=== PATIENT | male | born 1935 | race Caucasian/White ===

== ENCOUNTER 2019-12-06 21:07 | Emergency (ER) | payer OTHER, BC ==
--- OUTSIDE RECORDS SUMMARY | 2019-12-06 21:10 | XMS REPORT | Continuity of Care Document ---
:1935 Author Organization [facility] t Address 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 and and duodenum duodenum Anemia Anemia Disease Active 2017-04 [place] 219 Methodi 00:00: st 00 Coronary Coronary Disease Active 2017-04 [place] on artery artery 2-19 Methodi disease disease 00:00: st involving involving 00 picayune picayune coronary coronary artery artery Essential Essential Disease Active 2017-04 Simone ston hypertensi hypertensi 2-19 Me thodi on on 00:00: st 00 Type 2 Type 2 Disease Active 2017-04 [place] diabetes diabetes 2-19 Method i mellitus mellitus 00:00: st 00 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 [place] hyperchole hyperchole 2-19 Me thodi sterolemia sterolemia 00:00: st 00 Acute Acute Disease Active 2017-04 Overview: [place] blood loss blood loss 2-19 Added Me thodi anemia anemia 00:00: automatic st 00 ally from request for surgery [id number] Carotid Carotid Disease Active [place] stenosis, stenosis, 1-11 Meth maira right right 00:00: st 00 Post-opera Post-opera Disease Active [place] tive pain tive pain 1-11 Meth maira 00:00: st 00 Hyperchole Problem Active 2018-11-28 M emoria sterolemia 00:44:14 l (disorder) Jules combs Hyperchole sterolemia (disorder) Active Problem 11/28/2018 Medical Group Hypertensi Problem Active 2018-11-28 M emoria ve 00:44:14 l disorder, [place] systemic Hypertensi arterial ve (disorder) disorder, systemic arterial (disorder) Active Problem 11/28/2018 Medical Group History of Problem Active 2018-11-28 M emoria adenomatou 00:44:14 l s polyp of History Her page colon of (situation adenomatou ) s polyp of colon (situation ) Active Problem 11/28/2018 Medical Group Allergies, Adverse Reactions, Alerts Allergy Allergy Status Severity Reaction(s) Onset Inactive Treating Comm ents Source Name Type Date Date Clinician No Known No Known Active Memori a Medicati Medicati l on on Saurav Jovel s s Family History Family Member Diagnosis Comments Start Date Stop Date Source Natural father Heart disease [facility] Natural mother Heart disease [facility] Social History Social Habit Start Date Stop Date Quantity Comments Source Sex Assigned At [facility] ethodist Social History 2018-11-10 2018-11-10 [facility] Julieta haywood 18:46:08 18:46:08 Alcohol intake 2018-04-10 2018-04-10 Current drinker [place] [facility] 00:00:00 00:00:00 of alcohol (finding) Tobacco Comment 2017-04-25 2017-04-25 quit in 1981 [facility] 00:00:00 00:00:00 Alcohol Comment 2017-04-25 2017-04-25 once in a while [facility] 00:00:00 00:00:00 - beer Smoking Status Start Date Stop Date Source Former smoker 2018-04-10 00:00:00 2018-04-10 00:00:00 [facility] Medications Ordered Filled Start Stop Current Ordering Indication Dosage Frequency Signature Comments Components Source Medication Medication Date Date Medication? Clinician (SIG) Name Name polyethylen Yes See Helen freitas e glycol 11-10 Instructio l 3350 with 19:01: ns, as Jules combs electrolyte 00 directed, s oral # 4,000 powder for mL, 0 solution Refill(s), Pharmacy: [facility] [place], this is the generic of Golytely being used as a bowel prep, not Miralax simvastatin Yes 40 mg = 1 M emoria 40 mg oral 7-29 tab, PO, l tablet 18:46: Bedtime, # Sima nn 00 90 tab, 1 Refill(s) Acetaminoph Yes 1 tab, PO, Memoria en 325 MG / 7-29 Q6H, 0 l Hydrocodone 18:46: Refill(s) [place] Bitartrate 00 10 MG Oral Tablet [[place] 10/325] finasteride Yes 5 mg = 1 Me moria 5 mg oral 7-29 tab, PO, l tablet 18:46: Daily, # [place] 00 30 tab, 0 Refill(s) Aspirin Yes 0 Memoria 7-29 Refill(s) l 18:46: Saurav 00 terazosin Yes 10 mg = 1 Mem oria 10 mg oral 7-29 cap, PO, l capsule 18:46: Bedtime, 0 Herm jero 00 Refill(s) simvastatin 2017-04 Yes 40mg QD Take 40 mg [place] (ZOCOR) 40 2-21 by mouth Metho di MG tablet 19:28: nightly. st 50 terazosin 2017-04 Yes 10mg QD Take 10 mg [place] (HYTRIN) 5 2-21 by mouth Metho di MG capsule 19:28: nightly. st 50 HYDROcodone 2017-04 Yes 1{tbl} Q6H Take 1 [place] -acetaminop 2-21 tablet by Met matt jenkins (NORCO) 19:28: mouth st 10-325 mg 50 every 6 per tablet (six) hours as needed for moderate pain. latanoprost 2017-04 Yes 1[drp] QD Administer [place] (XALATAN) 2-21 1 drop to Metho di 0.005 % 19:28: both eyes st ophthalmic 50 nightly. solution Vital Signs Vital Name Observation Time Observation Value Comments Source Height 2018-11-10 18:42:00 175.26 cm Monty Mg Weight 2018-11-10 18:42:00 Monty Mg Heart Rate 2018-11-10 18:42:00 Monty Mg BMI Calculated 2018-11-10 18:42:00 Helen Mike Systolic (mm Hg) 2018-11-10 18:42:00 Ryan kayli Saurav Diastolic (mm Hg) 2018-11-10 18:42:00 Mem orial [place] Procedures Procedure Date / Time Performed Performing Clinician Kenneth torres Colonoscopy 2018-11-20 05:00:00 [facility] Cataract surgery [facility] Jules n Heart valvuloplasty [facility] Hiatus hernia repair [facility] He ann Open heart surgery [facility] jero Repair [facility] heart valve [facility] Plan of Care Planned Activity Planned Date Details Comments Source Future Scheduled 2020-01-14 INFLUENZA VACCINE [place] [facility] 00:00:00 [code = INFLUENZA VACCINE] Future Scheduled 2001 65+ PNEUMOCOCCAL [place] [facility] 00:00:00 VACCINE (1 of 2 - PCV13) [code = 65+ PNEUMOCOCCAL VACCINE (1 of 2 - PCV13)] Future Scheduled 1986 SHINGLES VACCINES (#1) [place] [facility] 00:00:00 [code = SHINGLES VACCINES (#1)] Future Scheduled 1946 DIABETIC FOOT EXAM [place] [facility] 00:00:00 [code = DIABETIC FOOT EXAM] Future Scheduled 1946 URINE MICROALBUMIN [place] [facility] Test 00:00:00 [code = URINE MICROALBUMIN] Future Scheduled 1936 DIABETIC RETINAL EYE [place] [facility] Test 00:00:00 EXAM [code = DIABETIC RETINAL EYE EXAM] Encounters Start End Encounter Admission Attending Care Care Encounter Source Date/Time Date/Time Type Type Clinicians Facility Department ID 2018-11-24 2018-11-25 Outpatient [facility] [id number] 15:55:39 23:59:59 00 2018-11-11 2018-11-11 Outpatient [facility] [id number] 10:00:00 23:59:59 2018-11-10 2018-11-10 Outpatient Joseph [facility] [id number] 14:15:00 23:59:59 Aj Mittal 00 Results This patient has no known results.
--- OUTSIDE RECORDS SUMMARY | 2019-12-06 21:10 | XMS REPORT | Clinical Summary ---
:1935 Author Organization [facility] Address [address] [place] [address] Care Team Providers Name Role Phone Roge Hays MD Primary Care Provider Allergies No Known Allergies Medications Medication Sig Dispensed Refills Start Date End Date Status simvastatin (ZOCOR) Take 40 mg by mouth 0 Active 40 MG tablet nightly. terazosin (HYTRIN) 5 Take 10 mg by mouth 0 Active MG capsule nightly. HYDROcodone-acetamino Take 1 tablet by 0 Active phen (NORCO) 10-325 mouth every 6 (six) mg per tablet hours as needed for moderate pain. latanoprost (XALATAN) Administer 1 drop 0 Active 0.005 % ophthalmic to both eyes solution nightly. 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/07/2018 duodenum Anemia 04/02/2018 Coronary artery disease involving [place] coronary elisabet ry 04/02/2018 Essential hypertension 04/02/2018 Type 2 diabetes mellitus 04/02/2018 Pure hypercholesterolemia 04/02/2018 Acute blood loss anemia 04/02/2018 Overview: Added automatically from request for edith romeo [id number] Carotid stenosis, right 04/25/2017 Post-operative pain 04/25/2017 Family History Medical History Relation Name Comments Heart disease Father Heart disease Mother Relation Name Status Comments Father Mother Social History Tobacco Use Types Packs/Day Years Used Date Former Smoker 15 Smokeless Tobacco: Never Used Comments: quit in 1980 Alcohol Use Drinks/Week oz/Week Comments Yes once in a while - beer Sex Assigned at Date Recorded Not on file Job Start Date Occupation Industry Not on file Not on file Not on file Travel History Travel Start Travel End No recent travel history available. Last Filed Vital Signs Not on file Plan of Treatment Health Maintenance Due Date Last Done Comments DIABETIC RETINAL EYE EXAM 1935 DIABETIC FOOT EXAM 1945 URINE MICROALBUMIN 1946 SHINGLES VACCINES (#1) 1986 65+ PNEUMOCOCCAL VACCINE (1 of 2 - PCV13) 2001 INFLUENZA VACCINE 01/14/2020 Implants Implanted Type Area Canvas Cutter Hand Device Shelf Model / Identifier Expiration Serial / Lot Date Device Vasclr Clsr Vasoactive Intstnl Peptd 6fr Angio- Seal - [id number] Cardiovascular N/A: 12/13/2018 [id number] / Implanted: 02/04/2018 at [facility] (Quantity not on file) Implants N/A / [id number] Stent Crtd Xact Slf-Xpndbl Tprd Oleg 6-8x40mm - [id number] Perip eral or N/A: NIEVES 09/12/2020 [id number] / Implanted: 02/04/2018 at [facility] (Quantity not on file) Zach iary Stents N/A VASCULAR / DEVICES [id number] Kit Shunt Crtd Artery Rdopq Line 6in Strl Hume - [id number] Edith gical N/A: COVIDIEN 08/20/2021 [id number] / Implanted: 04/25/2017 at [facility] (Quantity not on file) Imp lants; N/A YIMI / Expanders; HEALTHCARE [id number] Extenders; Surgical Wires Catheter Thrmbtmy Neuron Max 088 Str 6fr 80x4cm - [id number] Edith gical N/A: [employer] [id number] / Implanted: 02/04/2018 at [facility] (Quantity not on file) Implants; N/A / Expanders; Extenders; Surgical Wires Fabric Vasclr Grft Velour 3in 3in 0.8cm 7.6cm Brad Francisco shield - [id number] Vascular Graft N/A: [employer] 04/14/2021 [id number] / Implanted: 04/25/2017 at [facility] (Quantity not on file) N/A RUBEN / [id number] Results Not on fileafter 12/05/2018 Insurance Payer Benefit Plan / Subscriber ID Effective Dates Phone Addre ss Type Group MEDICARE MEDICARE PART A xxxxxxxxxx 2001-Present [place], [place] Medicare AND B BCBS BCBS PAR/TRAD xxxxxxxxxxxx 2013-Present Indemnity PLAN Advance Directives For more information, please contact: [phone] Type Date Recorded Patient Executive Administrator Explanati on Advance Directives, Living 04/02/2018 12:40 PM Will and Medical Power of Packaging Machine Operator Code Status Date Activated Date Inactivated Comments Full Code 04/02/2018 4:13 PM 04/04/2018 11:28 PM Code Status decision reached by: Patient Full Code 04/02/2018 3:58 PM 04/02/2018 4:13 PM Code Status decision reached by: Patient
--- OUTSIDE RECORDS SUMMARY | 2019-12-06 21:10 | XMS REPORT | Continuity of Care Document ---
:1935 Author Organization [facility] Care Team Providers Name Role Phone [facility] Unavailable Un available Problems Problem Status Onset Classification Date Comments Sourc e Date Reported Hypercholesterolemia Active Problem 11/28/2018 MH (disorder) Medical Group Hypertensive disorder, Active Problem 11/28/2018 systemic arterial Me dical (disorder) Group History of adenomatous Active Problem 11/28/2018 polyp of colon Medic al (situation) Group Medications Medication Details Route Status Patient Ordering Order Source Instructions Provider Date polyethylene See Active glycol 3350 with Instruction 019 Med ical electrolytes s, as Group oral powder for directed, # solution 4,000 mL, 0 Refill(s), Pharmacy: [facility] [place], this is the generic of Golytely being used as a bowel prep, not Miralax simvastatin 40 40 mg = 1 Active MH mg oral tablet tab, PO, 019 Medical Bedtime, # Group 90 tab, 1 Refill(s) Acetaminophen 1 tab, PO, Active MH 325 MG / Q6H, 0 019 Medical Hydrocodone Refill(s) Group Bitartrate 10 MG Oral Tablet [[place] 10/325] finasteride 5 mg 5 mg = 1 Active oral tablet tab, PO, 019 Medical Daily, # 30 Group tab, 0 Refill(s) Aspirin 0 Refill(s) Active MH 019 Medical Group terazosin 10 mg 10 mg = 1 Active oral capsule cap, PO, 019 Medical Bedtime, 0 Group Refill(s) Allergies, Adverse Reactions, Alerts Substance Category Reaction Severity Reaction Status Date Comments S ource type Reported No Known Assertion Drug MH Medication allergy Medic al Allergies Group Immunizations No Data Provided for This Section Results No Data Provided for This Section Pathology Reports No Data Provided for This Section Diagnostic Reports No Data Provided for This Section Consultation Notes No Data Provided for This Section Discharge Summaries No Data Provided for This Section History and Physicals No Data Provided for This Section Vital Signs Vital Sign Value Date Comments Source Height 175.26 cm 11/10/2018 Medical Grou p Weight 86.875 11/10/2018 Medical Grou p Heart Rate 80 11/10/2018 Medical Grou p BMI Calculated 28.28 11/10/2018 Medical Gr oup Systolic (mm Hg) 136 11/10/2018 Medical Group Diastolic (mm Hg) 59 11/10/2018 Medical Group Encounters Location Location Encounter Encounter Reason Attending ADM DC Stat us Source Details Type Number For Provider Date Date Visit Outpatient [id number] Aj 11/10 [facility] Saurav MG Outpatient [id number] Aj 11/10 11/11 [facility] Ruiz /2018 Med ical ology Group [place] [facility] [id number] 11/11 Act randall [facility] Jules n , [facility] Outpatient [id number] 11/11 11/12 Internal /2018 Medical Medicine Group [place] [facility] Outside [id number] 11/24 11/26 Gastroenter Medical /2018 Medi sparkle ology Records Group [place] Procedures Procedure Code Date Perfomer Comments Source Colonoscopy [id number] 11/20/2018 Medical Group Cataract surgery [id number] Medic al Group Heart valvuloplasty [id number] Me dical Group [place] hernia [id number] Medical repair Group Open heart surgery [id number] Med ical Group Repair of heart [id number] Medica l valve Group Assessment and Plan No Data Provided for This Section Plan of Care No Data Provided for This Section Social History Social History Date Source Social History TypeResponse 11/10/2018 Medical G roup Alcohol Never Substance Abuse Use: None. Smoking Status Former smoker; Exposure to Tobacco Smoke None; Cigarette Smoking Last 365 Days No; Reg Smoking Cessation Counseling No entered on: 11/10/18 Family History No Data Provided for This Section Advance Directives No Data Provided for This Section Functional Status No Data Provided for This Section
[2019-12-06 22:11] LABS: Absolute Lymphocytes (CBC) 1.2 K/uL (0.7-4.9); Basophils % 0.7 % (0-1.3); Hematocrit 40.1 % (39.6-49.0); Lymphocytes % 26.1 % (15.3-44.8); MPV 8.8 fL (7.6-11.3); RBC Red Blood Cell Count 4.51 M/uL (4.33-5.43)
[2019-12-06 22:24] LABS: BUN Blood Urea Nitrogen 19 mg/dL (7-18); Bicarbonate 29 mmol/L (21-32); Glucose Level 135 mg/dL (74-106); Potassium 4.5 mmol/L (3.5-5.1); Sodium Level 136 mmol/L (136-145); Troponin (Emerg Dept Use Only) < 0.02 ng/mL (0.0-0.045)
--- NOTE | 2019-12-07 00:25 | ER ---
Nurse's Notes [facility] Name: Stephon Baig Age: 84 yrs Sex: Male : 1935 Arrival Date: 12/06/2019 Time: 21:11 Bed 13 Private MD: Diagnosis: Pleurisy;Pneumonia, unspecified organism Presentation: 12/05 21:24 Chief complaint: Patient states: "I think I am having a muscle spasms. I was picking up jd3 a heavy pot on Saturday and might have hurt my left shoulder. since then it hurts to move my left arm and turn my head. it feels like someone is stabbing me in my shoulder.". Coronavirus screen: At this time, the client does not indicate any symptoms associated with coronavirus-19. Ebola Screen: Patient negative for fever greater than or equal to 101.5 degrees Fahrenheit, and additional compatible Ebola Virus Disease symptoms. Initial Sepsis Screen: Does the patient meet any 2 criteria? No. Patient's initial sepsis screen is negative. Does the patient have a suspected source of infection? No. Patient's initial sepsis screen is negative. Risk Assessment: Do you want to hurt yourself or someone else? Patient reports no desire to harm self or others. Onset of symptoms was December 04, 2019. 21:24 Method Of Arrival: Ambulatory jd3 21:24 Acuity: GREGORIO 3 jd3 Historical: - Allergies: 21:34 No Known Allergies; jd3 - Home Meds: 21:34 Simvastatin Oral [Active]; Hytrin Oral [Active]; Aspirin Oral [Active]; jd3 Hydrocodone-Acetaminophen Oral [Active]; - PMHx: 21:34 bypass; heart vavle replacement; Hyperlipidemia; Kidney stones; steel plate to left jd3 arm; prostate problem; High Cholesterol; - PSHx: 21:34 heart valve; left arm; Hernia repair; jd3 - Immunization history:: Adult Immunizations unknown. - Social history:: Smoking status: Patient denies any tobacco usage or history of. - Family history:: not pertinent. - Hospitalizations: : No recent hospitalization is reported. Screenin:30 Abuse screen: Denies threats or abuse. Denies injuries from another. Nutritional rr5 screening: No deficits noted. Tuberculosis screening: No symptoms or risk factors identified. Fall Risk IV access (20 points). Total Cross Fall Scale indicates No Risk (0-24 pts). Assessment: 21:30 General: Appears in no apparent distress. uncomfortable, Behavior is calm, cooperative, rr5 appropriate for age. 21:30 Pain: Complains of pain in left shoulder Pain currently is 8 out of 10 on a pain scale. rr5 Quality of pain is described as aching, Pain began gradually, Is intermittent. Neuro: Level of Consciousness is awake, alert, obeys commands, Oriented to person, place, time, situation. Cardiovascular: Capillary refill < 3 seconds Patient's skin is warm and dry. Respiratory: Airway is patent Respiratory effort is even, unlabored, Respiratory pattern is regular, symmetrical. GI: No signs and/or symptoms were reported involving the gastrointestinal system. : No signs and/or symptoms were reported regarding the genitourinary system. EENT: No signs and/or symptoms were reported regarding the EENT system. Derm: Skin is fragile, is thin, Skin temperature is warm. Musculoskeletal: Reports pain in left shoulder Pain is 8 out of 10 on a pain scale. 22:20 Reassessment: Patient appears in no apparent distress at this time. Patient is alert, rr5 oriented x 3, equal unlabored respirations, skin warm/dry/pink. awaiting for result. 23:10 Reassessment: Patient appears in no apparent distress at this time. Patient is alert, rr5 oriented x 3, equal unlabored respirations, skin warm/dry/pink. awaiting for CT PE angio. 23:40 Reassessment: Patient appears in no apparent distress at this time. Patient is alert, rr5 oriented x 3, equal unlabored respirations, skin warm/dry/pink. back from CT. 12/06 00:40 Reassessment: Patient appears in no apparent distress at this time. Patient is alert, rr5 oriented x 3, equal unlabored respirations, skin warm/dry/pink. discharge instruction given and explained without complaints made. Vital Signs: 12/05 21:29 BP 151 / 60; Pulse 77; Resp 16 S; Temp 98.0(O); Pulse Ox 100% on R/A; Weight 83.01 kg jd3 (R); Height 5 ft. 9 in. (175.26 cm) (R); Pain 8/10; 22:57 BP 146 / 62; Pulse 68; Resp 17; Pulse Ox 99% ; rr5 12/06 00:00 BP 126 / 89; Pulse 79; Resp 15; Pulse Ox 99% ; rr5 00:40 BP 131 / 72; Pulse 60; Resp 16; Pulse Ox 99% on R/A; rr5 12/05 21:29 Body Mass Index 27.02 (83.01 kg, 175.26 cm) jd3 ED Course: 12/05 21:11 Patient arrived in ED. es 21:25 Naveen Nunez MD is Attending Physician. rn 21:25 Stephon Watkins RN is Primary Nurse. rr5 21:29 Triage completed. jd3 21:30 Arm band placed on. jd3 21:30 Patient has correct armband on for positive identification. Bed in low position. Call rr5 light in reach. site monitor on. Pulse ox on. NIBP on. 21:40 EKG done, by ED staff, reviewed by Naveen Nunez MD. rr5 21:59 Inserted saline lock: 20 gauge in right forearm, using aseptic technique. Blood rr5 collected. 23:43 CT Chest For PE Angio In Process Unspecified. EDMS 12/06 00:35 covid. rr5 00:35 No provider procedures requiring assistance completed. IV discontinued, intact, rr5 bleeding controlled, No redness/swelling at site. Pressure dressing applied. Administered Medications: 00:25 Drug: LevaQUIN 500 mg Route: PO; mt2 00:41 Follow up: Response: No adverse reaction rr5 Outcome: 00:25 Discharge ordered by MD. rn 00:41 Discharged to home ambulatory. rr5 00:41 Condition: stable 00:41 Discharge instructions given to patient, Instructed on discharge instructions, follow up and referral plans. medication usage, Demonstrated understanding of instructions, follow-up care, medications, Prescriptions given X 1. 00:41 Patient left the ED. rr5 Addendum: 12/09/2019 14:53 Addendum: COVID-19 Result: Negative result given to RN to notify pt. Unable to leave a a5 voice mail due to the number provided was either not a working number, the voice mail has not been set up, or the voice mailbox is full.. 12/14/2019 16:22 Addendum: COVID-19 Result: Negative result given to RN to notify pt. Notified pt of i w negative COVID 19 swab results. Pt advised that even with a negative test result they should remain in isolation until symptom free for 3 days without medication. Pt also advised to return to the ED for worsening symptoms. Signatures: Dispatcher [employer] Do [place] Irene, RN RN iw Naveen Nunez MD MD rn Calderon, Audri, RN RN aa5 Laurent Julien RN RN jd3 Stephon Watkins RN RN rr5 Fransisca Minaya RN RN mt2
--- NOTE | 2019-12-07 00:25 | EDPHYS ---
Physician Documentation [facility] Name: Stephon Baig Age: 84 yrs Sex: Male : 1935 Arrival Date: 12/06/2019 Time: 21:11 Bed 13 Private MD: ED Physician Naveen Nunez HPI: 12/05 22:13 This 84 yrs old Male presents to ER via Ambulatory with complaints of rn Shoulder Pain/thorax pain. 22:13 The patient or guardian complains of pain. left scapular area. Onset: The rn symptoms/episode began/occurred 2 day(s) ago. Modifying factors: the symptoms are alleviated by nothing. The symptoms are aggravated by deep breath. Severity of symptoms: At their worst the symptoms were moderate, in the emergency department the symptoms are unchanged. The patient has not experienced similar symptoms in the past. Reports left posterior thoracic and left shoulder pain, hurts to take deep breath, no known injury, does remember lifting something heavy the day before this happened, no fever/cough/chest pain/abd pain. Hurts a little when moves left arm. Did fall, but fall happened after pain had already started. . Historical: - Allergies: 21:34 No Known Allergies; jd3 - Home Meds: 21:34 Simvastatin Oral [Active]; Hytrin Oral [Active]; Aspirin Oral [Active]; jd3 Hydrocodone-Acetaminophen Oral [Active]; - PMHx: 21:34 bypass; heart vavle replacement; Hyperlipidemia; Kidney stones; steel plate to left jd3 arm; prostate problem; High Cholesterol; - PSHx: 21:34 heart valve; left arm; Hernia repair; jd3 - Immunization history:: Adult Immunizations unknown. - Social history:: Smoking status: Patient denies any tobacco usage or history of. - Family history:: not pertinent. - Hospitalizations: : No recent hospitalization is reported. ROS: 22:13 Constitutional: Negative for fever, chills, and weight loss, Eyes: Negative for injury, rn pain, redness, and discharge, Neck: Negative for injury, pain, and swelling, Cardiovascular: Negative for palpitations, and edema, Respiratory: Negative for shortness of breath, cough, wheezing, + pleuritic chest pain Abdomen/GI: Negative for abdominal pain, nausea, vomiting, diarrhea, and constipation, Back: Negative for injury and pain, MS/Extremity: Negative for injury and deformity, Skin: Negative for injury, rash, and discoloration, Neuro: Negative for headache, weakness, numbness, tingling, and seizure. Exam: 22:03 ECG was reviewed by the Attending Physician. rn 22:13 Constitutional: This is a well developed, well nourished patient who is awake, alert, rn and in no acute distress. Head/Face: Normocephalic, atraumatic. Neck: Trachea midline, no masses palpated, and no cervical lymphadenopathy. Supple, full range of motion without nuchal rigidity, or vertebral point tenderness. No Meningismus. Chest/axilla: Normal chest wall appearance and motion. Nontender with no deformity. No lesions are appreciated. Cardiovascular: Regular rate and rhythm. No pulse deficits. Respiratory: Speaking full sentences. + splinting with deep breath. No increased work of breathing, no retractions or nasal flaring. Abdomen/GI: soft, non-tender Back: No spinal tenderness. No costovertebral tenderness. Full range of motion. MS/ Extremity: Pulses equal, no cyanosis. Neurovascular intact. Full, normal range of motion. Equal circumference. Neuro: Awake and alert, GCS 15, oriented to person, place, time, and situation. Cranial nerves II-XII grossly intact. Motor strength 5/5 in all extremities. Sensory grossly intact. Cerebellar exam normal. Vital Signs: 21:29 BP 151 / 60; Pulse 77; Resp 16 S; Temp 98.0(O); Pulse Ox 100% on R/A; Weight 83.01 kg jd3 (R); Height 5 ft. 9 in. (175.26 cm) (R); Pain 8/10; 22:57 BP 146 / 62; Pulse 68; Resp 17; Pulse Ox 99% ; rr5 12/06 00:00 BP 126 / 89; Pulse 79; Resp 15; Pulse Ox 99% ; rr5 00:40 BP 131 / 72; Pulse 60; Resp 16; Pulse Ox 99% on R/A; rr5 12/05 21:29 Body Mass Index 27.02 (83.01 kg, 175.26 cm) jd3 MDM: 12/05 21:25 Patient medically screened. rn 12/06 00:21 Differential diagnosis: pleurisy, atelectasis, pneumonia, strain, COVID-19. Data rn reviewed: vital signs, nurses notes, lab test result(s), EKG, radiologic studies, CT scan, and as a result, I will discharge patient. Counseling: I had a detailed discussion with the patient and/or guardian regarding: the historical points, exam findings, and any diagnostic results supporting the discharge/admit diagnosis, lab results, radiology results, the need for outpatient follow up, to return to the emergency department if symptoms worsen or persist or if there are any questions or concerns that arise at home. Special discussion: Based on the patient's history, exam, and Dx evaluation, there is no indication for emergent intervention or inpatient Tx. It is understood by the patient/guardian that if the Sx's persist or worsen they need to return immediately for re-evaluation. I discussed with the patient/guardian in detail that at this point there is no indication for admission to the hospital. It is understood, however, that if the symptoms persist or worsen the patient needs to return immediately for re-evaluation. ED course: CT chest neg for PE. Shows haziness of bilateral lungs, possible early pneumonia, will swab for COVID-19 and dc home with OTC anti-inflammatories and return precautions.. 12/05 21:33 Order name: CBC with Diff; Complete Time: 22:32 rn 12/05 21:33 Order name: Basic Metabolic Panel; Complete Time: 22:32 rn 12/05 21:33 Order name: CT Chest For PE Angio rn 12/05 21:33 Order name: Troponin (emerg Dept Use Only); Complete Time: 22:32 rn 12/06 00:21 Order name: COVID-19 rn 12/05 21:33 Order name: IV Start; Complete Time: 21:59 rn 12/05 21:33 Order name: EKG; Complete Time: 21:34 rn 12/05 21:33 Order name: EKG - Nurse/Tech; Complete Time: 21:59 rn EC/23 22:03 Rate is 74 beats/min. Rhythm is regular. QRS Lagrange is Normal. DE interval is normal. QRS rn interval is normal. QT interval is normal. No Q waves. T waves are Inverted in leads V2, V3, V4. No ST changes noted. Clinical impression: NSR w/ Non-specific ST/T Changes. Interpreted by me. Reviewed by me. Administered Medications: 12/06 00:25 Drug: LevaQUIN 500 mg Route: PO; mt2 00:41 Follow up: Response: No adverse reaction rr5 Disposition: 12/07/19 00:25 Discharged to Home. Impression: Pleurisy, Pneumonia, unspecified organism. - Condition is Stable. - Discharge Instructions: Pleurisy, Community-Acquired Pneumonia, Adult, Wsgj-ig-Prit. - Prescriptions for Levaquin 500 mg Oral Tablet - take 1 tablet by ORAL route once daily for 10 days; 10 tablet. - Medication Reconciliation Form, Thank You Letter, Antibiotic Education, Prescription Opioid Use form. - Follow up: Private Physician; When: As needed; Reason: Recheck today's complaints, Re-evaluation by your physician. - Problem is new. - Symptoms have improved. Signatures: Dispatcher [employer] EDMS Naveen Nunez MD MD rn Davies, Jonathon RN RN jd3 Stephon Watkins RN RN rr5 Fransisca Minaya RN RN mt2 Corrections: (The following items were deleted from the chart) 00:41 00:25 12/07/2019 00:25 Discharged to Home. Impression: Pleurisy; Pneumonia, unspecified rr5 organism. Condition is Stable. Forms are Medication Reconciliation Form, Thank You Letter, Antibiotic Education, Prescription Opioid Use. Follow up: Private Physician; When: As needed; Reason: Recheck today's complaints, Re-evaluation by your physician. Problem is new. Symptoms have improved. rn
[2019-12-07] MEDS ORDERED: levoFLOXacin 500 MG TAB ONE (00:34)
--- NOTE | 2019-12-07 10:24 | RAD REPORT ---
EXAM DESCRIPTION: CT chest angiography with intravenous contrast CLINICAL HISTORY: 84-year-old male with left posterior chest pain with deep breath and left shoulder pain. TECHNIQUE: Following the administration of intravenous contrast, multiple high-resolution axial imag es of the chest were performed followed by sagittal and coronal reconstructed images. Sagittal and co andrews MIP images were reconstructed. The CT study is performed according to ALARA (as low as reasonab ly achievable) or ALARA/IMAGE GENTLY, with automatic adjustment of mA and/or kV according to patient size. Performed on: 12/06/2019 at 11:27 PM COMPARISON: No prior studies were available for comparison. FINDINGS: There is satisfactory visualization and contrast opacification of pulmonary arteries. No definite intra-arterial filling defects are identified to suggest acute or chronic pulmonary embolis m. The thoracic aorta is normal in caliber and contour without evidence of aneurysm or dissection. Th ere are moderate atherosclerotic calcifications along the thoracic aorta. The lungs are well expanded. There is some motion artifact on the images resulting in slight degradat ion of image quality. There is mild hazy opacification of the lungs bilaterally which may be related to breathing motion artifact. Mild edema or inflammatory changes are not entirely excluded. There is minimal fibrosis and/or atelectasis bilaterally. There are no pleural effusions. There is no pneumoth orax. The heart is top normal in size. There is no pericardial effusion. There is no definite reflux of con trast into the hepatic veins to suggest right heart strain.The RV/LV ratio is within normal limits. T here are remote postsurgical changes of the mediastinum. There are mildly prominent mediastinal lymph nodes which are nonspecific. These may be reactive infla mmatory in nature. No acute osseous abnormality is identified. There is degenerative spondylosis along the thoracic spin e. The upper abdominal structures reveal a 1.6 x 1.4 cm low density nodule arising from the apex of the right adrenal gland measuring approximately 7 Hounsfield units most consistent with an adrenal adenom a. No follow-up imaging is necessary. There is increased density in the region of the gallbladder fun dus suspicious for cholelithiasis. There is a small hiatal hernia. IMPRESSION: 1. No CT evidence to suggest acute or chronic pulmonary embolism, aortic aneurysm or aor tic dissection. 2. There is some breathing motion artifact on the images resulting in degradation of image quality. T here is very mild hazy opacification of the lungs which could be related to breathing motion artifact , edema or inflammatory changes. 3. Remote postsurgical changes of the mediastinum. 4. Mildly prominent, nonspecific mediastinal lymph nodes which may be reactive inflammatory in nature . 5. Approximately 1.6 x 1.4 cm right adrenal adenoma. No follow-up imaging is recommended. 6. Findings suspicious for cholelithiasis. 7. Small hiatal hernia. Electronically signed by: Vita Allen DO 12/07/2019 12:03 AM CDT Due to temporary technical issues with the PACS/Fluency reporting system, reports are being signed by the in house radiologist without review as a courtesy to ensure prompt reporting. The interpreting r adiologist is fully responsible for the content of the report.
[2019-12-11 20:43] VITALS: TEMP 98
[2019-12-11 20:45] VITALS: O2SAT 99
[2019-12-11 20:47] VITALS: BP 131/72
== END 2019-12-07 00:41 | disposition home or self-care (01) ==
LOC: ER 21:07
DX: J18.9 Pneumonia, unspecified organism (principal); Z20.828 Contact with and (suspected) exposure to other viral communicable diseases; R09.1 Pleurisy; E78.5 Hyperlipidemia, unspecified; E78.00 Pure hypercholesterolemia, unspecified; Z95.2 Presence of prosthetic heart valve; Z79.82 Long term (current) use of aspirin
CPT/HCPCS: 93005; 85025; 80048; 36415; 84484; 71275; 99285; U0002; Q9967

== ENCOUNTER 2020-01-06 19:23 | Inpatient (IN) | payer OTHER, BC ==
--- OUTSIDE RECORDS SUMMARY | 2020-01-06 19:26 | XMS REPORT | Clinical Summary ---
:1935 Author Organization [facility] Address [address] [place] [address] Care Team Providers Name Role Phone Roge Hays MD Primary Care Provider Allergies No Known Active Allergies Medications Medication Sig Dispensed Refills Start [...] duodenum Anemia 04/02/2018 Coronary artery disease involving [place] coronary elisabet ry 04/02/2018 Essential hypertension 04/02/2018 Type 2 diabetes mellitus 04/02/2018 Pure hypercholesterolemia 04/02/2018 Acute blood loss anemia 04/02/2018 Overview: Added automatically from request for edith romeo [id number] Carotid stenosis, right 04/25/2017 Post-operative pain 04/25/2017 [...] Assigned at Date Recorded Not on file Last Filed Vital Signs Not on file Plan of Treatment Health Maintenance Due Date Last Done Comments DIABETIC RETINAL EYE EXAM 1935 DIABETIC FOOT EXAM 1945 URINE MICROALBUMIN 1946 SHINGLES VACCINES (#1) 1986 65+ PNEUMOCOCCAL VACCINE (1 of 1 - PPSV23) 2001 INFLUENZA VACCINE 12/15/2019 Implants Implanted Type Area Chemical Processing Equipment Repairer Device Shelf Model / Identifier Expiration Serial / Lot Date Device Vasclr Clsr Vasoactive Intstnl Peptd 6fr Angio- Seal - [id number] Cardiovascular N/A: 12/13/2018 [id number] / Implanted: 02/04/2018 at [facility] (Quantity not on file) Implants N/A / [id number] Stent Crtd Xact Slf-Xpndbl Tprd Oleg 6-8x40mm - [id number] Perip eral or N/A: NIEVES 09/12/2020 [id number] / Implanted: 02/04/2018 at [facility] (Quantity not on file) Zach iary Stents N/A VASCULAR / DEVICES [id number] Kit Shunt Crtd Artery Rdopq Line 6in Strl [place] - [id number] Edith gical N/A: COVIDIEN 08/20/2021 [id number] / Implanted: 04/25/2017 at [facility] (Quantity not on file) Imp lants; N/A YIMI / Expanders; HEALTHCARE [id number] Extenders; Surgical Wires Catheter Thrmbtmy Neuron Max 088 Str 6fr 80x4cm - [id number] Edith gical N/A: [employer] [id number] / Implanted: 02/04/2018 at [facility] (Quantity not on file) Implants; N/A / Expanders; Extenders; Surgical Wires Fabric Vasclr Grft Velour 3in 3in 0.8cm 7.6cm Brad Francisco shield - [id number] Vascular Graft N/A: [employer] 04/14/2021 [id number] / Implanted: 04/25/2017 at [facility] (Quantity not on file) N/A RUBEN / [id number] Results Not on fileafter 01/05/2019 Insurance Payer Benefit Plan / Subscriber ID Effective Dates Phone Addre ss Type Group MEDICARE MEDICARE PART A [id number] 2001-Present [place], [place] Medicare AND B BCBS BCBS PAR/TRAD [id number] 2013-Present Indemnity PLAN (Home) [place] [address] Advance Directives For more information, please contact: [phone] Type Date Recorded Patient Supervising Editor News Reel Explanati on Advance Directives, Living 04/02/2018 12:40 PM Will and Medical Power of Director Stars Code Status Date Activated Date Inactivated Comments Full Code 04/02/2018 4:13 PM 04/04/2018 11:28 PM Code Status decision reached by: Patient Full Code 04/02/2018 3:58 PM 04/02/2018 4:13 PM Code Status decision reached by: Patient
--- OUTSIDE RECORDS SUMMARY | 2020-01-06 19:26 | XMS REPORT | Continuity of Care Document ---
:1935 Author Organization [facility] t Address [address] [place] [address] Care Team Providers Name Role Phone Roge [...] duodenum duodenum Anemia Anemia Disease Active 2017-04 [place] 19 Methodi 00:00: st 00 Coronary Coronary Disease Active 2017-04 [place] artery artery 2-19 Methodi disease disease 00:00: st involving involving 00 [place] coronary coronary artery artery Essential Essential Disease Active 2017-04 [place] hypertensi hypertensi 2-19 Me thodi on on 00:00: st 00 Type 2 Type 2 Disease Active 2017-04 [place] diabetes diabetes 2-19 Method i mellitus mellitus 00:00: st 00 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 [place] hyperchole hyperchole 2-19 Me thodi sterolemia sterolemia 00:00: st 00 Acute Acute Disease Active 2017-04 Overview: [place] n blood loss blood loss 2-19 Added Me thodi anemia anemia 00:00: automatic st 00 ally from request for surgery [id number] Carotid Carotid Disease Active [place] stenosis, stenosis, 1-11 Meth maira right right 00:00: st 00 Post-opera Post-opera Disease Active [place] tive pain tive pain 1-11 Meth maira 00:00: st 00 Hyperchole Problem Active 2018-11-28 M emoria sterolemia 00:44:14 l (disorder) Jules n Hyperchole sterolemia (disorder) Active Problem 11/28/2018 Medical Group Hypertensi Problem Active 2018-11-28 M emoria ve 00:44:14 l disorder, [place] systemic Hypertensi arterial ve (disorder) disorder, systemic [...] Stop Date Source Natural father Heart disease [facility] Natural mother Heart disease [facility] Social History Social Habit Start Date Stop Date Quantity Comments Source Sex Assigned At [facility] Social History 2018-11-10 2018-11-10 [facility] 18:[facility]:08 18:46:08 Tobacco use and 2018-04-10 2018-04-10 Never used [facility] ethodist exposure 00:00:00 00:00:00 Alcohol intake 2018-04-10 2018-04-10 Current drinker [place] [facility] 00:00:00 00:00:00 of alcohol (finding) Tobacco Comment 2017-04-25 2017-04-25 quit in 1980 [place] [facility] 00:00:00 00:00:00 Alcohol Comment 2017-04-25 2017-04-25 once in a while [facility] 00:00:00 00:00:00 - beer Smoking Status Start Date Stop Date Source Former smoker 2018-04-10 00:00:00 2018-04-10 00:00:00 [facility] Medications Ordered Filled Start Stop Current Ordering Indication Dosage Frequency Signature Comments Components Source Medication Medication Date Date Medication? Clinician (SIG) Name Name polyethylen Yes See Memori a e glycol 11-10 Instructio l 3350 with 19:01: ns, as Jules n electrolyte 00 directed, s oral # 4,000 powder for mL, 0 solution Refill(s), Pharmacy: [facility] [place], this is the generic of Golytely being [...] ermann Bitartrate 00 10 MG Oral Tablet [[place] 10/325] finasteride Yes 5 mg = 1 Me moria 5 mg oral 7-29 tab, PO, l tablet 18:46: Daily, # Saurav 00 30 tab, 0 Refill(s) Aspirin Yes [...] Comments Source Height 2018-11-10 18:42:00 175.26 cm [facility] Weight 2018-11-10 18:42:00 [facility] [place] Heart Rate 2018-11-10 18:42:00 [facility] [place] BMI Calculated 2018-11-10 18:42:00 Helen link Saurav Systolic (mm Hg) 2018-11-10 18:42:00 Ryan milan Saurav Diastolic (mm Hg) 2018-11-10 18:42:00 [facility] orial [place] Procedures Procedure Date / Time Performed Performing Clinician Sourc e Colonoscopy 2018-11-20 05:00:00 [facility] Cataract surgery [facility] Jules n Heart valvuloplasty [facility] [place] hernia repair [facility] rmann Open heart surgery [facility] jero Repair of heart valve [facility] Plan of Care Planned Activity Planned Date Details Comments Source Future Scheduled 2019-12-15 INFLUENZA VACCINE [place] [facility] Test 00:00:00 [code = INFLUENZA VACCINE] Future Scheduled 2001 65+ PNEUMOCOCCAL [place] [facility] Test 00:00:00 VACCINE (1 of 1 - PPSV23) [code = 65+ PNEUMOCOCCAL VACCINE (1 of 1 - PPSV23)] Future Scheduled 1986 SHINGLES VACCINES (#1) [place] [facility] Test 00:00:00 [code = SHINGLES VACCINES (#1)] Future Scheduled 1946 DIABETIC FOOT EXAM [place] [facility] Test 00:00:00 [code = DIABETIC FOOT EXAM] Future Scheduled 1946 URINE MICROALBUMIN [place] [facility] Test 00:00:00 [code = URINE MICROALBUMIN] Future Scheduled 1935 DIABETIC RETINAL EYE [place] [facility] Test 00:00:00 EXAM [code = DIABETIC RETINAL EYE EXAM] Encounters Start End Encounter Admission Attending Care Care Encounter Source Date/Time Date/Time Type Type Clinicians Facility Department ID 2018-11-24 2018-11-25 Outpatient [facility] [id number] 15:55:39 23:59:59 00 2018-11-11 2018-11-11 Outpatient [facility] [id number] 10:00:00 23:59:59 2018-11-10 2018-11-10 Outpatient Joseph [facility] [id number] 14:15:00 23:59:59 Aj Mittal 00 Results This patient has no known results.
--- OUTSIDE RECORDS SUMMARY | 2020-01-06 19:26 | XMS REPORT | Continuity of Care Document ---
:1935 Author Organization [facility] Care Team Providers Name Role Phone [facility] Unavailable Un available Problems Problem Status Onset [...] # solution 4,000 mL, 0 Refill(s), Pharmacy: [facility] [place], this is the generic of Golytely being used as a bowel prep, not Miralax simvastatin 40 40 mg = 1 Active [facility] mg oral tablet tab, PO, 019 Medical Bedtime, # Group 90 tab, 1 Refill(s) Acetaminophen 1 tab, PO, Active MH 325 MG / Q6H, 0 019 Medical Hydrocodone Refill(s) Group Bitartrate 10 MG Oral Tablet [[place] 10/325] finasteride 5 mg 5 mg = [...] Number For Provider Date Date Visit Outpatient [id number] Aj 11/10 [facility] Saurav MG Outpatient [id number] Aj 11/10 11/11 [facility] /2018 Med ical ology Group [place] Outpatient [id number] 11/11 Act randall [facility] Jules n , [facility] Outpatient [id number] 11/11 11/12 Internal /2018 [facility] [place] [facility] Outside [id number] 11/24 11/26 Gastroenter Medical /2018 Medi sparkle ology Records Group [place] Procedures Procedure Code Date Perfomer Comments Source Colonoscopy [id number] 11/20/2018 Medical Group Cataract surgery [id number] Medic al Group Heart valvuloplasty [id number] Me dical Group [place] hernia [id number] Medical repair Group Open heart surgery [id number] Med ical Group Repair of heart [id number] Medica l valve Group Assessment and Plan [...]
--- NOTE | 2020-01-06 20:30 | RAD REPORT ---
EXAM DESCRIPTION: CT - Stone Protocol - 01/06/2020 8:20 pm CLINICAL HISTORY: Flank pain. Abd pain;Flank pain COMPARISON: Stone Protocol dated 04/29/2019; Chest For Pe Angio dated 12/06/2019 TECHNIQUE: Axial images were obtained without oral or IV contrast. Lack of contrast limits solid org an and vascular assessment. The [id number] spans the entirety of the system partially obscuring uppermost abdomen and lung bases. Coronal reformatted images were obtained and reviewed. All CT scans are performed using dose optimization technique as appropriate and may include automated exposure control or mA/KV adjustment according to patient size. FINDINGS: Mild ground-glass opacities are present in both lower lobes. Small stones are present in t he gallbladder. Small hiatal hernia is noted. Imaged portions of the liver and spleen show no suspicious findings on non-contrast imaging. Small no dules are present in both adrenal glands, likely adenomas. No pathologic lymphadenopathy in the abdom en or pelvis. Tiny punctate calculi are present in both kidneys without hydronephrosis. No bowel obstruction, free air, free fluid or abscess. Normal appendix noted.Sigmoid diverticulosis c shiela is present without diverticulitis. Moderate fecal retention throughout the colon. Mild lumbar degenerative changes. IMPRESSION: Punctate calculi in both kidneys without hydronephrosis evident. Cholelithiasis.
[2020-01-06] MEDS ORDERED: NA CHLORIDE 0.9% 1,000 ML ONE (21:34)
[2020-01-06 21:47] LABS: Absolute Lymphocytes (CBC) 0.5 K/uL (0.7-4.9); Basophils % 0.3 % (0-1.3); Hematocrit 34.2 % (39.6-49.0); Lymphocytes % 5.9 % (15.3-44.8); MPV 8.2 fL (7.6-11.3); RBC Red Blood Cell Count 3.91 M/uL (4.33-5.43)
[2020-01-06] MEDS ORDERED: MORPHINE 4 MG/ML SYR ONE (22:02)
[2020-01-06] MEDS ORDERED: ONDANSETRON 4 MG/2 ML VIAL ONE (22:02)
[2020-01-06] MEDS ORDERED: CEFTRIAXONE/SWI 1gm 1 GM/10 ML SYR ONE (22:19)
[2020-01-06 22:26] LABS: ALT/SGPT 11 U/L (12-78); AST/SGOT 25 U/L (15-37); Albumin 2.8 g/dL (3.4-5.0); Alkaline Phosphatase 65 U/L (45-117); BUN Blood Urea Nitrogen 22 mg/dL (7-18); Bicarbonate 21 mmol/L (21-32); Bilirubin Direct 0.3 mg/dL (0-0.2); Bilirubin Total 0.7 mg/dL (0.2-1.0); Glucose Level 140 mg/dL (74-106); Lipase 42 U/L (73-393); NT PRO-BNP 1628 pg/mL (<450); Potassium 4.6 mmol/L (3.5-5.1); Protein, Total 7.8 g/dL (6.4-8.2); Sodium Level 132 mmol/L (136-145)
[2020-01-06 22:27] LABS: Troponin (Emerg Dept Use Only) 2.94 ng/mL (0.0-0.045)
[2020-01-06 22:31] LABS: Urine Bacteria <20 /HPF (NONE SEEN); Urine Culture Reflex Order NOT NEEDED; Urine RBC <5 /HPF (NONE SEEN)
[2020-01-06 22:32] LABS: Urine Blood NEGATIVE (NEG); Urine Glucose TRACE (NEG); Urine Protein 2+ (NEG)
--- NOTE | 2020-01-07 00:08 | ER ---
Nurse's Notes [facility] Name: Stephon Baig Age: 84 yrs Sex: Male : 1935 Arrival Date: 01/06/2020 Time: 19:25 Bed 4 Private MD: Diagnosis: Non-ST elevation (NSTEMI) myocardial infarction;Unspecified combined systolic (congestive) and diastolic (congestive) heart failure;Urinary tract infection, site not specified;Low back pain;Type 2 diabetes mellitus;Essential (primary) hypertension Presentation: 01/05 19:36 Chief complaint: Patient states: nausea started yesterday, started new meds yesterday dm5 for UTI but not given antibiotics at that time. Pt states that there is pain under ribs, and in back, pain rated at 8/10 at this time. Pt has history of kidneys stones, pt also reports abdominal pain, denies vomiting. Coronavirus screen: Client denies travel out of the [place] in the last 14 days. chills, muscle pain, nausea, Client presents with at least one sign or symptom that may indicate coronavirus-19. Ebola Screen: Patient negative for fever greater than or equal to 101.5 degrees Fahrenheit, and additional compatible Ebola Virus Disease symptoms Patient denies exposure to infectious person. Patient denies travel to an Ebola-affected area in the 21 days before illness onset. No symptoms or risks identified at this time. Initial Sepsis Screen: Does the patient meet any 2 criteria? No. Patient's initial sepsis screen is negative. Does the patient have a suspected source of infection? No. Patient's initial sepsis screen is negative. Risk Assessment: Do you want to hurt yourself or someone else? Patient reports no desire to harm self or others. Onset of symptoms was January 04, 2020. 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 - Family history:: not pertinent. - Social history:: Smoking status: unknown. Screenin/23 23:46 Abuse screen: Denies threats or abuse. Denies injuries from another. Nutritional mg2 screening: No deficits noted. Tuberculosis screening: No symptoms or risk factors identified. Fall Risk IV access (20 points). Assessment: 21:00 General: Appears in no apparent distress. comfortable, Behavior is calm, cooperative. mg2 Pain: Complains of pain in right low back and right mid back. Neuro: Level of Consciousness is awake, alert, obeys commands, Oriented to person, place, time, situation. Cardiovascular: Capillary refill < 3 seconds Patient's skin is warm and dry. Respiratory: Airway is patent Respiratory effort is even, unlabored, Respiratory pattern is regular, symmetrical. GI: No signs and/or symptoms were reported involving the gastrointestinal system. : Urine is see urine dip. EENT: No signs and/or symptoms were reported regarding the EENT system. Derm: Skin is intact, is healthy with good turgor, Skin is pink, warm \T\ dry. normal. Musculoskeletal: Circulation, motion, and sensation intact. Capillary refill < 3 seconds. 23:47 Reassessment: patient in CT. mg2 01/06 00:55 Reassessment: Patient appears in no apparent distress at this time. Patient and/or mg2 family updated on plan of care and expected duration. Pain level reassessed. Patient is alert, oriented x 3, equal unlabored respirations, skin warm/dry/pink. seen by hospitalist advised for admission. 01:36 Reassessment: Patient appears in no apparent distress at this time. Patient and/or mg2 family updated on plan of care and expected duration. Pain level reassessed. Patient is alert, oriented x 3, equal unlabored respirations, skin warm/dry/pink. Vital Signs: 01/05 19:36 BP 137 / 91; Pulse 87; Resp 18; Temp 98.3; Pulse Ox 95% on R/A; Weight 73.94 kg; Height mg2 5 ft. 9 in. (175.26 cm); Pain 8/10; 01/06 00:10 Pulse 96; Resp 18; Pulse Ox 95% on R/A; mg2 00:54 BP 141 / 57; Pulse 95; Resp 18; Pulse Ox 97% on R/A; mg2 01:35 BP 141 / 38; Pulse 89; Resp 18; Pulse Ox 95% on R/A; mg2 03:00 BP 113 / 43; Pulse 75; Resp 18; Pulse Ox 95% on R/A; mg2 04:08 BP 124 / 36; Pulse 78; Resp 18; Pulse Ox 96% on R/A; mg2 01/05 19:36 Body Mass Index 24.07 (73.94 kg, 175.26 cm) mg2 ED Course: 01/05 19:25 Patient arrived in ED. bp1 19:41 Triage completed. dm5 19:42 Arm band placed on Patient placed in waiting room. dm5 20:21 CT Stone Protocol In Process Unspecified. EDMS 20:59 Edgardo Leo, ROMINA is Primary Nurse. mg2 21:13 Paulie Dunlap MD is Attending Physician. tonia 21:30 Inserted saline lock: 20 gauge in right forearm, using aseptic technique. Blood mg2 collected. 21:45 XRAY Chest (1 view) In Process Unspecified. EDMS 21:56 US Abdomen Limited In Process Unspecified. EDMS 23:24 Inserted saline lock: 20 gauge in right forearm, using aseptic technique. jb4 23:46 Patient has correct armband on for positive identification. laboratory monitor on. Pulse mg2 ox on. NIBP on. 23:46 No provider procedures requiring assistance completed. mg2 23:57 CT Aorta for Dissection In Process Unspecified. EDMS 01/06 00:05 Walter Brooks MD is Hospitalizing Provider. tonia 00:11 covid swab sent to lab. Patient admitted, IV remains in place. mg2 07:10 Report given to Christiano RN. mg2 Administered Medications: 01/05 21:41 Drug: NS 0.9% 1000 ml Route: IV; Rate: 1 bolus; Site: right forearm; mg2 01/06 01:33 Follow up: Response: No adverse reaction; IV Status: Completed infusion; IV Intake: mg2 1000ml 01/05 21:56 Drug: morphine 2 mg Route: IVP; Site: right forearm; mg2 21:56 Drug: Zofran (Ondansetron) 4 mg Route: IVP; Site: right forearm; mg2 01/06 01:32 Follow up: Response: No adverse reaction mg2 01/05 22:13 Drug: morphine 2 mg Route: IVP; Site: right forearm; mg2 01/06 01:33 Follow up: Response: No adverse reaction mg2 01/05 22:13 Drug: Rocephin 1 grams Route: IV; Rate: per protocol; Site: right forearm; mg2 01/06 01:32 Follow up: IV Status: Completed infusion mg2 00:35 Drug: Aspirin 162 mg Route: PO; mg2 01:32 Follow up: Response: No adverse reaction mg2 00:35 Drug: Lopressor 25 mg Route: PO; mg2 01:32 Follow up: Response: No adverse reaction mg2 00:38 Drug: Heparin (VA-Bolus No thrombolytic) - HEParin 60 units/kg {Co-Signature: [email or web address] mg2 (Memo Tate RN).} {Note: 4400 units.} Route: IVP; Site: right forearm; 01:32 Follow up: Response: No adverse reaction mg2 00:40 Drug: Heparin (VA Drip) 12 units/kg/hr - (HEParin 62968 units, D5W 500 ml) mg2 {Co-Signature: matthew (Memo Tate RN).} Route: IV; Rate: calculated rate; Site: right forearm; 04:09 Follow up: Response: No adverse reaction; IV Status: Infusion continued upon admission mg2 06:05 Follow up: Rate change 19.8 ml/hr mg2 06:03 Drug: HEParin 3000 units {Co-Signature: matthew (Memo Tate RN).} Route: IV; Rate: bolus; mg2 Site: right forearm; Intake: 01:33 IV: 1000ml; Total: 1000ml. mg2 Outcome: 00:07 Decision to Hospitalize by Provider. tonia 01:20 Admitted to ER Hold. Please see [facility] for further documentation. mg2 01:20 Condition: stable 12:12 Patient left the ED. tw2 Signatures: Dispatcher [employer] EDMS Lizzette Dee RN RN dmPaulie Zhu MD MD cha Wise, Tara RN RN tw2 Memo Tate, RN RN jb4 Edgardo Leo RN RN mg2 Kristy Moon RN jb4 Corrections: (The following items were deleted from the chart) 01/05 23:47 21:00 Inserted saline lock: 20 gauge in right forearm, using aseptic technique. Blood mg2 collected. mg2 01/06 00:51 01/05 19:36 BP 137 / 91; Pulse 87bpm; Resp 18bpm; Pulse Ox 95% RA; Temp 98.3F; 83.46 mg2 kg; Height 5 ft. 9 in.; BMI: 27.1; Pain 8/10; dm5
--- NOTE | 2020-01-07 00:08 | EDPHYS ---
Physician Documentation [facility] Name: Stephon Baig Age: 84 yrs Sex: Male : 1935 Arrival Date: 01/06/2020 Time: 19:25 Bed 4 Private MD: ED Physician Paulie Dunlap HPI: 01/05 21:26 This 84 yrs old Male presents to ER via Wheelchair with complaints of Back tonia Pain, Shaky. 21:26 The patient presents with pain that is acute, with no known mechanism of injury. The tonia symptoms are located in the right mid back and right low back. Onset: The symptoms/episode began/occurred 2 day(s) ago. The pain does not radiate. Associated signs and symptoms: The patient has no apparent associated signs or symptoms. The problem was sustained from unknown cause. Modifying factors: The patient symptoms are alleviated by nothing, the patient symptoms are aggravated by nothing. Severity of symptoms: At their worst the symptoms were moderate, in the emergency department the symptoms are unchanged. The patient has not experienced similar symptoms in the past. 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 - Family history:: not pertinent. - Social history:: Smoking status: unknown. ROS: 01/05 21:26 Constitutional: Negative for fever, chills, and weight loss, Eyes: Negative for injury, tonia pain, redness, and discharge, ENT: Negative for injury, pain, and discharge, Neck: Negative for injury, pain, and swelling, Cardiovascular: Negative for chest pain, palpitations, and edema, Respiratory: Negative for shortness of breath, cough, wheezing, and pleuritic chest pain, Abdomen/GI: Negative for abdominal pain, nausea, vomiting, diarrhea, and constipation, : Negative for injury, bleeding, discharge, and swelling, MS/Extremity: Negative for injury and deformity, Skin: Negative for injury, rash, and discoloration, Neuro: Negative for headache, weakness, numbness, tingling, and seizure, Psych: Negative for depression, anxiety, suicide ideation, homicidal ideation, and hallucinations, Allergy/Immunology: Negative for hives, rash, and allergies, Endocrine: Negative for neck swelling, polydipsia, polyuria, polyphagia, and marked weight changes, Hematologic/Lymphatic: Negative for swollen nodes, abnormal bleeding, and unusual bruising. Back: Positive for decreased range of motion, pain at rest, pain with movement, of the right subscapular area, right mid back and right low back. : Negative for urinary symptoms, urinary frequency, small amounts, hematuria, difficulty urinating, bladder incontinence, penile pain, testicular pain Exam: 21:26 Constitutional: This is a well developed, well nourished patient who is awake, alert, tonia and in no acute distress. Head/Face: Normocephalic, atraumatic. Eyes: Pupils equal round and reactive to light, extra-ocular motions intact. Lids and lashes normal. Conjunctiva and sclera are non-icteric and not injected. Cornea within normal limits. Periorbital areas with no swelling, redness, or edema. ENT: Nares patent. No nasal discharge, no septal abnormalities noted. Tympanic membranes are normal and external auditory canals are clear. Oropharynx with no redness, swelling, or masses, exudates, or evidence of obstruction, uvula midline. Mucous membranes moist. Neck: Trachea midline, no thyromegaly or masses palpated, and no cervical lymphadenopathy. Supple, full range of motion without nuchal rigidity, or vertebral point tenderness. No Meningismus. Chest/axilla: Normal chest wall appearance and motion. Nontender with no deformity. No lesions are appreciated. Cardiovascular: Regular rate and rhythm with a normal S1 and S2. No gallops, murmurs, or rubs. Normal PMI, no JVD. No pulse deficits. Respiratory: Lungs have equal breath sounds bilaterally, clear to auscultation and percussion. No rales, rhonchi or wheezes noted. No increased work of breathing, no retractions or nasal flaring. Abdomen/GI: Soft, non-tender, with normal bowel sounds. No distension or tympany. No guarding or rebound. No evidence of tenderness throughout. Male : Normal genitalia with no discharge or lesions. Skin: Warm, dry with normal turgor. Normal color with no rashes, no lesions, and no evidence of cellulitis. MS/ Extremity: Pulses equal, no cyanosis. Neurovascular intact. Full, normal range of motion. Neuro: Awake and alert, GCS 15, oriented to person, place, time, and situation. Cranial nerves II-XII grossly intact. Motor strength 5/5 in all extremities. Sensory grossly intact. Cerebellar exam normal. Normal gait. Psych: Awake, alert, with orientation to person, place and time. Behavior, mood, and affect are within normal limits. 21:26 Back: pain, that is mild, that is moderate, ROM is painful, with flexion, normal spinal alignment noted, CVA tenderness, that is mild, that is moderate, is noted on the right, vertebral tenderness, is not appreciated, muscle spasm, is not present. Vital Signs: 19:36 BP 137 / 91; Pulse 87; Resp 18; Temp 98.3; Pulse Ox 95% on R/A; Weight 73.94 kg; Height mg2 5 ft. 9 in. (175.26 cm); Pain 8/10; 01/06 00:10 Pulse 96; Resp 18; Pulse Ox 95% on R/A; mg2 00:54 BP 141 / 57; Pulse 95; Resp 18; Pulse Ox 97% on R/A; mg2 01:35 BP 141 / 38; Pulse 89; Resp 18; Pulse Ox 95% on R/A; mg2 03:00 BP 113 / 43; Pulse 75; Resp 18; Pulse Ox 95% on R/A; mg2 04:08 BP 124 / 36; Pulse 78; Resp 18; Pulse Ox 96% on R/A; mg2 01/05 19:36 Body Mass Index 24.07 (73.94 kg, 175.26 cm) mg2 MDM: 01/05 21:13 Patient medically screened. tonia 21:29 Differential diagnosis: Cholelithiasis chronic back pain, Fatigue Fracture Leaking tonia Aortic Aneurysm Neoplasm Osteoarthritis Peptic Ulcer Renal Infarction ruptured disc, sprain, Ureterolithiasis. Data reviewed: vital signs, nurses notes, lab test result(s), EKG, radiologic studies, CT scan, plain films. Data interpreted: school lunch monitor: rate is 87 beats/min, rhythm is regular, Pulse oximetry: is not applicable for this patient encounter. Test interpretation: by ED physician or midlevel provider: ECG, plain radiologic studies. Counseling: I had a detailed discussion with the patient and/or guardian regarding: the historical points, exam findings, and any diagnostic results supporting the discharge/admit diagnosis, lab results, radiology results. Medication response: morphine markedly relieved the patient's pain. Symptoms have improved, 01/05 21:16 Order name: CBC with Diff; Complete Time: 22:32 [facility] 01/05 21:25 Order name: Magnesium; Complete Time: :32 [facility] 01/05 21:25 Order name: NT PRO-BNP; Complete Time: 22:32 [facility] 01/05 21:25 Order name: PT-INR; Complete Time: 07: [facility] 01/05 21:25 Order name: Troponin (emerg Dept Use Only); Complete Time: 22:32 [facility] 01/05 21:45 Order name: Urine Microscopic Only; Complete Time: 22:32 [facility] 01/05 21:51 Order name: Urine Culture [facility] 01/05 21:52 Order name: Basic Metabolic Panel; Complete Time: 22:32 [facility] 01/05 21:52 Order name: Liver (Hepatic) Function; Complete Time: 22:32 [facility] 01/05 21:52 Order name: Lipase; Complete Time: 22:32 [facility] 01/05 22:21 Order name: Urine Dipstick--Ancillary (enter results); Complete Time: 23:28 2 01/05 23:40 Order name: COVID-19 [facility] 01/06 00:29 Order name: PTT, Activated Partial Thromb; Complete Time: 07: [facility] 01/06 00:51 Order name: SARS-COV-2 RT PCR; Complete Time: 07:01 [facility] 01/06 00:59 Order name: Comprehensive Metabolic Panel; Complete Time: 07:01 [facility] 01/06 00:59 Order name: Magnesium; Complete Time: 07:01 [facility] 01/06 00:59 Order name: Lipid Profile [facility] 01/06 00:59 Order name: Lipid Profile; Complete Time: 07:01 [facility] 01/06 00:59 Order name: Troponin I [facility] 01/06 01:00 Order name: CBC with Automated Diff; Complete Time: 07:01 [facility] 01/06 01:00 Order name: Protime (+INR); Complete Time: 07:01 [facility] 01/06 01:00 Order name: PTT, Activated Partial Thromb; Complete Time: 07:01 [facility] 01/06 01:00 Order name: Troponin I; Complete Time: 07:01 [facility] 01/06 01:00 Order name: Troponin I [facility] 01/06 01:00 Order name: Troponin I [facility] 01/06 01:00 Order name: Troponin I [facility] 01/05 19:42 Order name: CT Stone Protocol; Complete Time: 21:16 dm5 01/05 21:16 Order name: IV Saline Lock; Complete Time: 21:56 [facility] 01/05 21:16 Order name: Labs collected and sent; Complete Time: 21:57 [facility] 01/05 21:25 Order name: US Abdomen Limited [facility] 01/05 21:25 Order name: XRAY Chest (1 view) [facility] 01/05 21:25 Order name: EKG; Complete Time: 21:26 [facility] 01/05 21:25 Order name: Cardiac monitoring; Complete Time: 21:57 [facility] 01/05 21:25 Order name: EKG - Nurse/Tech; Complete Time: 22:57 [facility] 01/05 21:25 Order name: O2 Per Protocol; Complete Time: 21:56 [facility] 01/05 21:25 Order name: O2 Sat Monitoring; Complete Time: 21:56 [facility] 01/05 21:25 Order name: Urine Dipstick-Ancillary (obtain specimen); Complete Time: 21:55 [facility] 01/05 21:25 Order name: CT Aorta for Dissection [facility] 01/06 00:53 Order name: CONS Physician Consult [facility] 01/06 01:00 Order name: NPO [facility] 01/06 04:42 Order name: Ptt, Activated [facility] 01/06 05:19 Order name: PTT, Activated Partial Thromb; Complete Time: 07:01 [facility] Administered Medications: 21:41 Drug: NS 0.9% 1000 ml Route: IV; Rate: 1 bolus; Site: right forearm; mg2 01/06 01:33 Follow up: Response: No adverse reaction; IV Status: Completed infusion; IV Intake: mg2 1000ml 01/05 21:56 Drug: morphine 2 mg Route: IVP; Site: right forearm; mg2 21:56 Drug: Zofran (Ondansetron) 4 mg Route: IVP; Site: right forearm; mg2 01/06 01:32 Follow up: Response: No adverse reaction [facility] 01/05 22:13 Drug: morphine 2 mg Route: IVP; Site: right forearm; mg2 01/06 01:33 Follow up: Response: No adverse reaction mg2 01/05 22:13 Drug: Rocephin 1 grams Route: IV; Rate: per protocol; Site: right forearm; mg2 01/06 01:32 Follow up: IV Status: Completed infusion mg2 00:35 Drug: Aspirin 162 mg Route: PO; mg2 01:32 Follow up: Response: No adverse reaction mg2 00:35 Drug: Lopressor 25 mg Route: PO; mg2 01:32 Follow up: Response: No adverse reaction mg2 00:38 Drug: Heparin (PA-Bolus No thrombolytic) - HEParin 60 units/kg {Co-Signature: [email or web address] mg2 (Memo Tate RN).} {Note: 4400 units.} Route: IVP; Site: right forearm; 01:32 Follow up: Response: No adverse reaction mg2 00:40 Drug: Heparin (PA Drip) 12 units/kg/hr - (HEParin 55839 units, D5W 500 ml) mg2 {Co-Signature: [email or web address] (Memo Tate RN).} Route: IV; Rate: calculated rate; Site: right forearm; 04:09 Follow up: Response: No adverse reaction; IV Status: Infusion continued upon admission mg2 06:05 Follow up: Rate change 19.8 ml/hr mg2 06:03 Drug: HEParin 3000 units {Co-Signature: [email or web address] (Memo Tate RN).} Route: IV; Rate: bolus; mg2 Site: right forearm; Disposition: 01/07/20 00:07 Hospitalization ordered by Walter Brooks for Inpatient Admission. Preliminary diagnosis are Non-ST elevation (NSTEMI) myocardial infarction, Unspecified combined systolic (congestive) and diastolic (congestive) heart failure, Urinary tract infection, site not specified, Low back pain, Type 2 diabetes mellitus, Essential (primary) hypertension. - Bed requested for [facility] ER HOLD. - Status is Inpatient Admission. tw2 - Condition is Fair. - Problem is new. - Symptoms have improved. Signatures: Dispatcher [employer] Lizzette Hernandez, RN RN dm5 Paulie Dunlap MD MD cha Lasagna, Tonya RN RN tl1 Emily Hernandez RN RN tw2 Edgardo Leo RN RN mg2 Memo Tate RN jb4 Corrections: (The following items were deleted from the chart) 01/05 21:52 21:17 BASIC METABOLIC PANEL+C.LAB.BRZ ordered. [facility] 21:17 HEPATIC FUNCTION+C.LAB.BRZ ordered. [facility] 21:17 LIPASE+C.LAB.BRZ ordered. [facility] 01/06 00:40 00:07 Hospitalization Ordered by Walter Brooks MD for Inpatient Admission. Preliminary tonia diagnosis is Non-ST elevation (NSTEMI) myocardial infarction; Unspecified combined systolic (congestive) and diastolic (congestive) heart failure; Urinary tract infection, site not specified; Low back pain; Type 2 diabetes mellitus; Essential (primary) hypertension. Bed requested for Telemetry/MedSurg (Inpatient). Status is Inpatient Admission. Condition is Fair. Problem is new. Symptoms have improved. [facility] 00:51 01/05 23:41 CORONAVIRUS ordered. [facility] 01/06 01:09 00:40 01/07/2020 00:07 Hospitalization Ordered by Walter Brooks MD for Inpatient tl1 Admission. Preliminary diagnosis is Non-ST elevation (NSTEMI) myocardial infarction; Unspecified combined systolic (congestive) and diastolic (congestive) heart failure; Urinary tract infection, site not specified; Low back pain; Type 2 diabetes mellitus; Essential (primary) hypertension. Bed requested for Intensive Care Unit. Status is Inpatient Admission. Condition is Fair. Problem is new. Symptoms have improved. tonia 12:12 01:01/07/2020 00:07 Hospitalization Ordered by Walter Brooks MD for Inpatient tw2 Admission. Preliminary diagnosis is Non-ST elevation (NSTEMI) myocardial infarction; Unspecified combined systolic (congestive) and diastolic (congestive) heart failure; Urinary tract infection, site not specified; Low back pain; Type 2 diabetes mellitus; Essential (primary) hypertension. Bed requested for [facility] ER HOLD. Status is Inpatient Admission. Condition is Fair. Problem is new. Symptoms have improved. tl1
[2020-01-07 00:27] LABS: Protime INR 1.25
[2020-01-07] MEDS ORDERED: HEPARIN 5000 UNIT/ML 1 ML VIAL ONE ×4 (00:33→13:48)
[2020-01-07] MEDS ORDERED: ASPIRIN EC 81 MG TAB PO ONE (00:33)
[2020-01-07] MEDS ORDERED: HEPARIN/D5W 25,000 UNIT/500 ML BAG IV ONE (00:34)
[2020-01-07] MEDS ORDERED: METOPROLOL TAR 25 MG TAB ONE (00:34)
[2020-01-07] MEDS ORDERED: HEPARIN/D5W 25,000 UNIT/500 ML BAG IV SCH (01:00)
--- NOTE | 2020-01-07 01:09 | P.HP ---
Certification for Inpatient With expected LOS: >2 Midnights Patient will require the following post-hospital care: None Practitioner: I am a practitioner with admitting privileges, knowledge of patient current condition, hospital course, and medical plan of care. Services: Services provided to patient in accordance with Admission requirements found in Title 42 Section 412.3 of the Code of Federal Regulations <Ed Bowens - Last Filed: 01/07/20 01:03> Patient History Date of Service: 01/07/20 Reason for admission: NSTEMI/UTI History of Present Illness: A 3-year-old male with past medical history of coronary artery disease status post CABG 20 years ago and recent lithotripsy presents to the emergency room complaining of acute onset of back pain with no history of mechanical injury. States the pain is in his mid back and right lower back. Denies chest pain dyspnea on exertion but patient does admit to having chest pain with exertion for greater than 1 year. Patient states he usually has to stop and rest for a little bit before continuing. Emergency room patient is noted to have an elevated troponin of 2.94, a proBNP of 1628, a hemoglobin of 11.9, a hematocrit of 34.2 and a white blood cell count of 9.2. His UA is positive for nitrite. CT dissection was negative for acute pathology. Chest x-ray was negative for acute pathology and ultrasound of the abdomen showed some gallstones. CT abdomen pelvis shows punctate calculi in both kidneys with no hydronephrosis. Cardiology was consulted-Dr. Sy and plan is for patient to undergo cardiac catheterization tomorrow morning. Patient is alert and oriented x3. He is in no distress. Mildly uncomfortable due to right lower back pain. Pain is better controlled after IV pain medications. Patient admits to drinking 1-2 beers a night. Denies smoking and denies any illegal drug use. Patient received 1 dose of Rocephin in the ED. Patient is also on a heparin drip per Cardiology recommendations. Patient will be placed in ICU and further evaluated. Case discussed with Dr. Brooks. Home medications list reviewed: Yes - Past Medical/Surgical History Diabetic: No -: CABG -: History of Coronary artery disease -: Hyperlipidemia -: Lithotripsy Psychosocial/ Personal History: Lives at home with . - Family History Family History: Reviewed- Non-Contributory - Social History Smoking Status: Never smoker Alcohol use: Yes CD- Drugs: No Caffeine use: No Place of Residence: Home <Ed Bowens - Last Filed: 01/07/20 01:03> Date of Service: 01/07/20 <Walter Brooks - Last Filed: 01/08/20 09:12> Allergies No Known Allergies Allergy (Verified 07/28/14 16:00) Home Medications: Aspirin 81 mg PO DAILY 07/28/14 Naproxen Sodium [Aleve] 220 mg PO DAILY 07/28/14 Simvastatin [Zocor] 10 mg PO BEDTIME 07/28/14 Terazosin HCl [Hytrin*] 10 mg PO BEDTIME 07/28/14 Hydrocodone/Acetaminophen [Hydrocodon-Acetaminophn 10-325] 1 each PO Q8HP 01/07/20 Ketorolac Tromethamine 10 mg PO Q6H 01/07/20 Metformin HCl [Glucophage] 500 mg PO DAILY 01/07/20 Phenazopyrididine [Pyridium] 100 mg PO TID 01/07/20 Tizanidine [Zanaflex] 4 mg PO Q6HP PRN 01/07/20 Review of Systems General: As per HPI Eyes: Unremarkable ENT: Unremarkable Respiratory: Unremarkable Cardiovascular: As per HPI, Unremarkable Gastrointestinal: Unremarkable Genitourinary: Other (Right flank pain), As per HPI Musculoskeletal: Back Pain (Right middle and lower back pain) Integumentary: Unremarkable Neurological: Unremarkable Lymphatics: Unremarkable <Ed Bowens - Last Filed: 01/07/20 01:03> Physical Examination - Vital Signs Temperature: 98.3 F Blood Pressure: 137/91 Pulse: 87 Respirations: 18 Pulse Ox (%): 95 (RA) - Physical Exam General: Alert, In no apparent distress, Oriented x3, Other (Uncomfortable) HEENT: Atraumatic, Normocephalic, PERRLA Neck: Supple, No Thyromegaly, Other (Trachea midline) Respiratory: Clear to auscultation bilaterally, Normal air movement Cardiovascular: No edema, Normal pulses, Regular rate/rhythm Capillary refill: <2 Seconds Gastrointestinal: Normal bowel sounds, Soft and benign, Non-distended, Tenderness (Right flank) Musculoskeletal: No clubbing, No swelling, No contractures, No erythema Integumentary: No rashes, No breakdown, No significant lesion Neurological: Normal gait, Normal speech, Normal strength at 5/5 x4 extr, Normal tone - Studies Laboratory Data (last 24 hrs) 01/07/20 00:05: PT 14.7 H, INR 1.25, APTT 26.7 01/06/20 21:35: Sodium 132 L, Potassium 4.6, BUN 22 H, Creatinine 0.81, Glucose 140 H, Magnesium 2.0, Total Bilirubin 0.7, AST 25, ALT 11 L, Alkaline Phosphatase 65, Lipase 42 L 01/06/20 21:35: WBC 9.2, Hgb 11.9 L, Hct 34.2 L, Plt Count 204 01/06/20 21:35: Sodium Cancelled, Potassium Cancelled, BUN Cancelled, Creatinine Cancelled, Glucose Cancelled, Total Bilirubin Cancelled, AST Cancelled, ALT Cancelled, Alkaline Phosphatase Cancelled, Lipase Cancelled <Ed Bowens - Last Filed: 01/07/20 01:03> - Studies Microbiology Data (last 24 hrs): 01/06/20 21:45 Clean Catch Urine [place] Count - Final No growth. 01/06/20 21:45 Clean Catch Urine - Final No growth. <Walter Brooks - Last Filed: 01/08/20 09:12> Assessment and Plan - Plan Impression: NSTEMI with history of CABG 20 years ago: Urinary tract infection: Anemia of chronic disease: Hyperlipidemia: Alcohol abuse: Plan: NSTEMI with history of CABG 20 years ago: Patient noted to have an elevated troponin of 2.94 on admission. Denies chest pain. Patient does admit to having chest pain with exertion. States he can walk about 50-100 feet before having to stop due to chest pain. States he has had this for over a year. States he has not seen anyone for it. Will place patient on telemetry. Continue heparin drip. Cardiology consulted-. Patient scheduled for cardiac catheterization tomorrow morning. Monitor. Urinary tract infection: UA positive for nitrites. Will start patient on IV Rocephin. Urine culture pending. Anemia of chronic disease: Hemoglobin of 11.9 with a hematocrit of 34.2. Will monitor H&H. Hyperlipidemia: Will resume all medications once verified. Alcohol abuse: Admits to drinking 1-2 beers per night. Counseled. Discharge Plan: Home Plan to discharge in: Greater than 2 days - Advance Directives Does patient have a Living Will: No Does patient have a Durable POA for Healthcare: No - Code Status/Comfort Care Code Status Assessed: Yes Time Spent Managing Pts Care (In Minutes): 55 <Ed Bowens - Last Filed: 01/07/20 01:03> - Problems (Diagnosis) (1) Non-STEMI (non-ST elevated myocardial infarction) Current Visit: Yes Status: Acute (2) Chest pain Current Visit: Yes Status: Acute (3) Generalized weakness Current Visit: Yes Status: Acute (4) CAD (coronary artery disease) Current Visit: Yes Status: Acute (5) CAD (coronary artery disease) of artery bypass graft Current Visit: Yes Status: Acute <BrooksWalter - Last Filed: 01/08/20 09:12> Date of Service: 01/07/20 Agree with the above findings. Events noted. Patient going to cardiac catheterization. Subjective Date of Service: 01/07/20 Patient status post cardiac catheterization. Stents placed in the RCA proximally and distally. Angioplasty of the left circumflex. Patient romario dick is doing okay and stable for discharge home in the morning if he continues to do well on Plavix. Review of Systems 10-point ROS is otherwise unremarkable Physical Examination - Vital Signs Temperature: 98.3 F Blood Pressure: 159/70 Pulse: 84 Respirations: 16 Pulse Ox (%): 97 - Physical Exam General: Alert, In no apparent distress, Oriented x3 Respiratory: Clear to auscultation bilaterally, Normal air movement Cardiovascular: Regular rate/rhythm, Normal S1 S2, Systolic murmur Gastrointestinal: Normal bowel sounds, Soft and benign, Non-distended, No tenderness Musculoskeletal: No clubbing, No swelling, No tenderness Neurological: Sensation intact, Cranial nerves 3-12 intact - Studies Microbiology Data (last 24 hrs): 01/06/20 21:45 Clean Catch Urine [place] Count - Final No growth. 01/06/20 21:45 Clean Catch Urine - Final No growth. Medications List Reviewed: Yes Assessment & Plan - Problems (Diagnosis) (1) Non-STEMI (non-ST elevated myocardial infarction) Current Visit: Yes Status: Acute (2) Chest pain Current Visit: Yes Status: Acute (3) Generalized weakness Current Visit: Yes Status: Acute (4) CAD (coronary artery disease) Current Visit: Yes Status: Acute (5) CAD (coronary artery disease) of artery bypass graft Current Visit: Yes Status: Acute - Plan 1. Serial troponins and EKG 2. Appreciate Cardiology consultation 3. Out of bed and ambulate 4. Anti-platelet therapy, anti coagulation, beta-juno, statin, and O2 as needed; continue Plavix 5. IV morphine for pain 6. Nitro p.r.n. 7. Continue with home medications 8. GI and DVT prophylaxis Discharge Plan: Home Plan to discharge in: Greater than 2 days - Advance Directives Does patient have a Living Will: No Does patient have a Durable POA for Healthcare: No - Code Status/Comfort Care Code Status Assessed: Yes Code Status: Full Code Critical Care: No Time Spent Managing PTS Care (In Minutes): 35 <Walter Brooks - Last Filed: 01/08/20 09:12>
[2020-01-07 04:32] VITALS: BMI 24.0
[2020-01-07 05:47] LABS: Absolute Lymphocytes (CBC) 0.5 K/uL (0.7-4.9); Basophils % 0.3 % (0-1.3); Hematocrit 30.6 % (39.6-49.0); Lymphocytes % 5.7 % (15.3-44.8); MPV 8.2 fL (7.6-11.3); RBC Red Blood Cell Count 3.48 M/uL (4.33-5.43)
[2020-01-07 05:51] LABS: Protime INR 1.22
[2020-01-07 05:55] LABS: ALT/SGPT 11 U/L (12-78); AST/SGOT 22 U/L (15-37); Albumin 2.6 g/dL (3.4-5.0); Alkaline Phosphatase 58 U/L (45-117); BUN Blood Urea Nitrogen 19 mg/dL (7-18); Bicarbonate 23 mmol/L (21-32); Bilirubin Total 0.5 mg/dL (0.2-1.0); Glucose Level 140 mg/dL (74-106); HDL Cholesterol 30 mg/dL (40-60); LDL Cholesterol, Calculated 49 (<130); Magnesium 2.1 mg/dL (1.8-2.4); Potassium 4.3 mmol/L (3.5-5.1); Protein, Total 6.9 g/dL (6.4-8.2); Sodium Level 135 mmol/L (136-145)
[2020-01-07] MEDS ORDERED: PNEUMOCOCCAL VACCINE 0.5 ML IMVAC ONE (08:00)
--- NOTE | 2020-01-07 08:04 | RAD REPORT ---
EXAM DESCRIPTION: RAD - Chest Single View - 01/06/2020 9:44 pm CLINICAL HISTORY: DYSPNEA COMPARISON: April 2019 TECHNIQUE: AP portable chest image was obtained 01/06/2020 9:44 pm . FINDINGS: No focal consolidations seen. Interstitial markings are increased above the prominent base line. Heart size within normal limits for portable imaging and stable. Vasculature is mildly prominen t but stable. No measurable pleural effusion and no pneumothorax. No acute bony abnormality seen. No acute aortic findings suspected. IMPRESSION: Diffuse increased interstitial opacification, increased over an already prominent baseli ne. Interstitial edema or infiltrate suspected.
--- NOTE | 2020-01-07 08:06 | RAD REPORT ---
EXAM DESCRIPTION: US - Abdomen Exam Limited - 01/06/2020 9:56 pm CLINICAL HISTORY: ABD PAIN COMPARISON: [place] Protocol dated 01/06/2020 FINDINGS: Multiple variably sized mobile gallstones seen within the lumen. No measurable quantity of sludge. There is no wall thickening or pericholecystic fluid. No common duct stone or biliary tree dilatation identified. IMPRESSION: Multi stone cholelithiasis. No wall thickening or pericholecystic fluid. No duct stone or biliary tree dilatation.
--- NOTE | 2020-01-07 08:44 | EKG ---
Test Date: 2020-01-06 Test Time: 22:45:48 Mechanical Maintenance Technician: [place]ETT MEASUREMENT RESULTS: Intervals: Rate: 95 ME: 138 QRSD: 80 QT: 318 QTc: 399 [place]: P: 40 ME: 138 QRS: 8 T: 122 INTERPRETIVE STATEMENTS: Normal sinus rhythm with sinus arrhythmia ST & T wave abnormality, consider anterolateral ischemia Abnormal ECG Compared to ECG 12/06/2019 21:51:53 No significant changes Electronically Signed On 01-07-20 08:43:06 CDT by Manfred Sy
[2020-01-07] MEDS ORDERED: CEFTRIAXONE 1 GM/NS 50 ML 1 GM/50 ML BAG IV SCH (09:00)
--- NOTE | 2020-01-07 09:38 | CON ---
Date of Consultation: 01/07/2020 Reason For Consultation: Non-ST elevation myocardial infarction. History Of Present Illness: Mr. Baig is an 84-year-old white male, very healthy, has had a history of dyslipidemia and benign prostatic hypertrophy, has been followed up with Dr. Aden. Has a chronic h eart murmur, came in with back pain yesterday bilateral. Has been having chronic back pain in the [facility] for which he takes hydrocodone. Troponin was ordered today showing a level of 2.94 and I was cons ulted. His BNP was 1628. He had a normal creatinine. He denied shortness of breath, PND, orthopnea , pedal edema, palpitations, or syncope. Denies nausea, vomiting, or diaphoresis. Denied fever or c hills or cough. Past Medical History: Negative otherwise. Allergies: NONE. Review of Systems: Negative. Social History: Negative. Family History: Noncontributory. Medications: At home include aspirin, Zocor, Hytrin, and hydrocodone. Physical Examination: General: He is in no acute distress. Alert, oriented x3. Vital Signs: Stable. Afebrile. HEENT: Negative. Neck: Supple with no bruit, lymphadenopathy, JVD, or thyromegaly. Chest: Clear to auscultation and percussion. Cardiac: Revealed regular rhythm and rate with a 2/6 systolic ejection murmur at the right third int ercostal space that did not radiate. He had no S4 or gallops. Abdomen: Benign. Extremities: Revealed no clubbing, cyanosis, or edema. Diagnostic Data: As stated earlier. EKG is nonspecific. Impression And Plan: 1.Non-ST elevation myocardial infarction. 2.History of urinary tract infection. 3.Dyslipidemia. 4.Benign prostatic hypertrophy. 5.Chronic back pain. 6.Heart murmur consistent with aortic sclerosis or maybe mild aortic stenosis. I think an echocardiogram is reasonable down the road. For now, I think we need to do a left heart c atheterization to define his coronary anatomy. The patient understands the risk and the benefits of the procedure and he agreed to proceed. We will see what that shows before making further decisions. KARLA/NARESH Voice ID: [id number] Report ID: [id number]
[2020-01-07] MEDS ORDERED: MORPHINE 2 MG/ML SYR ONE (09:40)
--- NOTE | 2020-01-07 10:04 | RAD REPORT ---
EXAM DESCRIPTION: CT - Angio Aorta For Dissection - 01/07/2020 6:37 am CLINICAL HISTORY: The patient is 84 years old and is Male; PE;Dissection chest pain TECHNIQUE: Axial computed tomographic angiography images of the chest, abdomen and pelvis with intra venous contrast. Sagittal and coronal reformatted images were created and reviewed. This CT exam was performed using one or more of the following dose reduction techniques: automated exposure cont rol, adjustment of the mA and/or kV according to patient size, and/or use of iterative reconstruction technique. MIP reconstructed images were created and reviewed. COMPARISON: No relevant prior studies available. FINDINGS: VASCULATURE: AORTA: Atherosclerosis of the aorta is present. No aortic aneurysm. No dissection. PULMONARY ARTERIES: There are no obvious filling defects identified within the pulmonary arterie s to suggest pulmonary embolism. GREAT VESSELS OF AORTIC ARCH: No acute findings. No dissection. No arterial occlusion or sig nificant stenosis. CELIAC TRUNK AND MESENTERIC ARTERIES: No acute findings. No occlusion or significant stenosis. RENAL ARTERIES: No acute findings. No occlusion or significant stenosis. ILIAC ARTERIES: No acute findings. No occlusion or significant stenosis. CHEST: LUNGS: Minimal areas of linear atelectasis within the lingula and bilateral lower lobes is noted . The lungs are otherwise clear. PLEURAL SPACE: Unremarkable. No significant effusion. No pneumothorax. HEART: Unremarkable. No cardiomegaly. No significant pericardial effusion. MEDIASTINUM: The tracheobronchial tree is widely patent. ABDOMEN: LIVER: Unremarkable. No mass. GALLBLADDER AND BILE DUCTS: Several calcified gallstones are present within the gallbladder. The re is no ductal dilatation. PANCREAS: Unremarkable. No ductal dilation. No mass. SPLEEN: Unremarkable. No splenomegaly. ADRENALS: Bilateral adrenal gland nodules are present. The right adrenal gland nodules measures 1.5 cm and the left adrenal gland nodule measures 1.7 cm. KIDNEYS AND URETERS: Unremarkable. No hydronephrosis. No solid mass. STOMACH AND BOWEL: The stomach is decompressed. The small bowel is normal in caliber. Stool is p resent throughout colon. Scattered colonic diverticula are noted without surrounding inflammation. There is no mucosal thickening or evidence of bowel obstruction. PELVIS: APPENDIX: The appendix is normal in caliber without surrounding inflammation. BLADDER: The bladder is well distended. REPRODUCTIVE: Unremarkable as visualized. CHEST, ABDOMEN and PELVIS: INTRAPERITONEAL SPACE: Unremarkable. No significant fluid collection. No free air. BONES/JOINTS: Median sternotomy wires are present. Postsurgical change of the proximal left hu merus is noted. Multilevel degenerative change of the spine is present. No acute fracture. No d islocation. SOFT TISSUES: Unremarkable. LYMPH NODES: Unremarkable. No enlarged lymph nodes. IMPRESSION: 1. No evidence of aortic aneurysm or dissection. 2. No evidence of pulmonary embolism. 3. Cholelithiasis without CT evidence to suggest cholecystitis. Colonic diverticulosis. 4. Bilateral adrenal gland nodules. ACR White Paper guidelines (Wanda, et al. JACR 2010; 7(10): 754-73) suggest follow-up abdominal CT or MR in 12 months. Alternatively, if there is a history of malignancy, consider further evaluation with PET, unenhanced abdominal CT or MR. Electronically signed by: Melissa Hopper MD 01/07/2020 12:29 AM CDT Due to temporary technical issues with the PACS/Fluency reporting system, reports are being signed by the in house radiologist without review as a courtesy to ensure prompt reporting. The interpreting r adiologist is fully responsible for the content of the report.
[2020-01-07] MEDS ORDERED: ATROPINE SULF 1 MG/10 ML SYR IV ONE (11:45)
[2020-01-07] MEDS ORDERED: NITROGLYCERIN/D5W 0 MG/0 ML BTL IV ONE (11:45)
[2020-01-07] MEDS ORDERED: HEPA 1000U/500MLS 2,000 UNIT/1,000 ML BAG IV ONE (11:45)
[2020-01-07] MEDS ORDERED: NICARDIPINE HCL 25 MG/10 ML IV ONE (11:45)
[2020-01-07] MEDS ORDERED: HEPARIN 10,000 UNIT/10 ML VIAL IV ONE ×2 (11:45→14:01)
[2020-01-07] MEDS ORDERED: NITROGLYCERIN 100 MCG/ML SYR (for cath lab use only) IV ONE (11:45)
[2020-01-07] MEDS ORDERED: NA CHLORIDE 0.9% 500 ML ONE (12:22)
[2020-01-07] MEDS ORDERED: MIDAZOLAM HCL 2 MG/2 ML INJ ONE (12:32)
[2020-01-07] MEDS ORDERED: FENTANYL CITR 100 MCG/2 ML ONE ×2 (12:32→14:39)
[2020-01-07] MEDS ORDERED: TICAGRELOR 90 MG TABLET PO ONE (13:32)
[2020-01-07] MEDS ORDERED: HEPA 1000U/500MLS 1,000 UNIT/500 ML BAG IV ONE ×2 (13:35→14:10)
[2020-01-07] MEDS ORDERED: NACHLORIDE 0.45% 1,000 ML IV SCH (14:00)
[2020-01-07] MEDS: MORPHINE 2 MG/ML SYR IV PRN ×2 (16:31→20:52)
[2020-01-07] MEDS ORDERED: NITROGLYCERIN 0.4 MG/TAB SL PRN (16:56)
[2020-01-07] MEDS ORDERED: ACETAMINOPHEN 325 MG TABLET PO PRN (16:56)
--- NOTE | 2020-01-07 18:54 | OP ---
Date of Procedure: 01/07/2020 Surgeon: BERTIN IRELAND Procedures Performed: 1.Selective coronary angiogram. 2.Left heart catheterization. 3.PCI of severe distal RCA disease using 3.0 x 24 mm Synergy drug-eluting stent. 4.PCI of the mid RCA severe stenosis using 3.5 x 20 mm Synergy drug-eluting stent. 5.Balloon angioplasty of severe distal left circumflex stenosis, likely the culprit for the myocardi al infarction using 2.5 x 50 mm NC balloon. Indication For The Procedure: Non-ST elevation myocardial infarction. Access: Right femoral artery 6-Kazakh, closed with 6-Kazakh Angio-Seal. Total Sedation Time: 65 minutes. Description Of Procedure: After risks, benefits, and alternatives were explained to the patient, he agreed to the procedure and signed informed consent. The patient was brought into the cardiac cathet erization laboratory, prepped and draped in usual sterile fashion. Then, we accessed right femoral a rtery using ultrasound guidance and fluoroscopy and then using the micropuncture kit, then we inserte d a 6-Kazakh Tutor Key sheath. Subsequently, we took a 6-[place] JL4 catheter into the aortic root ove r the J-wire, engaged left main and obtained standard views. We took a 6-[place] JR4 catheter, engage d the right coronary artery, took standard views and then engaged the SVG graft to the LAD and took s tandard views. Then, we took the 6-Kazakh MALISSA catheter into the left subclavian artery, engaged the RESTREPO, and the RESTREPO was free and was not attached . Then, we proceed to the intervention de tails. Intervention Details: We gave systemic heparin to assure ACT level above 250 throughout the procedur e and we took a 6-[place]az[place] JR4 guide into the aortic root, engaged the right coronary artery and took a Runthrough wire and crossed both lesions of the RCA. The mid and distal pre-dilated with a 3.0 ball oon and then stented the distal using a 3.0 x 24 mm Synergy drug-eluting stent leaving behind 0% resi dual stenosis. Residual stenosis was 80% to 90% in 2 different locations and the length of the lesio n was 18 mm and the JUDY-3 flow before and after procedure. Then, we moved to treat the proximal les ion, dilated with a 3.0 x 50 mm balloon and then brought 3.5 x 20 mm Synergy drug-eluting stent overl apping with the proximal stent and then the proximal lesion length was 12 mm and the JUDY-3 flow befo re and after procedure and 0% residual stenosis. Then, we moved to treat the left circumflex disease by taking 6-[place] JL4 guide, engaged the left main coronary artery, took the Runthrough wire across the stenosis of the distal left circumflex and then we used 2.5 x 50 mm NC balloon and did angioplas ty with 0% residual stenosis. The length of the lesion was 12 mm and JUDY-3 flow before and after, a nd the degree of stenosis was 99% before PCI and 0% post-balloon angioplasty. Findings: 1.Left main is large with 20% proximal LAD, totally occluded proximally with patent SVG graft to the LAD and left circumflex was osteal 20% to 30% stenosis, mid 10% stenosis and distal 99%, which is cu lprit of the HI, status post angioplasty successful as above. An OM branch was moderate size with lisa quynh irregularities. 2.There is a ramus intermedius artery that is moderate in size and was ostial 80%. 3.RCA. Patent proximal stent and then mid 90% stenosis, status post successful PCI as above. Dista l LAD 90% stenosis, status post successful PCI as above. 4.Patent SVG graft to the mid LAD. 5.RESTREPO was not attached to any coronary artery and its small artery. Complications: None. Bleeding: Less than 50 mL. Postoperative Diagnoses: 1.Severe multivessel coronary artery disease as above, status post successful PCI of the RCA and the left circumflex. 2.Loaded with 180 mg of Brilinta. Continue 90 q.12 hours along with aspirin 81 mg daily and continu e high-dose statin. 3.Staged PCI of the proximal ramus intermedius and possible stent placement of the distal left circu yolandalex. SR/MODL Voice ID: [id number] Report ID: [id number]
[2020-01-07] MEDS ORDERED: D5W 1,000 ML with NA BICARB 8.4% 50 MEQ IV SCH ×4 (20:00)
[2020-01-07] MEDS: TICAGRELOR 90 MG TABLET PO SCH (20:52)
[2020-01-07] MEDS ORDERED: ATORVASTATIN 10 MG TAB PO SCH (21:00)
[2020-01-07] MEDS ORDERED: D5W 1,000 ML IV ONE ×2 (21:48→23:48)
[2020-01-07] MEDS ORDERED: SODIUM BICARB 50 MEQ/50ML VIAL ONE (21:48)
[2020-01-07] MEDS ORDERED: CEFTRIAXONE/SWI 1gm 1 GM/10 ML SYR IV SCH (22:00)
[2020-01-08] MEDS: MORPHINE 2 MG/ML SYR IV PRN ×2 (01:18→05:47)
[2020-01-08 03:14] VITALS: O2SAT 97
[2020-01-08 06:33] LABS: Absolute Lymphocytes (CBC) 0.5 K/uL (0.7-4.9); Basophils % 0.3 % (0-1.3); Hematocrit 29.8 % (39.6-49.0); Lymphocytes % 6.8 % (15.3-44.8); MPV 7.9 fL (7.6-11.3); RBC Red Blood Cell Count 3.42 M/uL (4.33-5.43)
[2020-01-08 06:51] LABS: ALT/SGPT 17 U/L (12-78); AST/SGOT 36 U/L (15-37); Albumin 2.4 g/dL (3.4-5.0); Alkaline Phosphatase 58 U/L (45-117); BUN Blood Urea Nitrogen 10 mg/dL (7-18); Bicarbonate 24 mmol/L (21-32); Bilirubin Direct 0.2 mg/dL (0-0.2); Bilirubin Total 0.6 mg/dL (0.2-1.0); Glucose Level 143 mg/dL (74-106); Lipase 51 U/L (73-393); Potassium 3.9 mmol/L (3.5-5.1); Protein, Total 6.7 g/dL (6.4-8.2); Sodium Level 135 mmol/L (136-145)
[2020-01-08] MEDS ORDERED: POTASSIUM CL SA 10 MEQ TAB PO ONE (09:00)
[2020-01-08] MEDS ORDERED: ASPIRIN EC 81 MG TAB PO SCH (09:00)
[2020-01-08] MEDS: TICAGRELOR 90 MG TABLET PO SCH (09:07)
--- NOTE | 2020-01-08 09:11 | P.PN ---
Subjective Date of Service: 01/07/20 Patient status post cardiac catheterization. Stents placed in the RCA proximally and distally. Angioplasty of the left circumflex. Patient clinically is doing okay and stable for discharge home in the morning if he continues to do well on Plavix. Review of Systems 10-point ROS is otherwise unremarkable Physical Examination - Vital Signs Temperature: 98.3 F Blood Pressure: 159/70 Pulse: 84 Respirations: 16 Pulse Ox (%): 97 - Physical Exam General: Alert, In no apparent distress, Oriented x3 Respiratory: Clear to auscultation bilaterally, Normal air movement Cardiovascular: Regular rate/rhythm, Normal S1 S2, Systolic murmur Gastrointestinal: Normal bowel sounds, Soft and benign, Non-distended, No tenderness Musculoskeletal: No clubbing, No swelling, No tenderness Neurological: Sensation intact, Cranial nerves 3-12 intact - Studies Microbiology Data (last 24 hrs): 01/06/20 21:45 Clean Catch Urine [place] Count - Final No growth. 01/06/20 21:45 Clean Catch Urine - Final No growth. Medications List Reviewed: Yes Assessment & Plan - Problems (Diagnosis) (1) Non-STEMI (non-ST elevated myocardial infarction) Current Visit: Yes Status: Acute (2) Chest pain Current Visit: Yes Status: Acute (3) Generalized weakness Current Visit: Yes Status: Acute (4) CAD (coronary artery disease) Current Visit: Yes Status: Acute (5) CAD (coronary artery disease) of artery bypass graft Current Visit: Yes Status: Acute - Plan 1. Serial troponins and EKG 2. Appreciate Cardiology consultation 3. Out of bed and ambulate 4. Anti-platelet therapy, anti coagulation, beta-juno, statin, and O2 as needed; continue Plavix 5. IV morphine for pain 6. Nitro p.r.n. 7. Continue with home medications 8. GI and DVT prophylaxis Discharge Plan: Home Plan to discharge in: Greater than 2 days - Advance Directives Does patient have a Living Will: No Does patient have a Durable POA for Healthcare: No - Code Status/Comfort Care Code Status Assessed: Yes Code Status: Full Code Critical Care: No Time Spent Managing PTS Care (In Minutes): 35
--- NOTE | 2020-01-08 09:17 | P.DS ---
Discharge Date: 01/08/20 Disposition: ROUTINE DISCHARGE Discharge Condition: GOOD Reason for Admission: NSTEMI/UTI Consultations: CARDIOLOGY - Problems (1) Non-STEMI (non-ST elevated myocardial infarction) Current Visit: Yes Status: Acute (2) Chest pain Current Visit: Yes Status: Acute (3) Generalized weakness Current Visit: Yes Status: Acute (4) CAD (coronary artery disease) Current Visit: Yes Status: Acute (5) CAD (coronary artery disease) of artery bypass graft Current Visit: Yes Status: Acute Brief History of Present Illness: PATIENT IS AN 84-YEAR-OLD GENTLEMAN WHO CAME TO THE HOSPITAL WITH CHEST PAIN. PATIENT WAS FOUND HAVE ELEVATED TROPONINS. PATIENT WAS STARTED ON ANTI-PLATELET AND ANTICOAGULATION AND TAKEN TO THE CARDIAC CATHETERIZATION LAB FOR STENT PLACEMENT. Hospital Course: PATIENT WAS FOUND HAVE SIGNIFICANT ATHEROSCLEROTIC DISEASE PER CARDIAC CATHETERIZATION. PATIENT HAD A STENT PLACED PROXIMALLY AND DISTALLY IN THE RCA. PATIENT ALSO HAD ANGIOPLASTY OF THE LEFT CIRCUMFLEX. CLINICALLY, PATIENT IS DOING WELL AND STABLE FOR DISCHARGE TODAY. HE IS A LITTLE WEAK AND WORKED IN GET PHYSICAL THERAPY TO WORK WITH HIM PRIOR TO DISCHARGE. WILL ARRANGE FOR HOME HEALTH WITH PHYSICAL THERAPY AND PATIENT WILL NEED OUTPATIENT CARDIOLOGY FOLLOWUP. CONTINUE PLAVIX FOR 1 YEAR. Vital Signs/Physical Exam: Temp Pulse Resp BP Pulse Ox 98.3 F 84 16 159/70 H 97 01/08/20 09:11 01/08/20 09:11 01/08/20 09:11 01/08/20 09:11 01/08/20 09:11 General: Alert, In no apparent distress, Oriented x3 Laboratory Data at Discharge: WBC 7.1 K/uL (4.3-10.9) D 01/08/20 06:12 Hgb 10.5 g/dL (13.6-17.9) L 01/08/20 06:12 Hct 29.8 % (39.6-49.0) L 01/08/20 06:12 Plt Count 240 K/uL (152-406) 01/08/20 06:12 PT 14.3 SECONDS (9.5-12.5) H 01/07/20 05:22 INR 1.22 01/07/20 05:22 APTT 32.0 SECONDS (24.3-36.9) 01/07/20 05:22 Sodium 135 mmol/L (136-145) L 01/08/20 06:12 Potassium 3.9 mmol/L (3.5-5.1) 01/08/20 06:12 BUN 10 mg/dL (7-18) 01/08/20 06:12 Creatinine 0.57 mg/dL (0.55-1.3) 01/08/20 06:12 Glucose 143 mg/dL (74-106) H 01/08/20 06:12 Magnesium 2.1 mg/dL (1.8-2.4) 01/07/20 05:22 Total Bilirubin 0.6 mg/dL (0.2-1.0) 01/08/20 06:12 AST 36 U/L (15-37) 01/08/20 06:12 ALT 17 U/L (12-78) 01/08/20 06:12 Alkaline Phosphatase 58 U/L (45-117) 01/08/20 06:12 Troponin I 2.17 ng/mL (0.0-0.045) H* 01/07/20 23:43 Triglycerides 104 mg/dL (<150) 01/07/20 05:22 Cholesterol 100 mg/dL (<200) 01/07/20 05:22 HDL Cholesterol 30 mg/dL (40-60) L 01/07/20 05:22 Cholesterol/HDL Ratio 3.33 01/07/20 05:22 Lipase 51 U/L (73-393) L 01/08/20 06:12 Home Medications: Aspirin 81 mg PO DAILY 07/28/14 Simvastatin [Zocor*] 10 mg PO BEDTIME 07/28/14 Terazosin HCl [Hytrin*] 10 mg PO BEDTIME 07/28/14 Hydrocodone/Acetaminophen [Hydrocodone-Acetamin 10-325 mg] 1 each PO Q8HP 01/07/20 Metformin HCl [Glucophage*] 500 mg PO DAILY 01/07/20 Phenazopyrididine [Pyridium*] 100 mg PO TID 01/07/20 Tizanidine [Zanaflex*] 4 mg PO Q6HP PRN 01/07/20 Aspirin [Aspirin EC 81 MG] 81 mg PO DAILY #30 tablet. 01/08/20 Clopidogrel Bisulfate [Plavix] 75 mg PO DAILY #30 tablet 01/08/20 New Medications: Aspirin [Aspirin EC 81 MG] 81 mg PO DAILY #30 tablet. Clopidogrel Bisulfate [Plavix] 75 mg PO DAILY #30 tablet Patient Discharge Instructions: OK TO DC IV AND DC HOME. FOLLOW-UP WITH PRIMARY CARE PROVIDER IN 1-2 WEEKS. FOLLOW-UP WITH CARDIOLOGY IN 1-2 WEEKS. PLEASE ARRANGE FOR HOME HEALTH WITH PHYSICAL THERAPY AT DISCHARGE. RETURN TO THE ER IF symptoms worsen. CALL or TEXT DR. REYES AT [phone] IF ANY QUESTIONS REGARDING HOSPITAL STAY. PLEASE CALL THE FLOOR AT [phone] IF ANY MEDICATION OR NURSING QUESTIONS. Diet: AHA Activity: Fall precautions Time spent managing pt's care (in minutes): 35
[2020-01-08] MEDS ORDERED: dexAMETHasone 4 MG/ML VIAL IV ONE ×2 (09:53→15:00)
--- NOTE | 2020-01-08 12:12 | RAD REPORT ---
EXAM DESCRIPTION: CT - Abdomen Pelvis W Contrast - 01/08/2020 8:28 am CLINICAL HISTORY: Abdominal pain COMPARISON: 2015 TECHNIQUE: Computed axial tomography of the abdomen pelvis was obtained. 100 cc Isovue-300 was admin istered intravenously. Oral contrast was not requested which limits evaluation of bowel. All CT scans are performed using dose optimization technique as appropriate and may include automated exposure control or mA/KV adjustment according to patient size. FINDINGS: Cholelithiasis without gallbladder wall thickening. Small hiatal hernia Liver, spleen, pancreas are unremarkable Punctate renal calculi without hydronephrosis. Partial duplication left pyelocaliceal structures. Diverticula stem from the colon without diverticulitis. Normal appendix Prostate gland is mildly enlarged. Seminal vesicles appear unremarkable. A defect involves the subcutaneous tissues of the right groin. 1.8 centimeter heterogeneous structur e is present within the region of the right common femoral artery. Small umbilical hernias contain fat. Spondylosis involves lumbar spine resulting in spinal stenosis IMPRESSION: Cholelithiasis without cholecystitis Defect within the anterior subcutaneous tissues right groin presumably secondary to recent catheteriz ation. 1.8 centimeter heterogeneous structure within the region of the right common femoral artery. This is incompletely evaluated on this exam. This could represent a small hematoma or pseudoaneurysm. Further evaluation with vascular ultrasound may be helpful
[2020-01-08 13:50] VITALS: BP 142/62; TEMP 97.6
[2020-01-09] MEDS ORDERED: LIDOCAINE 4% PATCH TOP SCH (09:00)
--- NOTE | 2020-01-09 12:26 | EKG ---
Test Date: 2020-01-08 Test Time: 10:18:25 Rotor Casting Machine Setup Operator: AMEE MEASUREMENT RESULTS: Intervals: Rate: 85 MT: 146 QRSD: 78 QT: 318 QTc: 378 [place]: P: 43 MT: 146 QRS: 0 T: 64 INTERPRETIVE STATEMENTS: Sinus rhythm with marked sinus arrhythmia ST & T wave abnormality, consider anterior ischemia Abnormal ECG Compared to ECG 01/06/2020 22:45:48 No significant changes Electronically Signed On 01-09-20 12:24:36 CDT by Manfred Sy
--- NOTE | 2020-01-09 21:13 | PN ---
Date of Progress Note: 01/08/2020 Subjective: Mr. Baig is a patient, who is 84-year-old, came in with a non-ST elevation myocardial inf arction on 01/06/2020. He had a catheterization done by Dr. Oakes on 01/07/2020 and underwent inter vention in his RCA and circumflex. Overnight, he denied any chest pain, shortness of breath, PND, or thopnea, pedal edema, palpitation, or syncope. Objective: Vital Signs: Stable. He was afebrile. He was in a sinus rhythm. : His right groin site was intact without any hematoma. Extremities: Legs showed no edema and his pulses were present bilaterally. Impression And Plan: The patient with history of coronary artery bypass, is followed by Dr. Aden no rmally, had come in with an GA, underwent a catheterization, stent of the [place] vessel by Dr. Oakes , doing well. He should go home on his home medication, which are appropriate and do include statin, aspirin, and antihypertensive medication. I will give him a prescription for Plavix 75 mg daily. H e can continue that along with his other medicine and he should follow up with Dr. Aden in the next 2 to 4 weeks. KARLA/NARESH Voice ID: [id number] Report ID: [id number]
== END 2020-01-08 17:37 | disposition home or self-care (01) | DRG 247 ==
LOC: ER 19:23 → ERHOLD 01-07 01:05 → 4TH 01-07 15:12
PROVIDERS: ADMIT Hospitalist; ATTEND Hospitalist
PROC: 30233N1 Transfusion of Nonautologous Red Blood Cells into Peripheral Vein, Percutaneous Approach (ICD-10-PCS; 2020-01-06)
PROC: 027035Z Dilation of Coronary Artery, One Artery with Two Drug-eluting Intraluminal Devices, Percutaneous Approach (ICD-10-PCS; principal; 2020-01-07)
PROC: 4A023N7 Measurement of Cardiac Sampling and Pressure, Left Heart, Percutaneous Approach (ICD-10-PCS; 2020-01-07)
PROC: B2111ZZ Fluoroscopy of Multiple Coronary Arteries using Low Osmolar Contrast (ICD-10-PCS; 2020-01-07)
DX: I21.4 Non-ST elevation (NSTEMI) myocardial infarction (principal); N39.0 Urinary tract infection, site not specified; E78.5 Hyperlipidemia, unspecified; G89.29 Other chronic pain; M54.9 Dorsalgia, unspecified; N40.0 Benign prostatic hyperplasia without lower urinary tract symptoms; I35.8 Other nonrheumatic aortic valve disorders; R01.1 Cardiac murmur, unspecified; I25.10 Atherosclerotic heart disease of native coronary artery without angina pectoris; D63.8 Anemia in other chronic diseases classified elsewhere; F10.10 Alcohol abuse, uncomplicated; R53.1 Weakness; Z79.82 Long term (current) use of aspirin; Z79.899 Other long term (current) drug therapy; Z79.891 Long term (current) use of opiate analgesic; Z79.84 Long term (current) use of oral hypoglycemic drugs; Z95.1 Presence of aortocoronary bypass graft; Z95.2 Presence of prosthetic heart valve; Z20.828 Contact with and (suspected) exposure to other viral communicable diseases
CPT/HCPCS: 36415; 71045; 71275; 74175; 74176; 74177; 76377; 76705; 80048; 80053; 80061; 80076; 81003; 81015; 83690; 83735; 83880; 84484; 85025; 85347; 85610; 85730; 87086; 87088; 92920; 93005; 93459; 96361; 96365; 96366; 96375; 97116; 97161; 97530; 99285; C1725; C1760; C1887; C1893; C9600; J0696; J1644; J2250; J2270; J2405; J3010; J7030; J7040; Q9967; U0003

== ENCOUNTER 2020-02-01 15:26 | Emergency (ER) | payer OTHER, BC ==
--- OUTSIDE RECORDS SUMMARY | 2020-02-01 15:28 | XMS REPORT | Clinical Summary ---
:1935 Author Organization [facility] Address [address] [place] [address] Care Team Providers Name Role Phone Roge [...] Anemia 04/02/2018 Coronary artery disease involving lower [place]a coronary elisabet ry 04/02/2018 Essential hypertension 04/02/2018 Type 2 diabetes mellitus 04/02/2018 Pure hypercholesterolemia 04/02/2018 Acute blood loss anemia 04/02/2018 Overview: Added automatically from request for edith agueda [id number] Carotid stenosis, right 04/25/2017 Post-operative pain 04/25/2017 Surgical History Surgery Date Site/Laterality Comments CARDIAC SURGERY VALVE REPLACEMENT CORONARY ARTERY BYPASS GRAFT CARDIAC VALVE REPLACEMENT ENDARTERECTOMY, CAROTID Neck/Right Procedur e: RIGHT CAROTID 8 ENDARTERECTOMY; Surgeon: Royer Marina MD; Location: [facility]; Service: Cardiot horacic; Laterality: Righ t; Medical devices from this surgery are in t he Implants section. ESOPHAGOGASTRODUODENOSCOPY 04/04/20 N/A Proce dure: (EGD) 18 ESOPHAGOGASTRODU ODENOSCOPY (EGD) w/ ablatio n for control of bleeding and biopsies; Surgeon: Haven Armijo MD; Location: [facility]; Service: Gastroe nterology; Laterality: N/A; APC Medical History Medical History Date Comments Diabetes mellitus (HCC) Hypertension Hyperlipidemia Coronary artery disease Family History Medical History Relation Name Comments [...] Health Maintenance Due Date Last Done Comments DIABETES: RETINAL EYE EXAM 1936 DIABETIC FOOT EXAM 1946 URINE MICROALBUMIN 1946 SHINGLES VACCINES (#1) 1986 65+ PNEUMOCOCCAL VACCINE (1 of 1 - PPSV23) 2001 INFLUENZA VACCINE 11/14/2019 Implants Implanted Type Area Director Of Music Device Shelf Model / Identifier Expiration Serial / Lot Date Device Vasclr Clsr Vasoactive Intstnl Peptd 6fr Angio- Seal - [id number] Cardiovascular N/A: 12/13/2018 [id number] / Implanted: 02/04/[address] [facility] (Quantity not on file) Implants N/A / [id number] Stent Crtd Xact Slf-Xpndbl Tprd Oleg 6-8x40mm - [id number] Periph eral or N/A: NIEVES 09/12/2020 [id number] / Implanted: 02/04/[address] [facility] (Quantity not on file) Zach iary Stents N/A VASCULAR / DEVICES [id number] Kit Shunt Crtd Artery Rdopq Line 6in Strl Acme - [id number] Edith gical N/A: COVIDIEN 08/20/2021 [id number] / Implanted: 04/25/[address] [facility] (Quantity not on file) Imp lants; N/A YIMI / Expanders; HEALTHCARE [id number] Extenders; Surgical Wires Catheter Thrmbtmy Neuron Max 088 Str 6fr 80x4cm - [id number] Edith gical N/A: [employer] [id number] / Implanted: 02/04/[address] [facility] (Quantity not on file) Implants; N/A / Expanders; Extenders; Surgical Wires Fabric Tezr Socorro Ricardo 3in 3in 0.8cm 7.6cm Brad Francisco shield - [id number] Vascular Graft N/A: [employer] 04/14/2021 [id number] / Implanted: 04/25/[address] [facility] (Quantity not on file) N/A RUBEN / [id number] Results Not on fileafter 01/31/2019 Insurance Payer Benefit Plan / Subscriber ID Effective Dates Phone Addre ss Type Group MEDICARE MEDICARE PART A [id number] 2001-Present [place], [place] Medicare AND B BCBS BCBS PAR/TRAD [id number] 2013-Present Indemnity PLAN Advance Directives For more information, please contact: [phone] Type Date Recorded Patient Dean For Student Affairs Explanati on Advance Directives, Living 04/02/2018 12:40 PM Will and Medical Power of Hat Brusher Machine Code Status Date Activated Date Inactivated Comments Full Code 04/02/2018 4:13 PM 04/04/2018 11:28 PM Code Status decision reached by: Patient Full Code 04/02/2018 3:58 PM 04/02/2018 4:13 PM Code Status decision reached by: Patient
--- OUTSIDE RECORDS SUMMARY | 2020-02-01 15:29 | XMS REPORT | Continuity of Care Document ---
:1935 Author Organization [facility] Care Team Providers Name Role Phone [facility] Unavailable Un available Problems Problem Status Onset [...] # solution 4,000 mL, 0 Refill(s), Pharmacy: [facility] [place], this is the generic of Golytely being used as a bowel prep, not Miralax simvastatin 40 40 mg = 1 Active MH mg oral tablet tab, PO, 019 Medical Bedtime, # Group 90 tab, 1 Refill(s) Acetaminophen 1 tab, PO, Active MH 325 MG / Q6H, 0 019 Medical Hydrocodone Refill(s) Group Bitartrate 10 MG Oral Tablet [[place] 10/325] finasteride 5 mg 5 mg = [...] Number For Provider Date Date Visit Outpatient [id number] Aj 11/10 [facility] Outpatient [id number] Aj 11/10 11/11 Gastroenter Ruiz /2018 Med ical ology Group [place] Outpatient [id number] 11/11 Act randall [facility] Jules n , [facility] Outpatient [id number] 11/11 11/12 Internal /2018 Medical Medicine Group [place] [facility] Outside [id number] 11/24 11/26 Gastroenter Medical /2018 Medi sparkle ology Records Group [place] Procedures Procedure Code Date Perfomer Comments Source Colonoscopy [id number] 11/20/2018 Medical Group Cataract surgery [id number] Medic al Group Heart valvuloplasty [id number] Me dical Group Hiatus hernia [id number] Medical repair Group Open heart surgery [id number] Med ical Group Repair of heart [id number] Medica l valve Group Assessment and Plan [...]
--- OUTSIDE RECORDS SUMMARY | 2020-02-01 15:29 | XMS REPORT | Continuity of Care Document ---
:[address] [facility] t Address [address] [place] [address] Care Team Providers Name Role Phone Roge [...] duodenum duodenum Anemia Anemia Disease Active 2017-04 Energy 06-03 Methodi 00:00: st 00 Coronary Coronary Disease Active 2017-04 [place] artery artery 2-19 Methodi disease disease 00:00: st involving involving 00 [place] coronary coronary artery artery Essential Essential Disease Active 2017-04 Simone ston hypertensi hypertensi 2-19 Me thodi on on 00:00: st 00 Type 2 Type 2 Disease Active 2017-04 Energy diabetes diabetes 2-19 Method i mellitus mellitus 00:00: st 00 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 Energy hyperchole hyperchole 2-19 Me thodi sterolemia sterolemia 00:00: st 00 Acute Acute Disease Active 2017-04 Overview: Courtneyto n blood loss blood loss 2-19 Added Me thodi anemia anemia 00:00: automatic st 00 ally from request for surgery [id number] Carotid Carotid Disease Active Energy stenosis, stenosis, 1-11 Meth maira right right 00:00: st 00 Post-opera Post-opera Disease Active [place] tive pain tive pain 1-11 Meth maira 00:00: st 00 Hyperchole Problem Active 2018-11-28 M emoria sterolemia 00:44:14 l (disorder) Jules n Hyperchole sterolemia (disorder) Active Problem 11/28/2018 Medical Group Hypertensi Problem Active 2018-11-28 M emoria ve 00:44:14 l disorder, Saurav systemic Hypertensi arterial ve (disorder) disorder, systemic [...] Stop Date Source Natural father Heart disease [facility] Natural mother Heart disease [facility] Social History Social Habit Start Date Stop Date Quantity Comments Source Sex Assigned At [facility] Social History 2018-11-10 2018-11-10 [facility] 18:46:08 18:46:08 Tobacco use and 2018-04-10 2018-04-10 Never used [facility] ethodist exposure 00:00:00 00:00:00 Alcohol intake 2018-04-10 2018-04-10 Current drinker [place] [facility] 00:00:00 00:00:00 of alcohol (finding) Tobacco Comment 2017-04-25 2017-04-25 quit in 1980 [facility] 00:00:00 00:00:00 Alcohol Comment 2017-04-25 2017-04-25 once in a while [facility] 00:00:00 00:00:00 - beer Smoking Status Start Date Stop Date Source Former smoker 2018-04-10 00:00:00 2018-04-10 00:00:00 [facility] Medications Ordered Filled Start Stop Current Ordering Indication Dosage Frequency Signature Comments Components Source Medication Medication Date Date Medication? Clinician (SIG) Name Name polyethylen Yes See Memori a e glycol 11-10 Instructio l 3350 with 19:01: ns, as Jules n electrolyte 00 directed, s oral # 4,000 powder for mL, 0 solution Refill(s), Pharmacy: [facility], this is the generic of Golytely being [...] ermann Bitartrate 00 10 MG Oral Tablet [[place] 10/325] finasteride Yes 5 mg = 1 [...] Comments Source Height 2018-11-10 18:42:00 175.26 cm [facility] Weight 2018-11-10 18:42:00 [facility] Rate 2018-11-10 18:42:00 [facility] Saurav BMI Calculated 2018-11-10 18:42:00 Helen link [place] Systolic (mm Hg) 2018-11-10 18:42:00 Ryan milan [place] Diastolic (mm Hg) 2018-11-10 18:42:00 [facility] [place] Procedures Procedure Date / Time Performed Performing Clinician Sourc e Colonoscopy 2018-11-20 05:00:00 [facility] Cataract surgery [facility] Jules n Heart valvuloplasty [facility] Hiatus hernia repair [facility] rmann Open heart surgery [facility] jero Repair of heart valve [facility] Plan of Care Planned Activity Planned Date Details Comments Source Future Scheduled 2019-11-14 INFLUENZA VACCINE [place] [facility] 00:00:00 [code = INFLUENZA VACCINE] Future Scheduled 2001 65+ PNEUMOCOCCAL [place] [facility] Test 00:00:00 VACCINE (1 of 1 - PPSV23) [code = 65+ PNEUMOCOCCAL VACCINE (1 of 1 - PPSV23)] Future Scheduled 1986 SHINGLES VACCINES (#1) [place] [facility] 00:00:00 [code = SHINGLES VACCINES (#1)] Future Scheduled 1946 DIABETIC FOOT EXAM [place] [facility] 00:00:00 [code = DIABETIC FOOT EXAM] Future Scheduled 1946 URINE MICROALBUMIN [place] [facility] Test 00:00:00 [code = URINE MICROALBUMIN] Future Scheduled 1936 DIABETES: RETINAL EYE [place] [facility] 00:00:00 EXAM [code = DIABETES: RETINAL EYE EXAM] Encounters Start End Encounter Admission Attending Care Care Encounter Source Date/Time Date/Time Type Type Clinicians Facility Department ID 2018-11-24 2018-11-25 Outpatient [facility] [id number] 15:55:39 23:59:59 00 2018-11-11 2018-11-11 Outpatient [facility] [id number] 10:00:00 23:59:59 2018-11-10 2018-11-10 Outpatient Joseph [facility] [id number] 14:15:00 23:59:59 Aj Mittal 00 Results This patient has no known results.
[2020-02-01] MEDS ORDERED: MORPHINE 2 MG/ML SYR ONE (17:45)
[2020-02-01] MEDS ORDERED: ONDANSETRON 4 MG/2 ML VIAL ONE (17:45)
[2020-02-01 17:47] LABS: Absolute Lymphocytes (CBC) 0.5 K/uL (0.7-4.9); Basophils % 0.4 % (0-1.3); Hematocrit 30.1 % (39.6-49.0); Lymphocytes % 13.2 % (15.3-44.8); MPV 7.6 fL (7.6-11.3); RBC Red Blood Cell Count 3.42 M/uL (4.33-5.43)
[2020-02-01 18:06] LABS: ALT/SGPT 12 U/L (12-78); AST/SGOT 13 U/L (15-37); Albumin 3.1 g/dL (3.4-5.0); Alkaline Phosphatase 66 U/L (45-117); BUN Blood Urea Nitrogen 7 mg/dL (7-18); Bicarbonate 28 mmol/L (21-32); Bilirubin Direct 0.3 mg/dL (0-0.2); Bilirubin Total 0.7 mg/dL (0.2-1.0); Glucose Level 124 mg/dL (74-106); Lipase 72 U/L (73-393); Potassium 3.7 mmol/L (3.5-5.1); Protein, Total 7.5 g/dL (6.4-8.2); Sodium Level 137 mmol/L (136-145)
--- NOTE | 2020-02-01 19:10 | RAD REPORT ---
EXAM DESCRIPTION: US - Scrotum Testicles - 02/01/2020 6:16 pm CLINICAL HISTORY: scrotal pain COMPARISON: No comparisons FINDINGS: Right testicle is 5.4 x 1.9 x 3.1 cm. Left testicle is 4.4 x 2.2 x 3.4 cm. Doppler evaluat ion shows normal blood flow in each testicle. No suspicion for torsion. Patient has several thin-wall ed anechoic cystic areas within the right testicle. These are not regarded as significant. A small ri ght epididymal cyst is present 4 mm in size. This is also not likely clinically significant. No epidi dymis or testicle hyperemia. No solid mass of either testicle. Trace hydrocele present. IMPRESSION: No suspicion for torsion. No suspicious finding in either testicle.
--- NOTE | 2020-02-01 19:19 | RAD REPORT ---
EXAM DESCRIPTION: CT - Chest Abdomen Pelvis W Cont - 02/01/2020 6:29 pm CLINICAL HISTORY: scrotal pain;Chest pain, abdominal pain COMPARISON: Abdomen Pelvis W Contrast dated 01/08/2020; Chest For Pe Angio dated 12/06/2019 TECHNIQUE: Following dynamic enhancement using 100 milliliters nonionic IV contrast, axial imaging o f the chest, abdomen and pelvis was performed. Biphasic technique was utilized through the abdomen. No oral contrast administered. All CT scans are performed using dose optimization technique as appropriate and may include automated exposure control or mA/KV adjustment according to patient size. FINDINGS: No suspicious mass or focal consolidations seen. Interstitial thickening is present simila r or less prominent than seen in November. Minimal airspace opacities are present also less prominent t lanza seen on the November comparison study. No pleural effusion, pleural thickening or pneumothorax. No significant aortic or pulmonary arterial tree finding. Mediastinal and hilar regions show no mass or abnormal lymphadenopathy. No chest wall mass or axillary lymphadenopathy. A few small nonspecific med iastinal lymph nodes are present. Patient has aortic and Coronary artery calcifications. Sternotomy w ires are in place. No pathologic bone process. The liver, spleen and pancreas show no suspicious findings. Several small gallstones are present. The se have been previously detailed. No active gallbladder process. No biliary tree dilatation seen. Sym metric renal function is seen with no mass or hydronephrosis. No pyelonephritis or acute renal parenc hymal process. Small adrenal masses are present believed to be incidental. These are unchanged. Small hiatal hernia is present. No acute gastric finding. No dilated small bowel loops. A few fluid-f illed small bowel loops are present. Retrocecal appendix is normal with the tip positioned at the inf erior margin of the liver. Patient has significant diverticulosis without diverticulitis. No colon ma ss identifiable. No acute GI findings seen. Pelvic and lumbar degenerative changes are present. No acute or destructive finding seen. No significant vascular findings. IMPRESSION: CT chest imaging shows interstitial thickening and very minimal alveolar opacification l ess significant than seen on the December 05 imaging.This is probably baseline or near baseline appea roseann for the lung parenchyma. A few fluid-filled small bowel loops are present and could reflect a nonspecific enteritis. No divert iculitis, appendicitis or other emergent GI finding. Cholelithiasis as previously detailed. No active gallbladder or biliary tree process.
[2020-02-01 19:45] LABS: Urine Blood NEGATIVE (NEG); Urine Glucose NEGATIVE (NEG); Urine Protein NEGATIVE (NEG); Urine Specific Gravity 1.015 (1.005-1.030)
--- NOTE | 2020-02-01 20:11 | EDPHYS ---
Physician Documentation [facility] Name: Stephon Baig Age: 84 yrs Sex: Male : 1935 Arrival Date: 02/01/2020 Time: 15:30 Bed 18 Private MD: ED Physician Jacinto Vela HPI: 01/31 18:46 This 84 yrs old Male presents to ER via Wheelchair with complaints of kdr Abdominal Pain, Urinary Problem. 18:46 The patient presents with scrotal pain, of the right side, of both sides. Onset: The kdr symptoms/episode began/occurred gradually, 2 day(s) ago. Modifying factors: The symptoms are alleviated by nothing, the symptoms are aggravated by movement, walking. Associated signs and symptoms: Pertinent positives: Concerned that he may have a UTI in his right testicle. Severity of symptoms: At their worst the symptoms were mild, moderate, just prior to arrival, in the emergency department the symptoms are unchanged. The patient has not experienced similar symptoms in the past, Did have a UTI recently. The patient has not recently seen a physician. 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 - Social history:: Smoking status: Patient denies any tobacco usage or history of. ROS: 18:46 Constitutional: Negative for fever, chills, and weight loss, Eyes: Negative for injury, kdr pain, redness, and discharge, ENT: Negative for injury, pain, and discharge, Neck: Negative for injury, pain, and swelling, Cardiovascular: Negative for chest pain, palpitations, and edema, Respiratory: Negative for shortness of breath, cough, wheezing, and pleuritic chest pain, Abdomen/GI: Negative for abdominal pain, nausea, vomiting, diarrhea, and constipation, Back: Negative for injury and pain, MS/Extremity: Negative for injury and deformity, Skin: Negative for injury, rash, and discoloration, Neuro: Negative for headache, weakness, numbness, tingling, and seizure activity. Psych: Negative for depression, anxiety, suicide ideation, homicidal ideation, and hallucinations, Allergy/Immunology: Negative for hives, rash, and allergies, Endocrine: Negative for neck swelling, polydipsia, polyuria, polyphagia, and marked weight changes, Hematologic/Lymphatic: Negative for swollen nodes, abnormal bleeding, and unusual bruising. 18:46 : Positive for injury or acute deformity, urinary symptoms, urinary frequency, testicular pain Exam: 18:46 Constitutional: This is a well developed, well nourished patient who is awake, alert, kdr and in no acute distress. Head/Face: Normocephalic, atraumatic. Eyes: Pupils equal round and reactive to light, extra-ocular motions intact. Lids and lashes normal. Conjunctiva and sclera are non-icteric and not injected. Cornea within normal limits. Periorbital areas with no swelling, redness, or edema. Neck: Trachea midline, no thyromegaly or masses palpated, and no cervical lymphadenopathy. Supple, full range of motion without nuchal rigidity, or vertebral point tenderness. No Meningismus. Chest/axilla: Normal chest wall appearance and motion. Nontender with no deformity. No lesions are appreciated. Cardiovascular: Regular rate and rhythm with a normal S1 and S2. No gallops, murmurs, or rubs. Normal PMI, no JVD. No pulse deficits. Respiratory: Lungs have equal breath sounds bilaterally, clear to auscultation and percussion. No rales, rhonchi or wheezes noted. No increased work of breathing, no retractions or nasal flaring. Abdomen/GI: Soft, non-tender, with normal bowel sounds. No distension or tympany. No guarding or rebound. No evidence of tenderness throughout. Back: No spinal tenderness. No costovertebral tenderness. Full range of motion. Skin: Warm, dry with normal turgor. Normal color with no rashes, no lesions, and no evidence of cellulitis. MS/ Extremity: Pulses equal, no cyanosis. Neurovascular intact. Full, normal range of motion. Neuro: Awake and alert, GCS 15, oriented to person, place, time, and situation. Cranial nerves II-XII grossly intact. Motor strength 5/5 in all extremities. Sensory grossly intact. Cerebellar exam normal. Normal gait. Psych: Awake, alert, with orientation to person, place and time. Behavior, mood, and affect are within normal limits. 18:46 : CVA tenderness, is absent, Male external genitalia: penile discharge, is absent, tenderness, is palpated in the right inguinal area, of the epididymis area. Vital Signs: 15:36 BP 124 / 50; Pulse 76; Resp 16; Temp 97.2; Pulse Ox 99% ; Weight 80.74 kg; Height 5 ft. sv 9 in. (175.26 cm); 17:00 BP 138 / 53; Pulse 94; Resp 16; Pulse Ox 96% on R/A; tw2 17:44 BP 135 / 59; Pulse 89; Resp 17; Pulse Ox 96% on R/A; tw2 18:40 BP 116 / 46; Pulse 90; Resp 17; Pulse Ox 95% on R/A; tw2 19:05 BP 125 / 55; Pulse 88; Resp 18; Temp 97.5; Pulse Ox 97% ; Pain 0/10; jv1 20:15 BP 129 / 52; Pulse 84; Resp 18; Temp 97.8; Pulse Ox 97% on R/A; Pain 0/10; jv1 15:36 Body Mass Index 26.29 (80.74 kg, 175.26 cm) sv MDM: 18:46 Data reviewed: vital signs, nurses notes, lab test result(s), radiologic studies. kdr Counseling: I had a detailed discussion with the patient and/or guardian regarding: the historical points, exam findings, and any diagnostic results supporting the discharge/admit diagnosis, lab results, radiology results. 20:06 ED course: Patient feeling better. Discussed lab and imaging studies with patient and pkl . Advised to follow up with PCP in 2 to 3 days. Patient and understood instructions. 20:10 Patient medically screened. [facility] 01/31 17:04 Order name: Basic Metabolic Panel; Complete Time: 18:44 kdr 01/31 17:04 Order name: CBC with Diff; Complete Time: 18:44 [facility] 01/31 17:04 Order name: Hepatic Function; Complete Time: 18:44 [facility] 01/31 17:04 Order name: Lipase; Complete Time: 18:44 [facility] 01/31 19:18 Order name: Lactate; Complete Time: 20:03 [facility] 01/31 19:32 Order name: Urine Dipstick--Ancillary (enter results); Complete Time: 19:46 [facility] 01/31 17:04 Order name: IV Saline Lock; Complete Time: 17:38 kdr 01/31 17:04 Order name: Labs collected and sent; Complete Time: 17:38 kdr 01/31 17:17 Order name: US Scrotum Testicles; Complete Time: 19:17 kdr 01/31 17:17 Order name: CT Chest, Abdomen, Pelvis - W/Contrast; Complete Time: 19:43 kdr Administered Medications: 17:40 Drug: Zofran (Ondansetron) 4 mg Route: IVP; Site: right wrist; tw2 18:40 Follow up: Response: No adverse reaction tw2 17:42 Drug: morphine 2 mg {Note: RASS 0.} Route: IVP; Site: right wrist; tw2 18:40 Follow up: Response: No adverse reaction; Pain is decreased; RASS: Alert and Calm (0) tw2 Disposition: 02/01/20 20:10 Discharged to Home. Impression: Abdominal pain. Cholelithiasis. Right testiculor pain. - Condition is Stable. - Medication Reconciliation Form, Thank You Letter, Antibiotic Education, Prescription Opioid Use form. - Follow up: Private Physician; When: 2 - 3 days; Reason: Re-evaluation by your physician. - Problem is new. - Symptoms have improved. Signatures: Dispatcher [employer] EDMS Ros Wills RN RN Jacinto Sosa MD MD pkl Dinesh Diallo MD MD kdr Ballard, Brenda, RN RN Emily Abarca RN RN tw2 Corrections: (The following items were deleted from the chart) 20:40 20:10 02/01/2020 20:10 Discharged to Home. Impression: Abdominal pain. Cholelithiasis. bb Right testiculor pain. Condition is Stable. Forms are Medication Reconciliation Form, Thank You Letter, Antibiotic Education, Prescription Opioid Use. Follow up: Private Physician; When: 2 - 3 days; Reason: Re-evaluation by your physician. Problem is new. Symptoms have improved. pkl
--- NOTE | 2020-02-01 20:11 | ER ---
Nurse's Notes [facility] Name: Stephon Baig Age: 84 yrs Sex: Male : 1935 Arrival Date: 02/01/2020 Time: 15:30 Bed 18 Private MD: Diagnosis: Abdominal pain. Cholelithiasis. Right testiculor pain Presentation: 01/31 15:35 Chief complaint: Patient states: testicles, and reports having a UTI. Reports he has sv been dealing with UTIs for a long time. Coronavirus screen: Client denies travel out of the [place] in the last 14 days. At this time, the client does not indicate any symptoms associated with coronavirus-19. Ebola Screen: No symptoms or risks identified at this time. Risk Assessment: Do you want to hurt yourself or someone else? Patient reports no desire to harm self or others. Onset of symptoms is unknown. 15:35 Method Of Arrival: Wheelchair sv 15:35 Acuity: GREGORIO 3 sv 15:36 Initial Sepsis Screen: Does the patient meet any 2 criteria? No. Patient's initial sv sepsis screen is negative. Does the patient have a suspected source of infection? No. Patient's initial sepsis screen is negative. Triage Assessment: 15:38 General: Appears in no apparent distress. comfortable, Behavior is calm, cooperative, sv appropriate for age. Pain: Complains of pain in testicles. Neuro: Level of Consciousness is awake, alert, obeys commands. Respiratory: Respiratory effort is even, unlabored. : Reports burning with urination. 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 - Social history:: Smoking status: Patient denies any tobacco usage or history of. Screenin:45 Abuse screen: Denies threats or abuse. Nutritional screening: No deficits noted. tw2 Tuberculosis screening: No symptoms or risk factors identified. Fall Risk Secondary diagnosis (15 points) impaired mobility. Assessment: 17:00 General: Appears in no apparent distress. uncomfortable, well groomed, Behavior is tw2 calm, cooperative, appropriate for age. Pain: Complains of pain in right testicle. Neuro: Level of Consciousness is awake, alert, obeys commands, Oriented to person, place, time, situation. Cardiovascular: Heart tones S1 S2 Patient's skin is warm and dry. Respiratory: Airway is patent Respiratory effort is even, unlabored, Respiratory pattern is regular, symmetrical, Breath sounds are clear bilaterally. GI: Abdomen is round non-distended, Bowel sounds present X 4 quads. Abd is soft X 4 quads. : Reports "swelling and pain in RIGHT testicle" denies burning with urination or blood in urine. Derm: No signs and/or symptoms reported regarding the dermatologic system. Musculoskeletal: Range of motion: intact in all extremities. 17:07 Reassessment: provider at bedside at this time. tw2 17:44 Reassessment: Patient appears in no apparent distress at this time. No changes from tw2 previously documented assessment. Patient and/or family updated on plan of care and expected duration. Pain level reassessed. Patient is alert, oriented x 3, equal unlabored respirations, skin warm/dry/pink. "i have no pain laying here its when i go to move or stand up the pain goes to a 10/10". 17:52 Reassessment: US at bedside at this time. tw2 18:40 Reassessment: Patient appears in no apparent distress at this time. No changes from tw2 previously documented assessment. Patient and/or family updated on plan of care and expected duration. Pain level reassessed. Patient is alert, oriented x 3, equal unlabored respirations, skin warm/dry/pink. 19:05 General: Appears in no apparent distress. comfortable, well groomed, Behavior is calm, jv1 cooperative, appropriate for age. Pain: Complains of pain in right testicle Pain does not radiate. Pain currently is 1 out of 10 on a pain scale. Quality of pain is described as aching, Pain began this morning. Neuro: Level of Consciousness is awake, alert, obeys commands, Oriented to person, place, time, situation. Cardiovascular: Heart tones S1 S2 Patient's skin is warm and dry. Respiratory: Airway Respiratory effort is even, unlabored, Respiratory pattern is regular, symmetrical. GI: Abdomen is round non-distended, Bowel sounds present X 4 quads. Abd is soft X 4 quads. : Reports swelling and pain in right testicle. Derm: No signs and/or symptoms reported regarding the dermatologic system. Musculoskeletal: Range of motion: intact in all extremities. 19:15 Reassessment: Dr. Vela assesses pt. jv1 19:30 Reassessment: showed Dr. Vela result of the urine dipstick and he said no need for urine jv1 micro. 20:05 Reassessment: Patient appears in no apparent distress at this time. No changes from jv1 previously documented assessment. Patient and/or family updated on plan of care and expected duration. Pain level reassessed. Patient is alert, oriented x 3, equal unlabored respirations, skin warm/dry/pink. showed Dr. Vela the result of the urine dipstick and he said no need to send for urine micro. Vital Signs: 15:36 BP 124 / 50; Pulse 76; Resp 16; Temp 97.2; Pulse Ox 99% ; Weight 80.74 kg; Height 5 ft. sv 9 in. (175.26 cm); 17:00 BP 138 / 53; Pulse 94; Resp 16; Pulse Ox 96% on R/A; tw2 17:44 BP 135 / 59; Pulse 89; Resp 17; Pulse Ox 96% on R/A; tw2 18:40 BP 116 / 46; Pulse 90; Resp 17; Pulse Ox 95% on R/A; tw2 19:05 BP 125 / 55; Pulse 88; Resp 18; Temp 97.5; Pulse Ox 97% ; Pain 0/10; jv1 20:15 BP 129 / 52; Pulse 84; Resp 18; Temp 97.8; Pulse Ox 97% on R/A; Pain 0/10; jv1 15:36 Body Mass Index 26.29 (80.74 kg, 175.26 cm) sv ED Course: 15:30 Patient arrived in ED. mr 15:35 Arm band placed on. sv 15:36 Triage completed. sv 16:20 Dinesh Diallo MD is Attending Physician. kdr 16:29 Emily Hernandez RN is Primary Nurse. tw2 17:00 Bed in low position. Call light in reach. Adult w/ patient. Pulse ox on. NIBP on. Warm tw2 blanket given. 17:23 Missed attempt(s): 22 gauge in right antecubital area. Bleeding controlled, band aid tw2 applied, catheter tip intact. Missed attempt(s): 22 gauge in right antecubital area. notified Marietta Byrd of need for IV at this time.. Bleeding controlled, band aid applied, catheter tip intact. 17:35 Inserted saline lock: 22 gauge in right wrist, using aseptic technique. dh3 17:35 Initial lab(s) drawn, by me, sent to lab. dh3 18:16 US Scrotum Testicles In Process Unspecified. EDMS 18:30 CT Chest, Abdomen, Pelvis - W/Contrast In Process Unspecified. EDMS 19:00 Report given to ROMINA Islas. tw2 19:02 Attending Physician role handed off by Dinesh Diallo MD pkanuj 19:02 Jacinto Vela MD is Attending Physician. pkl 19:18 Primary Nurse role handed off by Emily Hernandez RN mw2 19:39 Lactate Sent. jv1 20:15 No provider procedures requiring assistance completed. IV discontinued, intact, jv1 bleeding controlled, No redness/swelling at site. Pressure dressing applied. Administered Medications: 17:40 Drug: Zofran (Ondansetron) 4 mg Route: IVP; Site: right wrist; tw2 18:40 Follow up: Response: No adverse reaction tw2 17:42 Drug: morphine 2 mg {Note: RASS 0.} Route: IVP; Site: right wrist; tw2 18:40 Follow up: Response: No adverse reaction; Pain is decreased; RASS: Alert and Calm (0) tw2 Outcome: 20:10 Discharge ordered by . pkanuj 20:15 Discharge instructions given to patient, significant other, Instructed on discharge jv1 instructions, follow up and referral plans. Demonstrated understanding of instructions, follow-up care, medications. 20:20 Discharged to home jv1 20:20 Condition: stable 20:40 Patient left the ED. bb Signatures: Dispatcher [employer] EDSD Ros Wills RN RN Jacinto Vela MD MD pkDinesh Calixto MD MD kdr Rivera, Mary mr Ballard, Brenda, RN RN bb Emily Hernandez RN RN tw2 Rochelle Gonzales 3 Luis E Krishnan 2 Janel Ambrose RN RN jv1 Corrections: (The following items were deleted from the chart) 15:39 15:36 Resp 16bpm; Pulse Ox 99%; Temp 97.2F; 80.74 kg; Height 5 ft. 9 in.; BMI: 26.2; sv sv 17:40 17:39 Inserted saline lock: 22 gauge in right forearm, using aseptic technique. dh3 dh3 17:43 17:42 morphine 2 mg IVP in right wrist tw2 tw2
[2020-02-01 22:49] VITALS: TEMP 97.2
[2020-02-01 22:54] VITALS: BP 116/46; O2SAT 95
== END 2020-02-01 20:40 | disposition home or self-care (01) ==
LOC: ER 15:26
DX: K80.20 Calculus of gallbladder without cholecystitis without obstruction (principal); N50.811 Right testicular pain; Z95.1 Presence of aortocoronary bypass graft; Z95.4 Presence of other heart-valve replacement
CPT/HCPCS: 85025; 80048; 36415; 80076; 83605; 81003; 83690; 71260; 74177; 76870; 96375; 96374; 99284; Q9967; J2270; J2405

== ENCOUNTER 2020-02-24 15:45 | Emergency (ER) | payer OTHER, BC ==
--- OUTSIDE RECORDS SUMMARY | 2020-02-24 15:49 | XMS REPORT | Continuity of Care Document ---
:1935 Author Organization [facility] t Address [address] [place] [address] Care Team Providers Name Role Phone Roge Hays MD Primary Care Physician Carolyn MCGREGOR, [facility] Attending Clinician Alina MCGREGOR, O. Attending Clinician Neda MCGREGOR Attending Clinician Daxa Ruiz Attending Clinician ALINA Admitting Clinician Unavailable Payers Payer Name Policy Type Policy Effective Date Expiration Date Sour ce Number MEDICAREMEDICARE PART [id number] nadya Gutierrez AND 00:00:00 Religion [id number] 2001 [place], [place] 2013 [place] MEDICARE 0 00:00:00 Religion [id number] 2013-[facility] mercial Problems Condition Condition Condition Status Onset Resolution Last Treating Co mments Source Name Details Category Date Date Treatment Clinician Date Lumbar Lumbar Disease Active 2019-04 [place] pain pain 0-23 Methodi 00:00: st 00 Gastrointe Gastrointe Disease Active 2017-[address] 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 Anemia Anemia Disease Active 2017-04 [place] 2-19 Methodi 00:00: st 00 Coronary Coronary Disease Active 2017-04 [place] on artery artery 2-19 Methodi disease disease 00:00: st involving involving 00 [place] coronary coronary artery artery Essential Essential Disease Active 2017-04 Simone [place] hypertensi hypertensi 2-19 Me thodi on on 00:00: st 00 Type 2 Type 2 Disease Active 2017-04 [place] diabetes diabetes 2-19 Method i mellitus mellitus 00:00: st 00 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 [place] hyperchole hyperchole 2-19 Me thodi sterolemia sterolemia 00:00: st 00 Acute Acute Disease Active 2017-04 Overview: [place] blood loss blood loss 2-19 Added Me thodi anemia anemia 00:00: automatic st ally from request for surgery [id number] Carotid Carotid Disease Active [place] stenosis, stenosis, 1-11 Meth maira right right 00:00: st 00 Post-opera Post-opera Disease Active [place] tive pain tive pain 1-11 Meth maira 00:00: st 00 Hyperchole Problem Active 2018-11-28 M emoria sterolemia 00:44:14 l (disorder) Jules n Hyperchole sterolemia (disorder) Active Problem 11/28/2018 Medical Group Hypertensi Problem Active 2018-11-28 M emoria ve 00:44:14 l disorder, [place] systemic Hypertensi arterial ve (disorder) disorder, systemic [...] Stop Date Source Natural father Heart disease [place] Religion Natural mother Heart disease [facility] Social History Social Habit Start Date Stop Date Quantity Comments Source Sex Assigned At [facility] ethodist Exposure to Not sure [place] Metho dist SARS-CoV-2 (event) Tobacco use and 2020-02-05 2020-02-05 Never used [facility] ethodist exposure 00:00:00 00:00:00 Alcohol intake 2020-02-05 2020-02-05 Current drinker Tomás on Religion 00:00:00 00:00:00 of alcohol (finding) Social History 2018-11-10 2018-11-10 [facility] Julieta haywood 18:46:08 18:46:08 Tobacco Comment 2017-04-25 2017-04-25 quit in 1981 Montes Religion 00:00:00 00:00:00 Alcohol Comment 2017-04-25 2017-04-25 once in a while Courtney asif Religion 00:00:00 00:00:00 - beer Smoking Status Start Date Stop Date Source Former smoker 2020-02-05 00:00:00 2020-02-05 00:00:00 [place] Religion Medications Ordered Filled Start Stop Current Ordering Indication Dosage Frequency Signature Comments Components Source Medication Medication Date Date Medication? Clinician (SIG) Name Name aspirin 2019-04- Yes 81mg QD Take 1 Montes (ECOTRIN) 0-05-12 tablet (81 Met hodi 81 MG 00:00: 23:59 mg total) st enteric 00 :00 by mouth coated daily for tablet 90 days. clopidogreL 2019-04 2020- Yes 75mg QD Take 1 Simone ston (PLAVIX) 75 0-30 - tablet (75 M ethodi mg tablet 00:00: 23:59 mg total) st 00 :00 by mouth daily for 30 days. pantoprazol 2019-04 2020- Yes 40mg QD Take 1 Simone ston e 0-30 - tablet (40 Methodi (PROTONIX) 00:00: 23:59 mg total) s t 40 MG EC 00 :00 by mouth tablet daily for 30 days. polyethylen 2019-04 2020- Yes 17g QD Take 17 g Montes e glycol 0-30 -29 by mouth Method i (MIRALAX) 00:00: 23:[address] 17 gram 00 :00 30 days. packet HYDROcodone 2019-04 2020- No 1{tbl} Q6H Take 1 [place] -acetaminop 0-29 10-29 tablet by Ny vale jenkins (NORCO) 17:14: 00:[address] 10-325 mg 01 :00 every 6 per tablet (six) hours as needed for moderate pain. simvastatin 2019-04 Yes 40mg QD Take 40 mg Montes (ZOCOR) 40 0-29 by mouth Metho di MG tablet 17:13: nightly. st 58 terazosin 2019-04 Yes 10mg QD Take 10 mg [place] (HYTRIN) 5 29 by mouth Metho di MG capsule 17:13: nightly. st 58 latanoprost 2019-04 Yes 1[drp] QD Administer Montes (XALATAN) 0 1 drop to Metho di 0.005 % 17:13: both eyes st ophthalmic 58 nightly. solution docusate 2019-04- Yes 100mg Q.5D Take 1 [place] sodium 03-12 capsule Methodi (COLACE) 00:00: 23:59 ([address] 100 MG 00 :00 total) by capsule mouth 2 (two) times a day for 30 days. lidocaine 2019-04- Yes 1{patch Q24H Place 1 [place] (LIDODERM) 03-12 } patch on Meth maira 5 % 00:00: 23:[address] 00 :00 daily for 30 days. Remove & Discard patch within 12 hours or as directed by polyethylginna Yes See Memori a e glycol - Instructio l 3350 with 19:01: ns, as Jules n electrolyte 00 directed, s oral # 4,000 powder for mL, 0 solution Refill(s), Pharmacy: [facility] Trezevant, this is the generic of Golytely being [...] ermann Bitartrate 00 10 MG Oral Tablet [Mcallen 10/325] finasteride Yes 5 mg = 1 Me moria 5 mg oral 7-29 tab, PO, l tablet 18:46: Daily, # [place] 00 30 tab, 0 Refill(s) Aspirin Yes 0 Memoria 7-29 Refill(s) l 18:46: Saurav 00 terazosin Yes 10 mg = 1 Mem oria 10 mg oral 7-29 cap, PO, l capsule 18:46: Bedtime, 0 Herm jero 00 Refill(s) Vital Signs Vital Name Observation Time Observation Value Comments Source Systolic blood 2020-02-11 08:33:39 136 mm[Hg] Lexie Cruz pressure Diastolic blood 2020-02-11 08:33:39 63 mm[Hg] Tomás fung Religion pressure Heart rate 2020-02-11 08:33:39 92 /min Simon Cruz Body temperature 2020-02-11 08:33:39 35.67 Elaine Courtney asif Religion Respiratory rate 2020-02-11 08:33:39 18 /min Courtney Cruz Oxygen saturation in 2020-02-11 08:33:39 97 /min Simon Cruz Arterial blood by Pulse oximetry Height 2018-11-10 18:42:00 175.26 cm [facility] Weight 2018-11-10 18:42:00 [facility] Heart Rate 2018-11-10 18:42:00 [facility] BMI Calculated 2018-11-10 18:42:00 Helen al [place] Systolic (mm Hg) 2018-11-10 18:42:00 Ryan rial [place] Diastolic (mm Hg) 2018-11-10 18:42:00 Mem orial Saurav Procedures Procedure Date / Time Performing Clinician Source Performed PROSTATE SPECIFIC ANTIGEN 2020-02-11 06:00:00 Hema Aden URINE CULTURE 2020-02-10 21:00:00 Hema Aden Meth odgabriel URINALYSIS SCREEN AND 2020-02-10 21:00:00 Hema Aden MICROSCOPY, WITH REFLEX TO CULTURE NM BONE SCAN WHOLE BODY 2020-02-09 16:02:16 Brittney Ng NM SPECT BONE SCAN 2020-02-09 16:01:[address] ABDOMEN PELVIS W 2020-02-08 15:34:33 Brittney Ng CONTRAST HC COMPLETE BLD COUNT 2020-02-08 06:00:00 Brittney Ng W/AUTO DIFF BASIC METABOLIC PANEL 2020-02-08 04:00:00 Brittney Ng ESTIMATED GFR 2020-02-08 04:00:00 Brittney Ng MRI THORACIC SPINE WO 2020-02-07 09:21:00 Brittney Ng CONTRAST MRI CERVICAL SPINE WO 2020-02-07 08:54:00 Brittney Ng CONTRAST HC COMPLETE BLD COUNT 2020-02-07 04:48:00 Brittney Ng W/AUTO DIFF BASIC METABOLIC PANEL 2020-02-07 04:48:00 Brittney Ng ESTIMATED GFR 2020-02-07 04:48:00 Brittney Ng POC GLUCOSE 2020-02-06 16:47:00 Brittney Ng POC GLUCOSE 2020-02-06 12:12:00 Brittney Ng POC GLUCOSE 2020-02-06 07:28:00 Brittney Ng LACTIC ACID LEVEL, SEPSIS 2020-02-06 01:09:00 Brittney Ng - NOW AND REPEAT 2X EVERY 3 HOURS TROPONIN 2020-02-06 01:09:00 Brittney Ng HC COMPLETE BLD COUNT 2020-02-06 01:09:00 Brittney Ng W/AUTO DIFF BASIC METABOLIC PANEL 2020-02-06 01:09:00 Brittney Ng HEMOGLOBIN A1C 2020-02-06 01:09:00 Brittney Ng LIPID PANEL 2020-02-06 01:09:00 Brittney Ng THYROID STIMULATING 2020-02-06 01:09:00 Brittney Ng HORMONE T4, FREE 2020-02-06 01:09:00 Brittney Ng URIC ACID LEVEL 2020-02-06 01:09:00 Brittney Ng HEPARIN PF4 ANTIBODY (IGG) 2020-02-06 01:09:00 Brittney Ng ESTIMATED GFR 2020-02-06 01:09:00 Brittney Ng MRI LUMBAR SPINE WO 2020-02-05 21:40:00 Shahla Leon CONTRAST BLOOD CULTURE, AEROBIC & 2020-02-05 20:09:00 Shahla Leon ANAEROBIC XR CHEST 1 VW PORTABLE 2020-02-05 19:24:06 Sara Leonh Shannon Simon Cruz BLOOD CULTURE, AEROBIC & 2020-02-05 19:19:00 Sara Leonh Monisha Cruz ANAEROBIC HC COMPLETE BLD COUNT 2020-02-05 19:09:00 Sara Leonh Shannon Julieta Cruz W/AUTO DIFF PROTHROMBIN TIME WITH INR 2020-02-05 19:09:00 Sara Leonh Brenda ky Simon Cruz PARTIAL THROMBOPLASTIN 2020-02-05 19:09:00 Alta Leon-Shannon Shannon Simon Cruz TIME (PTT) COMPREHENSIVE METABOLIC 2020-02-05 19:09:00 Sara Leonh Shannon Simon Cruz PANEL LACTIC ACID LEVEL, SEPSIS 2020-02-05 19:09:00 Brittney Ng - NOW AND REPEAT 2X EVERY 3 HOURS TROPONIN 2020-02-05 19:09:00 Brittney Ng B NATRIURETIC PEPTIDE 2020-02-05 19:09:00 Sara Leonh Shannon Julieta Cruz ESTIMATED GFR 2020-02-05 19:09:00 Sara Leonh Shannon Simon Cruz ECG ED PRELIMINARY 2020-02-05 18:59:16 Alta Leon-[facility] Shannon Courtney Cruz INTERPRETATION COVID-19 QUALITATIVE PCR 2020-02-05 18:58:00 [facility] Monisha Cruz ECG 12-LEAD 2020-02-05 17:37:27 [facility]z PROSTATE SPECIFIC ANTIGEN 2020-02-05 11:33:00 Pernell Huerta Colonoscopy 2018-11-20 05:00:00 [facility] Cataract surgery [facility] Heart valvuloplasty [facility] Hiatus hernia repair [facility] Open heart surgery [facility] Repair of heart valve [facility] Plan of Care Planned Activity Planned Date Details Comments Source Future Scheduled 2019-11-14 INFLUENZA VACCINE Lexie Cruz Test 00:00:00 [code = INFLUENZA VACCINE] Future Scheduled 2001 65+ PNEUMOCOCCAL Simon Cruz Test 00:00:00 VACCINE (1 of 1 - PPSV23) [code = 65+ PNEUMOCOCCAL VACCINE (1 of 1 - PPSV23)] Future Scheduled 1986 SHINGLES VACCINES (#1) H carlene Religion Test 00:00:00 [code = SHINGLES VACCINES (#1)] Future Scheduled 1945 DIABETES: RETINAL EYE [place] Religion Test 00:00:00 EXAM [code = DIABETES: RETINAL EYE EXAM] Future Scheduled 1945 DIABETIC FOOT EXAM [place] Religion Test 00:00:00 [code = DIABETIC FOOT EXAM] Future Scheduled 1945 URINE MICROALBUMIN [place] Religion Test 00:00:00 [code = URINE MICROALBUMIN] Encounters Start End Encounter Admission Attending Care Care Encounter Source Date/Time Date/Time Type Type Clinicians Facility Department ID 2020-02-05 2020-02-11 Inpatient [facility] [id number] [place] 00:00:00 00:00:00 BRITTNEY [address] 2020-02-05 2020-02-05 [id number] [place] 00:00:00 00:00:00 PERNELL [address] 2018-11-24 2018-11-25 Outpatient [facility] [id number] 15:55:39 23:59:59 2018-11-11 2018-11-11 Outpatient [facility] [id number] 10:00:00 23:59:59 2018-11-10 2018-11-10 Outpatient Joseph [facility] [id number] 14:15:00 23:59:59 Aj Mittal 00 Results Test Description Test Time Test Comments Results Result Comments Source Blood culture, aerobic & anaerobic 2020-02-21 08:50:42 Test Item Value Reference Range Interpretation Comme nts Blood culture isolate Streptococcus bovis A Specimen InformationSpecimen (test code = 600-7) groupAer/Suzette Source: BloodSpecimen Site: bottles:Organism failed to F orearm, right thrive for susceptibility testing. Lab Interpretation (test Abnormal code = 31252-3) [place] [facility] specific [id number] 07:23:22 Test Item Value Reference Range Interpretation Comments PSA (test code = 1.4 ng/mL 0-4 The PATRICIA 8 000 PSA 2857-1) immunoassay was used. Results obtaine d with different assay methods or kits should not be used interchangeably and may be different. Montes MethodistUrinalysis screen and microscopy, with reflex to culture 2020-02-10 22:10:22 Test Item Value Reference Range Interpretation Comments Specimen site (test code = Clean catch 3638213) Color, UA (test code = 5778-6) Yellow Appearance, UA (test code = Cloudy 5767-9) Specific gravity, UA (test code = 1.011 1.001-1.035 5811-5) pH, UA (test code = 5803-2) 7.0 5.0-8.5 Protein, UA (test code = 90707-4) Negative Negative Glucose, UA (test code = 06312-2) Negative Negative Ketones, UA (test code = 2514-8) Negative Negative Bilirubin, UA (test code = Negative Negative 5770-3) Blood, UA (test code = 5794-3) Negative Negative Nitrite, UA (test code = 5802-4) Negative Negative Urobilinogen, UA (test code = 4.0 <2.0 A 40925-1) Leukocyte esterase, UA (test code Negative Negative = 5799-2) WBC, UA (test code = 5821-4) <1 0- 1 /HPF RBC, UA (test code = 13244-4) <1 0- 5 /HPF Bacteria, UA (test code = None seen None seen 77811-9) Yeast, UA (test code = 24659-4) None seen Yeast with pseudohyphae, UA (test None seen code = 10702-0) Amorphous crystals (test code = Few 19872-7) Lab Interpretation (test code = Abnormal 03329-4) [facility] [id number] 22:08:58 Test Item Value Reference Range Interpretation Comments Urine culture (test SEE COMMENT Bacteriu eulalia screen code = 6001312) negative. Montes ReligionNY Bone Scan Whole [id number] 18:36:41Hm Interface, Radiology Results 02/09/2020 6:39 PM CDTPROCEDURE: NM BONE SCAN WHOLE BODY, NM SPECT BONE SCANINDICATION: Abnormal x-ray. COMPARISON: MRI of the thoracolumbar spine 02/07/2020. TECHNIQUE: Approximately three hours after the IV administration of 25 mCi of Tc-99m labeled MDP, routine whole body planar bone scanning was performed in the anterior and posterior projections. SPECT imaging of the lower thoracic and lumbar spine was obtained. FINDINGS: Mild uptake is present at T9/T10 and L4/L5, most compatible with degenerative change. Mild degenerative uptake is also notedin the shoulders. No intense uptake is seen to suggest underlying osteomyelitis. IMPRESSION: 1. Degenerative uptake in the thoracolumbar spine.[id number] MethodistNM Spect Bone Scan 2020-02-09 18:36:41Hm Interface, Radiology Results 02/09/2020 6:39 PM CDTPROCEDURE: NM BONE SCAN WHOLE BODY, NM SPECT BONE SCANINDICATION: Abnormal x-ray. COMPARISON: MRI of the thoracolumbar spine 02/07/2020. TECHNIQUE: Approximately three hours after the IV administration of 25 mCi of Tc-99m labeled MDP, routine whole body planar bone scanning was performed in the anterior and posterior projections. SPECT imaging of the lower thoracic and lumbar spine was obtained. FINDINGS: Mild uptake is present at T9/T10 and L4/L5, most compatible with degenerative change. Mild degenerative uptake is also notedin the shoulders. No intense uptake is seen to suggest underlying osteomyelitis. IMPRESSION: 1. Degenerative uptake in the thoracolumbar spine.[facility]-[id number] MethodistHeparin PF4 antibody (IgG)2020-02-09 03:23:56 Test Item Value Reference Range Interpretation Comments Heparin PF4 Ab OD reading (test code 0.396 0.000-0.399 = 1500) Heparin PF4 Ab, IgG (test code = Negative Negative 94436-0) [facility] Abdomen Pelvis W [id number] 15:44:56Hm Interface, Radiology Results 02/08/2020 3:48 PM CDTEXAMINATION: CT ABDOMEN PELVIS W CONTRASTCLINICAL HISTORY: Abd pain unspecifiedCOMPARISON: September 13, 2016TECHNIQUE: Multiple axial CTimages of the Abdomen and pelvis were obtained With IV contrast Oral contrast was administered. . Sagittal and coronal reconstructions were done. CT imaging was performed with iterative reconstruction technique and/or automated exposure control to reduce radiation dose.FINDINGS:HEPATOBILIARY: No focal hepatic lesions. No biliary ductal dilation..GALLBLADDER: Cholelithiasis without signs of cholecystitis.SPLEEN: No splenomegaly.PANCREAS: No focal masses or ductal dilation.ADRENALS: Bilateral adrenal nodules has the density of adenomas on the prior examKIDNEYS: There is a stable either calyceal stone in the right kidney. No stones are seen in the left kidney.. No renal mass. No hydronephrosis bilaterallyPERITONEUM/RETROPERITONEUM: No free air or fluid. No lymphadenopathy.ABDOMINAL AORTA/IVC: No aneurysm or dissection.GI TRACT: The bowel demonstrate no distention or wall thickening. There are no signs of appendicitis. No signs of diverticulitis.PELVIC ORGANS/BLADDER: No acute abnormality.BONES AND SOFT TISSUES: No acute abnormality.VISUALIZED LOWER CHEST: No acute abnormality. There issome scarring of the lung bases. Heart is enlarged with atherosclerosis coronary arteries. There is a small hiatal hernia.IMPRESSION:No acute abnormality.[place] [id number] Health Southwest [facility] Worth with platelet and [id number] 09:31:12 Test Item Value Reference Range Interpretation Comments WBC (test code = 23641-5) 4.64 4.50- 11.00 k/uL RBC (test code = 96078-0) 3.38 m/uL 4.4-6 L HGB (test code = 718-7) 9.6 g/dL 14-18 L HCT (test code = 4544-3) 32.3 % 41-51 L MCV (test code = 787-2) 95.6 fL 82-100 MCH (test code = 785-6) 28.4 pg 27-34 MCHC (test code = 786-4) 29.7 g/dL 31-37 L RDW - SD (test code = 48.3 fL 37-55 51553-9) MPV (test code = 89783-8) 8.9 fL 8.8-13.2 Platelet count (test code 280 150- 400 k/uL = 48274-1) Nucleated RBC (test code 0.00 /100 WBC = 00747-0) Neutrophils (test code = 67.7 % 39-69 49395-9) Lymphocytes (test code = 17.5 % 25-45 L 68196-7) Monocytes (test code = 11.6 % 0-10 H 18166-8) Eosinophils (test code = 2.4 % 0-5 25218-5) Basophils (test code = 0.4 % 0-1 77243-9) Immature granulocytes 0.4 % 0-1 "Immat ure (test code = 32646-4) granul ocytes" (promyelocytes, myelocytes, metamyelocytes) Lab Interpretation (test Abnormal code = 94276-0) Simon MethodistBasic metabolic [id number] 07:53:23 Test Item Value Reference Range Interpretation Comments Sodium (test code = 2951-2) 135 135- 148 mEq/L Potassium (test code = 2823-3) 4.9 3.5- 5.0 mEq/L Chloride (test code = 2075-0) 100 98- 112 mEq/L CO2 (test code = 8-9) 21 24- 31 mEq/L L Anion gap (test code = 30093-9) 14@ANIO 7- 15 mEq/L BUN (test code = 3094-0) 8 mg/dL 8-23 Creatinine (test code = 2160-0) 0.67 mg/dL 0.7-1.2 L Glucose (test code = 2345-7) 125 mg/dL 65-99 H Calcium (test code = 15754-4) 11.1 mg/dL 8.8-10.2 H Lab Interpretation (test code = Abnormal 64078-0) Montes MethodistEstimated [id number] 07:53:23 Test Item Value Reference Range Interpretation Comments Estimated GFR (test 88 mL/min/1.73 m2 [facility] Units code = 5488) InterpretationG 1 >=90 Normal or highG2 60-89 Mildly xvisnoogjG2t 45-59 Mildly to mode rately zxrvgdbrgC9o 30-44 Moderately to severely decreasedG4 15-29 Severely decre asedG5 <15 Kidn ey failureThe eGFR was calculated usin g the Chronic Kidney Disease Epidemiology Co llaboration (CKD-EPI) equat ion. Interpretation is based on recommendations of the National Kidney Foundation-Kidn ey Disease Outcomes Qualit y Initiative (NKF-KDOQI) pub lished in 2014. Montes BrendaistMRI Thoracic Spine Wo [id number] 13:08:02Hm Interface, Radiology Results - 02/07/2020 1:11 PM CDTEXAM: MRI THORACIC SPINE WO CONTRASTCLINICAL HISTORY: Severe mid back painTECHNIQUE: Multiplanar multisequence noncontrast enhanced examination was performed of the thoracic spine.COMPARISON: NoneFINDINGS:It is important to note that current imaging is degraded secondary to motion related artifact.There is abnormal T1 hypointense/STIRhyperintense osseous signal abnormality at the T9-T10 levels, particularly inferior aspect of T9. Findings likely reflective of prominent Modic type I degenerative edema; an associated compression deformity of the inferior aspect of the T9 vertebral body cannot be entirely excluded if the history of recent trauma. No significant abnormal disc signal nor surrounding inflammatory changes are present tosuggest discitis-osteomyelitis. Of note, there is no retropulsion or cord compromise at this level.Thoracic alignment, vertebral body height, and bone marrow signal are otherwise within normal limits. There is otherwise no evidence of acute fracture, suspicious osteolytic lesion, or suspicious osteoblastic lesion. Mild thoracic spondylosis is identified with scattered mild disc height loss and anterolateral osteophyte formation, particularly at the mid thoracic spine. A few scattered subtle central disc bulges and shallow protrusions are seen. Furthermore, subtle scattered facet hypertrophy is identified. There is impression upon the thecal sac without evidence of significant thecal sac stenosis. No acute foraminal narrowing.No abnormal cord signal is identified. Visualized paraspinal soft tissues are unremarkable.No incidental thyroid nodules are noted.IMPRESSION: 1.There is abnormal edematous signal abnormality at the T9-T10 levels, particularly inferior aspect of T9. Findings likely reflective of prominent Modic type I degenerative edema; an associated compression deformity of the inferior aspect of the T9 vertebral body cannot be entirely excluded if the history of recent trauma. No significant abnormal disc signal nor surrounding inflammatory changes are present to suggest discitis-osteomyelitis. Of note, there is no retropulsion or cord compromise at this level.2.Otherwise no MRI evidence for acute vertebral fracture, spondylolisthesis, abnormal marrow signal, or abnormal cord signal.[id number] MethodistMRI Cervical Spine Wo [id number] 09:30:58Hm Interface, Radiology Results - 02/07/2020 9:34 AM CDTEXAM: MRI CERVICAL SPINE WO CONTRASTCLINICAL HISTORY: Neck pain chronic normal neuro exam neg xrayTECHNIQUE: Multiplanar multisequence noncontrast enhanced examination was performed of the cervical spine.COMPARISON: CTA neck, 12/20/2017FINDINGS:It is important to note that imaging is mildly degraded secondary to motion related artifact.Taking this into consideration, a mild amount of pannus is identified dorsal to the atlantoaxial joint with impression upon the ventral thecal sac at this level. The cervicomedullary junction is otherwise unremarkable in appearance.There is mild straightening of cervical lordotic curvature which is likely partly due to patient positioning.Cervical lordotic alignment, vertebral body height, and bone marrow signal are otherwise within normal limits. There is no evidence of acute fracture, suspicious osteolytic lesion, or suspicious osteoblastic lesion. No abnormal cord signal is identified. Evaluation of the disc levels is as follows: C1-C2: The atlantoaxial interval is intact. No significant thecal sac or foraminal stenosis.C2-C3: Chronic moderate to advanced left-sided foraminal narrowing secondary to left-sided uncovertebral hypertrophy and facet hypertrophy. Mild thecal sac stenosis (approximately 9 mm midline AP diameter, T2 axial image 10, series 7). Minimal if any right-sided foraminal narrowing.C3- C4: Prominent disc height loss. Prominent bilateral uncovertebral hypertrophy, and chronic severe bilateral foraminal narrowing. Thecal sac appears to be adequate in size.C4-C5: Moderate disc height loss, left-sided uncovertebral hypertrophy, and chronic severe left-sided foraminal narrowing. Moderate to advanced right-sided foraminal narrowing is also noted. Mild thecal sac stenosis (approximately 9.0 mm midline AP diameter, T2 axial images 18 and 19, series 7).C5-C6: Moderate disc height loss, prominent bilateral uncovertebral hypertrophy, and chronic severe bilateral foraminal narrowing, worse on the left. Mild thecal sac stenosis (approximately 9.0 mm midline AP diameter, axial image 23, series 7).C6-C7: Moderate to advanced left and moderate right-sided foraminal narrowing secondary to bilateral uncovertebral hypertrophy. Thecal sac is adequate in size.C7-T1: Moderate to advanced left-sided foraminal narrowing secondary to uncovertebral hypertrophy. No significant thecal sac stenosis or right-sided foraminal narrowing.Visualized paraspinal soft tissues are unremarkable.No incidental thyroid nodules are noted.IMPRESSION: 1.It is important to note that the current imaging is mildly degraded secondary to motion related artifact. Taking this into consideration, there is no MRIevidence for acute vertebral fracture, spondylolisthesis, abnormal marrow signal, or abnormal cord signal. 2.Mild to moderate cervical spondylosis with chronic mild thecal sac stenosis at the C2-C3, C4-C5, and C5-C6 levels as well as multilevel chronic foraminal narrowing, severe at the mid to lower cervical levels as detailed above. No acute thecal sac stenosis or foraminal narrowing.[id number] [facility]POC [id number] 16:48:46 Test Item Value Reference Range Interpretation Comments POC glucose (test code = 167 mg/dL 65-99 H Ope rator Name: Cameron [id number]) AddieDevice ID: [id number] able: [facility] Notified elevator operator Interpretation (test Abnormal code = 84639-5) [facility] MethodistECG 12 [id number] 10:43:29 Test Item Value Reference Range Interpretation Comments Ventricular rate 112 (test code = 253) Atrial rate (test 112 code = 255) GA interval (test 132 code = 266) QRSD interval (test 74 code = 260) QT interval (test 310 code = 264) QTC interval (test 423 code = 265) P axis 1 (test code 46 = 267) QRS axis 1 (test -5 code = 268) T wave axis (test 83 code = 270) EKG impression (test Sinus code = 273) tachycardia-Nonspecific T wave abnormality-Abnormal ECG-In automated comparison with ECG of 02-APR-2018 15:46,-premature supraventricular complexes are no longer present-T wave inversion no longer evident in Inferior leads-T wave inversion less evident in Anterolateral leads- Simon MethodistHemoglobin [id number] 09:49:43 Test Item Value Reference Range Interpretation Comments Hemoglobin A1C (test 6.1 % 4-5.6 H HbA1c c utoffs for code = 23502-9) diagnosing diabetes:4.0% - 5.6% = normal5.7% - 6.4% = increased risk for diabetes (prediabetes)9> =6.5% = ccnvxuob3Eonj s for glycemic contro l (ADA 2016)< 7.0% Ta rget for non adults with daphne betes. More or less stringent targe ts may be appropriate for individual cheryl ents. <7.5% Target for Children and adolescents wit h type 1 diabetes. Lab Interpretation (test Abnormal code = 98980-8) [facility] MethodistT4, [id number] 05:31:01 Test Item Value Reference Range Interpretation Comments T4, free (test code = 3024-7) 1.0 ng/dL 0.9-1.7 Mont[facility] MethodgabrielThyroid stimulating uxkzntw2765-67-03 05:30:33 Test Item Value Reference Range Interpretation Comments TSH (test code = 3016-3) 1.38 0.27- 4.20 uIU/mL [place] BrnahilbtGyoaeocn6890-62-34 03:27:35 Test Item Value Reference Range Interpretation Comments Troponin (test code 0.011 ng/mL 0-0.04 In juan nts suspected = 99926-0) of having a brook cardial infarction, darlene christian with all other appro priate clinical measur es and actions includi ng ECG and other diagn ostics as appropriate, measure Ultra TnI at 0 hrs and at 3 hrs.Myocar dial infarction VERY LIKELYThe 0 hr TnI level is > 0.10 ng/mL -------- -------- -------- --------Myocard ial infarction LIKE LYThe 0 hr TnI level is > 0.04 ng/mL and 3 hr level is increased or de creased by at least 0.0 20 ng/mL -------- -------- -------- ---Myocardial infarction VERY UNLIKELYBoth th e 0 hr and 3 hr TnI le vels <= 0.04 ng/mL(with in normal limits) OR 0 hr is > 0.04 ng/mL and 3 hr is increased OR decreased by le ss than 0.020 ng/mL [place] MethodistLipid [id number] 02:04:44 Test Item Value Reference Range Interpretation Comments Cholesterol (test 83 mg/dL <200 code = 2093-3) Triglycerides (test 69 mg/dL <150 code = 2571-8) HDL cholesterol 34 mg/dL >40 L (test code = 2085-9) LDL cholesterol 38 mg/dL <100 Result obtai mariola by direct (test code = 2089-1) LDL elvira surement Lipid panel SeeBelow Total Cholester ol (mg/dL) interpretation (test < 200 code = 64779-8) Desirable 200-239 Borderline -high >=240 Hi gh Triglyceri jim (mg/dL) <150 No rmal 150-199 Borderline-high 200-499 High >=500 Very high HDL Choles terol (mg/dL) <40 Low (male) < 40 Low (female) L DL Cholesterol (mg /dL) <100 Optimal 1 00-129 Near or above o ptimal 130-159 Borderline-high 160-189 High >=190 Very high Risk Cat ergories that modify LDL goals.Risk Catergories LDL goal (mg/dL )CHD and CHD risk equiva lent <100 (10-year risk >20%)Multiple ( 2+) risk factors < 130 (10-year risk = <20%)0-1 risk factors <160 (<10-ye ar risk) Defining levels of lipids in metabolic syndromeTriglyc erides > =150 mg/dLHDL Choles terol Men <40 mg/dL Women <40 mg/dL Non-HDL cholest joie is a second target f or therapy in personswith high triglycerides ( >=200 mg/dL) Lab Interpretation Abnormal (test code = 76073-3) [facility] MethodistUric acid [id number] 02:00:37 Test Item Value Reference Range Interpretation Comments Uric acid (test code = 3084-1) 3.4 mg/dL 3.4-7 Montes MethodistLactic acid level, SEPSIS - Now and repeat 2x every 3 hours 2020-02-06 01:57:26 Test Item Value Reference Range Interpretation Comments Lactic acid (test code = 66829-6) 1.0 mmol/L 0.5-2.2 Simon MethodistCOVID-19 qualitative [id number] 01:55:23 Test Item Value Reference Range Interpretation Comments Interpretation (test Negative results do code = 6897872) not preclude 2019-nCoV infection and should not be used as the sole basis for treatment or other patient management decisions. Negative results must be combined with clinical observations, patient history, and epidemiological information. COVID-19 qualitative Not-Detected Not-Detected PCR result (test code = 53576-0) COVID-19 qualitative See link below for C ase Number: PCR (test code = PDF Lab Report [id number]) [place] MethodistMRI Lumbar Spine Wo [id number] 22:03:38Hm Interface, Radiology Results 02/05/2020 10:06 PM CDTEXAM: MRI LUMBAR SPINE WO CONTRASTCOMPARISON: None.CLINICAL HISTORY: Back pain > 6wks conservative tx persistent sxTECHNIQUE: Multiplanar multisequence examination was performed without contrast.FINDINGS: Sagittal images demonstrate degenerative disc disease throughout lumbar spine with disc space narrowing and spondylotic changes most severe at L4-5. There is no evidence of spondylolisthesis or compression fractureAxial images demonstrate the following:L5-S1: There is diffuse annular bulging and spondylotic changes with bilateral spondylotic right.L4-5: There is diffuse annular bulging and spondylotic changes with moderateto severe multifactorial spinal canal stenosis and bilateral lateral recess stenosis.L3-4: There is annular bulging with superimposed right foraminal protrusion. There is moderate multifactorial spondylotic spinal canal stenosis and right foraminal stenosis with possible nerve root.L2-3: There is mildannular bulging and spondylotic changes without significant stenosis.L1-2: There is mild annular bulging without significant stenosis. IMPRESSION: Diffuse lumbar degenerative disc disease with disc space narrowingAnnular bulging at L3-4 with superimposed right foraminal foramen.Multifactorial moderately severe spinal canal stenosis at L4-5 and moderate stenosis at C4.Spondylotic changes at L5-S1 with foraminal stenosisNo acute compression fractureMAGRUDER MEMORIAL [facility]PITAL-[id number] MethodistB natriuretic qtknenz7728-13-05 20:07:29 Test Item Value Reference Range Interpretation Comments BNP (test code = 04013-2) 178 pg/mL 0-100 H Lab Interpretation (test code = Abnormal 58948-8) [place] MethodistComprehensive metabolic estcs7639-65-06 19:52:17 Test Item Value Reference Range Interpretation Comments Sodium (test code = 130 135- 148 mEq/L L 2951-2) Potassium (test code = 4.3 3.5- 5.0 mEq/L 2823-3) Chloride (test code = 94 98- 112 mEq/L L 5-0) CO2 (test code = 2027-) 25 24- 31 mEq/L Anion gap (test code = 11@ANIO 7- 15 mEq/L 82875-2) BUN (test code = 3094-0) 9 mg/dL 8-23 Creatinine (test code = 0.82 mg/dL 0.7-1.2 2160-0) Glucose (test code = 162 mg/dL 65-99 H 2345-7) Calcium (test code = 10.6 mg/dL 8.8-10.2 H 15988-6) Protein (test code = 7.3 g/dL 6.3-8.3 -[place] n 2885-2) 4.6-7.0 g/dL1 week 4.4-7 .6 g/dL7 months-1y ear 5.1-7 .3 g/dL1-2 years 5.6-7 .5 g/dL>3 years 6.0-8 .0 g/cL85-295 6.3-8 .3 g/dL Albumin (test code = 2.6 g/dL 3.5-5 L 175-7) A/G ratio (test code = 0.6 0.7-3.8 L 1759-0) Alkaline phosphatase 63 U/L 40-129 (test code = 6768-6) AST (test code = 1920-8) 19 U/L 10-50 ALT (test code = 1742-6) 6 U/L 5-50 Total bilirubin (test 0.6 mg/dL 0-1.2 code = 1974-2) Lab Interpretation (test Abnormal code = 12940-4) [facility] MethodistPartial thromboplastin time, fvlhgewzs3504-08-76 19:51:19 Test Item Value Reference Range Interpretation Comments PTT (test code = 38.6 23.0- 36.0 sec H PTT thera peutic range 69223-5) for unfractiona javed heparin is61.0- 112.0 seconds which corresponds to Anti-Xa0.3-0.7 U/ml. Lab Interpretation Abnormal (test code = 68291-2) Simon CruzProthrombin time with [id number] 19:50:31 Test Item Value Reference Range Interpretation Comments Prothrombin time (test 15.1 11.5- 14.5 sec H code = 5902-2) INR (test code = 1.2 [facility] Normalized Rati o (INR) is a therapeuti c monitoring tool for patients who ar e stable on oral anticoagulant t herapy. An INR of 2.0-3 .0 is suggested for d eep vein thrombosis/pulm onary embolism. Lab Interpretation Abnormal (test code = 69600-3) Simon CruzXR Chest 1 Vw Qkkbzbce1505-74-81 19:26:15Hm Interface, Radiology Results 02/05/2020 7:29 PM CDTEXAMINATION: XR CHEST 1 VW PORTABLECLINICAL HISTORY: 84 years Male SOBCOMPARISON: 04/26/2017IMPRESSION:1.Sternotomy wires are present. The heart size is normal. The aorta is atherosclerotic.2.No evidence pulmonary edema. No focal conso lidations or effusions. Minimal linear scarring is present in the lingula.3.Bony structures are slightly osteopenic. Postoperative changes related to open reduction internal fixation of a proximal lefthumeral fracture are again noted. [id number] [facility] [place] [facility] Interpretation - Not an Order 2020-02-05 18:59:16 Test Item Value Reference Range Interpretation Comments BLAKE (test code = BLAKE) Shahla Leno MD 02/07/2020 6:41 [facility] Preliminary Interpretation - Not an OrderPerformed by: Shahla Leon MDAuthorized by: Shahla Leon MD ECG reviewed by ED Physician in the absence of a production support specialist: yes Interpretation: Interpretation: abnormal Rate: ECG rate: 100 ECG rate assessment: normal Rhythm: Rhythm: sinus rhythm QRS: QRS axis: Normal QRS intervals: NormalConduction: Conduction: normal ST segments: ST segments: NormalT waves: T waves: inverted Inverted: I, aVL and V2 Lab Interpretation Abnormal (test code = 06125-9) Simon Cruz
--- OUTSIDE RECORDS SUMMARY | 2020-02-24 15:49 | XMS REPORT | Continuity of Care Document ---
:1935 Author Organization [employer] Care Team Providers Name Role Phone [employer] Unavailable Un available Problems Problem Status Onset [...] # solution 4,000 mL, 0 Refill(s), Pharmacy: [facility] [place], this is the generic of Golytely being used as a bowel prep, not Miralax simvastatin 40 40 mg = 1 Active MH mg oral tablet tab, PO, 019 Medical Bedtime, # Group 90 tab, 1 Refill(s) Acetaminophen 1 tab, PO, Active MH 325 MG / Q6H, 0 019 Medical Hydrocodone Refill(s) Group Bitartrate 10 MG Oral Tablet [Brandt 10/325] finasteride 5 mg 5 mg = [...] Number For Provider Date Date Visit Outpatient [id number] Aj 11/10 [facility] Outpatient [id number] Aj 11/10 11/11 [facility]enter [facility]iz /2018 [facility] ical [facility]y [facility] [place] Outpatient [id number] 11/11 Act [facility] n , [facility] Outpatient [id number] 11/11 11/12 Internal /2018 Medical Medicine [facility] [place] [facility] Outside [id number] 11/24 11/26 Gastroenter Medical /2018 [facility] [place] Procedures Procedure Code Date Perfomer Comments Source Colonoscopy [id number] 11/20/2018 Medical Group Cataract surgery [id number] Medic al Group Heart valvuloplasty [id number] Me dical Group [place] hernia [id number] Medical repair Group Open heart surgery [id number] Med ical Group Repair of heart [id number] Medica l valve Group Assessment and Plan [...]
--- OUTSIDE RECORDS SUMMARY | 2020-02-24 15:49 | XMS REPORT | Clinical Summary ---
:1935 Author Organization [facility] Address [address] [place] [address] Care Team Providers Name Role Phone Roge Hays MD Primary Care Provider Allergies No Known Active Allergies Medications Medication Sig Dispensed Refills Start Date End Date Status simvastatin Take 40 mg by 0 Acti ve (ZOCOR) 40 MG mouth nightly. tablet terazosin Take 10 mg by 0 Active (HYTRIN) 5 MG mouth nightly. capsule latanoprost Administer 1 0 Activ e (XALATAN) 0.005 % drop to both ophthalmic eyes nightly. solution aspirin (ECOTRIN) Take 1 tablet 90 tablet 2 02/12/2020 0 Active 81 MG enteric (81 mg total) 21 coated tablet by mouth daily for 90 days. clopidogreL Take 1 tablet 30 tablet 1 02/12/2020 03/13/20 Act randall (PLAVIX) 75 mg (75 mg total) 20 tablet by mouth daily for 30 days. docusate sodium Take 1 capsule 60 capsule 1 02/11/2020 0 Active (COLACE) 100 MG (100 mg total) 20 capsule by mouth 2 (two) times a day for [address] 1 patch 30 patch 2 02/11/2020 03/12/20 Activ e (LIDODERM) 5 % on the skin 20 daily for 30 days. Remove & Discard patch within 12 hours or as directed by pantoprazole Take 1 tablet 30 tablet 1 02/12/2020 03/13/20 Ac tive (PROTONIX) 40 MG (40 mg total) 20 EC tablet by mouth daily for 30 days. polyethylene Take 17 g by 30 packet 1 02/12/2020 03/13/20 Act randall glycol (MIRALAX) mouth daily for 20 17 gram packet 30 days. HYDROcodone-aceta Take 1 tablet 0 02/11/20 Discontinued minophen (NORCO) by mouth every 20 (Stop Taking at 10-325 mg per 6 (six) hours Di scharge) tablet as needed for moderate pain. 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 and 04/07/2018 duodenum Anemia 04/02/2018 Coronary artery disease involving lummi coronary elisabet ry 04/02/2018 Essential hypertension 04/02/2018 Type 2 diabetes mellitus 04/02/2018 Pure hypercholesterolemia 04/02/2018 Acute blood loss anemia 04/02/2018 Overview: Added automatically from request for edith romeo [id number] Carotid stenosis, right 04/25/2017 Post-operative pain 04/25/2017 Encounters Date Type Specialty Care Team Description 02/05/2020 - Hospital General Internal Leon, Lumbar pain (Primary Dx); 02/11/2020 Encounter Medicine [facility] Shannon, History of pro state cancer; Hallucinations; Hernandez, Intractable molly k pain; Jose O. Coronary artery disease involving lummi coronary artery of lummi heart without angina pectoris; MD Bertha Essential hyper tension; Pure hyperchole sterolemia 02/05/2020 Office Visit Urology Bradley, History of pros velez cancer (Primary Dx); MD Jaent Chronic bilater al low back pain without sciatica 02/05/2020 Travel 02/02/2020 Telephone Urology Janet Huerta MD after 02/23/2019 Surgical History Surgery Date Site/Laterality Comments CARDIAC SURGERY VALVE REPLACEMENT CORONARY ARTERY BYPASS GRAFT CARDIAC VALVE REPLACEMENT ENDARTERECTOMY, CAROTID Neck/Right Procedur e: RIGHT CAROTID 8 ENDARTERECTOMY; Surgeon: Royer Marina MD; Location: [facility] OR; Service: Cardiot horacic; Laterality: Righ t; Medical devices from this surgery are in t he Implants section. ESOPHAGOGASTRODUODENOSCOPY 04/04/20 N/A Proce dure: (EGD) 18 ESOPHAGOGASTRODU ODENOSCOPY (EGD) w/ ablatio n for control of bleeding and biopsies; Surgeon: Haven Armijo MD; Location: [facility] EN DOSCOPY; Service: Gastroe nterology; Laterality: N/A; [...] Assigned at Date Recorded Not on file COVID-19 Exposure Response Date Recorded In the last month, have you been in contact with No / Unsure 02/05/2020 9:44 AM CDT someone who was confirmed or suspected to have Coronavirus / COVID-19? Last Filed Vital Signs Vital Sign Reading Time Taken Comments Blood Pressure 136/63 02/11/2020 8:33 AM CDT Pulse 92 02/11/2020 8:33 AM CDT Temperature 35.7 C (96.2 F) 02/11/2020 8:33 AM CDT Respiratory Rate 18 02/11/2020 8:33 AM CDT Oxygen Saturation 97% 02/11/2020 8:33 AM CDT Inhaled Oxygen Concentration - - Weight - - Height - - Body Mass Index - - Plan of Treatment Health Maintenance Due Date Last Done Comments DIABETES: RETINAL EYE EXAM 1945 DIABETIC FOOT EXAM 1945 URINE MICROALBUMIN 1946 SHINGLES VACCINES (#1) 1986 65+ PNEUMOCOCCAL VACCINE (1 of 1 - PPSV23) 2001 INFLUENZA VACCINE 11/14/2019 Implants Implanted Type Area Stripper Opaquer Device Shelf Model / Identifier Expiration Serial / Lot Date Device Vasclr Clsr Vasoactive Intstnl Peptd 6fr Angio- Seal - [id number] Cardiovascular N/A: 12/13/2018 [id number] / Implanted: 02/04/2018 at [facility] (Quantity not on file) Implants N/A / [id number] Stent Crtd Xact Slf-Xpndbl Tprd Oleg 6-8x40mm - [id number] Periph eral or N/A: NIEVES 09/12/2020 [id number] / Implanted: 02/04/2018 at [facility] (Quantity not on file) Zach iary Stents N/A VASCULAR / DEVICES [id number] Kit Shunt Crtd Artery Rdopq Line 6in Strl [place] - [id number] Edith gical N/A: COVIDIEN 08/20/2021 [id number] / Implanted: 04/25/2017 at [facility] (Quantity not on file) Imp lants; N/A YIMI / Expanders; HEALTHCARE [id number] Extenders; Surgical Wires Catheter Thrmbtmy Neuron Max 088 Str 6fr 80x4cm - [id number] Edith gical N/A: [employer] [id number] / Implanted: 02/04/2018 at [facility] (Quantity not on file) Implants; N/A / Expanders; Extenders; Surgical Wires Fabric Vasclr Grft Velour 3in 3in 0.8cm 7.6cm Brad Francisco shield - [id number] Vascular Graft N/A: [employer] 04/14/2021 [id number] / Implanted: 04/25/2017 at [facility] (Quantity not on file) N/A RUBEN / [id number] Procedures Procedure Name Priority Date/Time Associated Comments Diagnosis PROSTATE SPECIFIC Routine 02/11/2020 6:00 Result s for this ANTIGEN AM CDT procedure are i n the results section. URINALYSIS SCREEN AND Routine 02/10/2020 9:00 Re sults for this MICROSCOPY, WITH REFLEX PM CDT proc edure are in TO CULTURE the results section. URINE CULTURE Routine 02/10/2020 9:00 Results fo r this PM CDT procedure are i n the results section. NM BONE SCAN WHOLE BODY Routine 02/09/2020 4:02 Results for this PM CDT procedure are i n the results section. NM SPECT BONE SCAN Routine 02/09/2020 4:01 Resul ts for this PM CDT procedure are i n the results section. CT ABDOMEN PELVIS W Routine 02/08/2020 3:34 Resu lts for this CONTRAST PM CDT procedure are i n the results section. HC COMPLETE BLD COUNT Routine 02/08/2020 6:00 Re sults for this W/AUTO DIFF AM CDT procedure are i n the results section. ESTIMATED GFR Routine 02/08/2020 4:00 Results fo r this AM CDT procedure are i n the results section. BASIC METABOLIC PANEL Routine 02/08/2020 4:00 Re sults for this AM CDT procedure are i n the results section. MRI THORACIC SPINE WO Routine 02/07/2020 9:21 Re sults for this CONTRAST AM CDT procedure are i n the results section. MRI CERVICAL SPINE WO Routine 02/07/2020 8:54 Re sults for this CONTRAST AM CDT procedure are i n the results section. ESTIMATED GFR Routine 02/07/2020 4:48 Results fo r this AM CDT procedure are i n the results section. BASIC METABOLIC PANEL Routine 02/07/2020 4:48 Re sults for this AM CDT procedure are i n the results section. HC COMPLETE BLD COUNT Routine 02/07/2020 4:48 Re sults for this W/AUTO DIFF AM CDT procedure are i n the results section. POC GLUCOSE Routine 02/06/2020 4:47 Results for this PM CDT procedure are i n the results section. POC GLUCOSE Routine 02/06/2020 12:12 Results for this PM CDT procedure are i n the results section. POC GLUCOSE Routine 02/06/2020 7:28 Results for this AM CDT procedure are i n the results section. ESTIMATED GFR Routine 02/06/2020 1:09 Results fo r this AM CDT procedure are i n the results section. HEPARIN PF4 ANTIBODY Routine 02/06/2020 1:09 Res ults for this (IGG) AM CDT procedure are i n the results section. URIC ACID LEVEL Routine 02/06/2020 1:09 Results for this AM CDT procedure are i n the results section. T4, FREE Routine 02/06/2020 1:09 Results for this AM CDT procedure are i n the results section. THYROID STIMULATING Routine 02/06/2020 1:09 Resu lts for this HORMONE AM CDT procedure are i n the results section. LIPID PANEL Routine 02/06/2020 1:09 Results for this AM CDT procedure are i n the results section. HEMOGLOBIN A1C Routine 02/06/2020 1:09 Results f or this AM CDT procedure are i n the results section. BASIC METABOLIC PANEL Routine 02/06/2020 1:09 Re sults for this AM CDT procedure are i n the results section. HC COMPLETE BLD COUNT Routine 02/06/2020 1:09 Re sults for this W/AUTO DIFF AM CDT procedure are i n the results section. TROPONIN Timed 02/06/2020 1:09 Results for this AM CDT procedure are i n the results section. LACTIC ACID LEVEL, Timed 02/06/2020 1:09 Resul ts for this SEPSIS - NOW AND REPEAT AM CDT proc edure are in 2X EVERY 3 HOURS the results section. MRI LUMBAR SPINE WO STAT 02/05/2020 9:40 Resu lts for this CONTRAST PM CDT procedure are i n the results section. BLOOD CULTURE, AEROBIC Routine 02/05/2020 8:09 R esults for this & ANAEROBIC PM CDT procedure are i n the results section. XR CHEST 1 VW PORTABLE STAT 02/05/2020 7:24 R esults for this PM CDT procedure are i n the results section. BLOOD CULTURE, AEROBIC Routine 02/05/2020 7:19 R esults for this & ANAEROBIC PM CDT procedure are i n the results section. ESTIMATED GFR STAT 02/05/2020 7:09 Results fo r this PM CDT procedure are i n the results section. B NATRIURETIC PEPTIDE STAT 02/05/2020 7:09 Re sults for this PM CDT procedure are i n the results section. TROPONIN STAT 02/05/2020 7:09 Results for this PM CDT procedure are i n the results section. LACTIC ACID LEVEL, STAT 02/05/2020 7:09 Resul ts for this SEPSIS - NOW AND REPEAT PM CDT proc edure are in 2X EVERY 3 HOURS the results section. COMPREHENSIVE METABOLIC STAT 02/05/2020 7:09 Results for this PANEL PM CDT procedure are i n the results section. PARTIAL THROMBOPLASTIN STAT 02/05/2020 7:09 R esults for this TIME (PTT) PM CDT procedure are i n the results section. PROTHROMBIN TIME WITH STAT 02/05/2020 7:09 Re sults for this INR PM CDT procedure are i n the results section. HC COMPLETE BLD COUNT STAT 02/05/2020 7:09 Re sults for this W/AUTO DIFF PM CDT procedure are i n the results section. ECG ED PRELIMINARY Routine 02/05/2020 6:59 Resul ts for this INTERPRETATION PM CDT procedure are in the results section. COVID-19 QUALITATIVE STAT 02/05/2020 6:58 Res ults for this PCR PM CDT procedure are i n the results section. ECG 12-LEAD STAT 02/05/2020 5:37 Results for this PM CDT procedure are i n the results section. PROSTATE SPECIFIC Routine 02/05/2020 11:33 History of Result s for this ANTIGEN AM CDT prostate cancer procedure ar e in the results section. after 02/23/2019 Results Prostate specific antigen (02/11/2020 6:00 AM CDT)Only the most recent of2 resultswithin the time period is included. PSA 1.4 0.0 - 4.0 [facility] Comment: ng/mL HOSPITAL The PATRICIA 8000 PSA immunoassay was used. Results obtained with different assay methods or kits should not be used interchangeably and may be differen t. Specimen Plasma Performing Organization Address City/[facility] Phon e Number [facility] DEPARTMENT OF PATHOLOGY AND [address] [place] [address] [phone] [address] Urinalysis screen and microscopy, with reflex to culture (02/10/2020 9:00 PM CDT) Pathologist Sig nature Specimen site Clean catch [facility] Color, UA Yellow [facility] Appearance, UA Cloudy [facility] Specific gravity, 1.011 1.001 - 1.035 [facility] pH, UA 7.0 5.0 - 8.5 [facility] Protein, UA Negative Negative [facility] Glucose, UA Negative Negative [facility] Ketones, UA Negative Negative [facility] Bilirubin, UA Negative Negative [facility] Blood, UA Negative Negative [facility] Nitrite, UA Negative Negative [facility] Urobilinogen, UA 4.0 (A) <2.0 [facility] Leukocyte esterase, Negative Negative [facility] WBC, UA <1 0 - 1 /HPF [facility] RBC, UA <1 0 - 5 /HPF [facility] Bacteria, UA None seen None seen [facility] Yeast, UA None seen [facility] Yeast with None seen [facility] pseudohyphae, HOSPITAL Amorphous crystals Few [facility] Specimen Urine Performing Organization Address City/[facility] Phon e Number [facility] DEPARTMENT OF PATHOLOGY AND [address] [place] [address] [phone] [address] Urine culture (02/10/2020 9:00 PM CDT) Pathologist Sig nature Urine culture SEE COMMENTComment: [facility] Bacteriuria screen HOSPITAL negative. Specimen Performing Organization Address City/[facility] Phon e Number [facility] DEPARTMENT OF PATHOLOGY AND [address] [place] [phone] [facility] MEDICINE [facility] [address] [place] [address] NM Bone Scan Whole Body (02/09/2020 4:02 PM CDT) Specimen Narrative Performed At PROCEDURE: NM BONE SCAN WHOLE BODY, NM SPECT BONE SCAN [facility] INDICATION: Abnormal x-ray. COMPARISON: MRI of the thoracolumbar s pine 02/07/2020. TECHNIQUE: Approximately three hours after the IV admi nistration of 25 mCi of Tc-99m labeled MDP, routine whole body planar b one scanning was performed in the anterior and posterior projections. SPECT imaging of the lower thoracic and lumbar spine was obtained. FINDINGS: Mild uptake is present at T9/T10 and L4/L5 , most compatible with degenerative change. Mild degenerative uptake i s also noted in the shoulders. No intense uptake is seen to suggest underlying osteomyelitis. IMPRESSION: 1. Degenerative uptake in the thoracol umbar spine. [id number] Procedure Note Interface, Radiology Results [facility] - 02/09/2020 6:39 PM CDT PROCEDURE: NM BONE SCAN WHOLE BODY, NM SPECT BONE SCAN INDICATION: Abnormal x-ray. COMPARISON: MRI of the thoracolumbar sp ine 02/07/2020. TECHNIQUE: Approximately three hours aft er the IV administration of 25 mCi of Tc-99m labeled MDP, routine whole body planar bone scanning was performed in the anterior and posterior projections. SPECT imaging of the lower thoracic and lumbar spine was obtained. FINDINGS: Mild uptake is present at T9/ T10 and L4/L5, most compatible with degenerative change. Mild degenerative uptake is also noted in the shoulders. No intense uptake is seen to suggest underlying osteomyelitis. IMPRESSION: 1. Degenerative uptake in the thoracolu mbar spine. [id number] Performing Organization Address City/State/ZIP Code Phon e Number [facility] [address] [place] [address] NM Spect Bone Scan (02/09/2020 4:01 PM CDT) Specimen Narrative Performed At PROCEDURE: NM BONE SCAN WHOLE BODY, NM SPECT BONE SCAN [facility] INDICATION: Abnormal x-ray. COMPARISON: MRI of the thoracolumbar s pine 02/07/2020. TECHNIQUE: Approximately three hours after the IV admi nistration of 25 mCi of Tc-99m labeled MDP, routine whole body planar b one scanning was performed in the anterior and posterior projections. SPECT imaging of the lower thoracic and lumbar spine was obtained. FINDINGS: Mild uptake is present at T9/T10 and L4/L5 , most compatible with degenerative change. Mild degenerative uptake i s also noted in the shoulders. No intense uptake is seen to suggest underlying osteomyelitis. IMPRESSION: 1. Degenerative uptake in the thoracol umbar spine. [id number] Procedure Note Hm Interface, Radiology Results Incoming - 02/09/2020 6:39 PM CDT PROCEDURE: NM BONE SCAN WHOLE BODY, NM SPECT BONE SCAN INDICATION: Abnormal x-ray. COMPARISON: MRI of the thoracolumbar sp ine 02/07/2020. TECHNIQUE: Approximately three hours aft er the IV administration of 25 mCi of Tc-99m labeled MDP, routine whole body planar bone scanning was performed in the anterior and posterior projections. SPECT imaging of the lower thoracic and lumbar spine was obtained. FINDINGS: Mild uptake is present at T9/ T10 and L4/L5, most compatible with degenerative change. Mild degenerative uptake is also noted in the shoulders. No intense uptake is seen to suggest underlying osteomyelitis. IMPRESSION: 1. Degenerative uptake in the thoracolu mbar spine. [id number] Performing Organization Address City/State/ZIP Code Phon e Number [facility] [address] [place] [address] CT Abdomen Pelvis W Contrast (02/08/2020 3:34 PM CDT) Specimen Narrative Performed At EXAMINATION: CT ABDOMEN PELVIS W CONTR AST HM [facility] CLINICAL HISTORY: Abd pain unspecifi ed COMPARISON: September 13, 2016 TECHNIQUE: Multiple axial CT images of the Abdomen and pelvis were obtained With IV contrast Oral contrast was administ ered. . Sagittal and coronal reconstructions were done. CT imaging was performed with iterative reconstruction technique and/or automated exposure control to reduce rad iation dose. FINDINGS: HEPATOBILIARY: No focal hepatic lesion s. No biliary ductal dilation.. GALLBLADDER: Cholelithiasis without sign s of cholecystitis. SPLEEN: No splenomegaly. PANCREAS: No focal masses or ductal di lation. ADRENALS: Bilateral adrenal nodules has the density of adenomas on the prior exam KIDNEYS: There is a stable either calyceal stone in the right kidney. No stones are seen in the left kidney.. No renal mass. No hydronephrosis bilaterally PERITONEUM/RETROPERITONEUM: No free ai r or fluid. No lymphadenopathy. ABDOMINAL AORTA/IVC: No aneurysm or diss ection. GI TRACT: The bowel demonstrate no distention or wal l thickening. There are no signs of appendicitis. No s igns of diverticulitis. PELVIC ORGANS/BLADDER: No acute abnorm ality. BONES AND SOFT TISSUES: No acute abnor mality. VISUALIZED LOWER CHEST: No acute abnormality. There is some scarring of the lung bases. Heart is enlarged with atherosclerosis coronary arteries. There is a small hiatal hernia . IMPRESSION: No acute abnormality. [id number] Procedure Note Hm Interface, Radiology Results Incoming - 02/08/2020 3:48 PM CDT EXAMINATION: CT ABDOMEN PELVIS W CONTRAST CLINICAL HISTORY: Abd pain unspecified COMPARISON: September 13, 2016 TECHNIQUE: Multiple axial CT images of t he Abdomen and pelvis were obtained With IV contrast Oral contrast was administered. . Sagittal and coronal reconstructions were done. CT imaging was performed with iterative reconstruction technique and/or automated exposure control to reduce radiation dose. FINDINGS: HEPATOBILIARY: No focal hepatic lesions . No biliary ductal dilation.. GALLBLADDER: Cholelithiasis without sign s of cholecystitis. SPLEEN: No splenomegaly. PANCREAS: No focal masses or ductal dil ation. ADRENALS: Bilateral adrenal nodules has the density of adenomas on the prior exam KIDNEYS: There is a stable either calyc eal stone in the right kidney. No stones are seen in the left kidney.. No renal mass. No hydronephrosis bilaterally PERITONEUM/RETROPERITONEUM: No free air or fluid. No lymphadenopathy. ABDOMINAL AORTA/IVC: No aneurysm or diss ection. GI TRACT: The bowel demonstrate no dist ention or wall thickening. There are no signs of appendicitis. No signs of diverticulitis. PELVIC ORGANS/BLADDER: No acute abnorma lity. BONES AND SOFT TISSUES: No acute abnorm ality. VISUALIZED LOWER CHEST: No acute abnorma lity. There is some scarring of the lung bases. Heart is enlarged with atherosclerosis coronary arteries. There is a small hiatal hernia. IMPRESSION: No acute abnormality. [id number] Performing Organization Address City/State/ZIP Code Phon e Number [facility] [address] [place] [address] CBC with platelet and differential (02/08/2020 6:00 AM CDT)Only the most recent of4 resultswithin the time period is included. WBC 4.64 4.50 - 11.00 [facility] k/uL HOSPITAL RBC 3.38 (L) 4.40 - 6.00 [facility] m/uL HOSPITAL HGB 9.6 (L) 14.0 - 18.0 [facility] g/dL HOSPITAL HCT 32.3 (L) 41.0 - 51.0 % [facility] MCV 95.6 82.0 - 100.0 [facility] MCH 28.4 27.0 - 34.0 pg [facility] MCHC 29.7 (L) 31.0 - 37.0 [facility] g/dL HOSPITAL RDW - SD 48.3 37.0 - 55.0 fL [facility] MPV 8.9 8.8 - 13.2 fL [facility] Platelet count 280 150 - 400 k/uL [facility] Nucleated RBC 0.00 /100 WBC [facility] Neutrophils 67.7 39.0 - 69.0 % [facility] Lymphocytes 17.5 (L) 25.0 - 45.0 % [facility] Monocytes 11.6 (H) 0.0 - 10.0 % [facility] Eosinophils 2.4 0.0 - 5.0 % [facility] Basophils 0.4 0.0 - 1.0 % [facility] Immature granulocytes 0.4Comment: 0.0 - 1.0 % [facility] "Immature [facility] granulocytes" (promyelocytes , myelocytes, metamyelocytes ) Specimen Plasma Performing Organization Address City/State/ZIP Code Phon e Number [facility] DEPARTMENT OF PATHOLOGY AND [address] [place], [place] [phone] GENOMIC MEDICINE [address] [address] Estimated GFR (02/08/2020 4:00 AM CDT)Only the most recent of4 resultswithin the time period is included. Estimated GFR 88 mL/min/1.73 [facility] Comment: m2 HOSPITAL Catergory Units Interpretation G1 >=90 Normal or high G2 60-89 Mildly decreased G3a 45-59 Mildly to moderately decreas ed G3b 30-44 Moderately to severely decre ased G4 15-29 Severely decreased G5 <15 Kidney failure The eGFR was calculated using the Chronic Kidney Disea se Epidemiology Collaboration (CKD-EPI) equation. Interpretation is based on recommendations of the National Kidney Foundation-Kidney Disease Outcomes Ankit lity Initiative (NKF-KDOQI) published in 2014. Specimen Plasma Performing Organization Address City/[facility] Phon e Number [facility] DEPARTMENT OF PATHOLOGY AND [address] [place], [place] [phone] [place] [id number] [place] [address] Basic metabolic panel (02/08/2020 4:00 AM CDT)Only the most recent of3 results within the time period is included. Pathologist Sig nature Sodium 135 135 - 148 mEq/L [facility] Potassium 4.9 3.5 - 5.0 mEq/L [facility] Chloride 100 98 - 112 mEq/L [facility] CO2 21 (L) 24 - 31 mEq/L [facility] Anion gap 14@ANIO 7 - 15 mEq/L [facility] BUN 8 8 - 23 mg/dL [facility] Creatinine 0.67 (L) 0.70 - 1.20 mg/dL [facility] Glucose 125 (H) 65 - 99 mg/dL [facility] Calcium 11.1 (H) 8.8 - 10.2 mg/dL [facility] Specimen Plasma Performing Organization Address City/[facility] Code Phon e Number [facility] DEPARTMENT OF PATHOLOGY AND [address] [place], [place] [phone] [address] MRI Thoracic Spine Wo Contrast (02/07/2020 9:21 AM CDT) Specimen Narrative Performed At This result has an attachment that is no t available. EXAM: MRI THORACIC SPINE WO CONTRAST [facility] CLINICAL HISTORY: Severe mid back pain TECHNIQUE: Multiplanar multisequence non contrast enhanced examination was performed of the thoracic spine. COMPARISON: None FINDINGS: It is important to note that current carrie ging is degraded secondary to motion related artifact. There is abnormal T1 hypointense/STIR hy perintense osseous signal abnormality at the T9-T10 levels, [...] no retropulsion or cord compromise at this level. Thoracic alignment, vertebral body heigh t, and bone marrow signal are otherwise within normal limits. There is otherwise no evidence of acute fracture, suspicious osteolytic lesion, or suspicious osteoblastic lesion. Mild thoracic spondylosis is identified with scattered mild disc height loss and anterolateral osteophyte formation, particularly at the mid thoracic spine. A few scattered subtle central disc bulges an d shallow protrusions are seen. Furthermore, subtle scattered facet hypertrophy is identifie d. There is impression upon the thecal sac without evidence of significant thecal sac stenosis. No acute foraminal narrowing. No abnormal cord signal is identified. Visualized paraspinal soft tissues are unremarkable. No incidental thyroid nodules are noted. IMPRESSION: 1.There is abnormal edematous signal abn ormality at the T9-T10 levels, particularly inferior aspect of T9. Findings likely reflective of prominent Modic type I degenerative edema; an associated compression deformity of the inferior aspect of the T9 vertebral body cannot be entirely exclud ed if the history of recent trauma. No significant abnormal disc signal nor surrounding inflammatory changes are present to suggest discitis-osteomyelitis. Of not e, there is no retropulsion or cord compromise at this level. 2.Otherwise no MRI evidence for acute ve rtebral fracture, spondylolisthesis, abnormal marrow signal, or abnormal cord signal. [id number] Procedure Note Hm Interface, Radiology Results - 02/07/2020 1:11 PM CDT EXAM: MRI THORACIC SPINE WO CONTRAST CLINICAL HISTORY: Severe mid back pain TECHNIQUE: Multiplanar multisequence non contrast enhanced examination was performed of the thoracic spine. COMPARISON: None FINDINGS: It is important to note that current carrie ging is degraded secondary to motion related artifact. There is abnormal T1 hypointense/STIR hy perintense osseous signal abnormality at the T9-T10 levels, particularly inferior aspect of T9. Findings likely reflective of prominent Modic type I degenerative edema; an associated compression deformity of t he inferior aspect of the T9 vertebral body cannot be entirely excluded if the history of recent trauma. No significant abnormal disc signal nor surrounding inflammatory changes are present to suggest discitis-osteomyelitis. Of note, there is no retropulsion or cord compromise at this level. Thoracic alignment, vertebral body heigh t, and bone marrow signal are otherwise within normal limits. There is otherwise no evidence of acute fracture, suspicious osteolytic lesion, or suspicious osteoblastic lesion. Mild thoracic spondylosis is identified with scattered mild disc height loss and anterolateral osteophyte formation, particularly at the mid thoracic spine. A few scattered subtle central disc bulges and shallow protrusions are seen. Furthermore, subtl e scattered facet hypertrophy is identifie d. There is impression upon the thecal sac without evidence of significant thecal sac stenosis. No acute foraminal narrowing. No abnormal cord signal is identified. Visualized paraspinal soft tissues are u nremarkable. No incidental thyroid nodules are noted. IMPRESSION: 1.There is abnormal edematous signal abn ormality at the T9-T10 levels, particularly inferior aspect of T9. Findings likely reflective of prominent Modic type I degenerative edema; an associated compression deformity of the inferior aspect of the T9 vertebral body cannot be entirely exclud ed if the history of recent trauma. No significant abnormal disc signal nor surrounding inflammatory changes are present to suggest discitis-osteomyelitis. Of note, there is no retropulsion or cord compromise at this level. 2.Otherwise no MRI evidence for acute ve rtebral fracture, spondylolisthesis, abnormal marrow signal, or abnormal cord signal. [id number] Performing Organization Address City/State/ZIP Code Phon e Number [facility] [address] [place] [address] MRI Cervical Spine Wo Contrast (02/07/2020 8:54 AM CDT) Specimen Narrative Performed At EXAM: MRI CERVICAL SPINE WO CONTRAST [facility] CLINICAL HISTORY: Neck pain chronic normal neuro exam neg xray TECHNIQUE: Multiplanar multisequence noncontrast enhan tequila examination was performed of the cervical spine. COMPARISON: CTA neck, 04/03/2017 FINDINGS: It is important to note that imaging is mildly degrade d secondary to motion related artifact. Taking this into consideration, a mild amount of man s is identified dorsal to the atlantoaxial joint with impression upon the ventral thecal sac at this level. The cervicomedullary junction is ot herwise unremarkable in appearance. There is mild straightening of cervical lordotic curva ture which is likely partly due to patient positioning . Cervical lordotic alignment, vertebral body height, an d bone marrow signal are otherwise within normal limits. There is no evidence of acute fracture, suspicious osteolytic lesion, or suspicious osteoblastic lesion. No abnormal cord signal is identified. Evaluation of the disc levels is as foll ows: C1-C2: The atlantoaxial interval is intact. No signi ficant thecal sac or foraminal stenosis. C2-C3: Chronic moderate to advanced left-sided foramin al narrowing secondary to left-sided uncovertebral hypertrophy and facet hypertrophy. Mild thecal sac stenosis (approximately 9 mm midline A P diameter, T2 axial image 10, series 7). Minimal if an y right-sided foraminal narrowing. C3-C4: Prominent disc height loss. Prominent bilateral uncovertebral hypertrophy, and chronic severe bilateral foraminal na rrowing. Thecal sac appears to be adequate in size. C4-C5: Moderate disc height loss, left-sided uncoverte bral hypertrophy, and chronic severe left-sided foraminal narrowing. Mod erate to advanced right-sided foraminal narrowing is also noted. Mild th ecal sac stenosis (approximately 9.0 mm midline AP diameter, T2 axial images 18 and 19, ser ies 7). C5-C6: Moderate disc height loss, prominent bilateral uncovertebral hypertrophy, and chronic severe bilateral foraminal na rrowing, worse on the left. Mild thecal sac stenosis (approximately 9.0 mm midline AP diameter, axial image 23, series 7). C6-C7: Moderate to advanced left and moderate right-si ded foraminal narrowing secondary to bilateral uncovertebral hypertr ophy. Thecal sac is adequate in size. C7-T1: Moderate to advanced left-sided foraminal narro wing secondary to uncovertebral hypertrophy. No significant thecal sac s tenosis or right-sided foraminal narrowing. Visualized paraspinal soft tissues are u nremarkable. No incidental thyroid nodules are noted. IMPRESSION: 1.It is important to note that the current imaging is mildly degraded secondary to motion related artifact. Taking this into consideration, there is no MRI evidence for acute vertebral fracture, spondylolisthesis, abnormal marrow signa l, or abnormal cord signal. 2.Mild to moderate cervical spondylosis with chronic m ild thecal sac stenosis at the C2-C3, C4-C5, and C5-C6 levels as well as multilevel chronic foraminal narrowing, severe at the mid to lowe r cervical levels as detailed above. No acute thecal sac stenosis or foraminal narrowing. [id number] Procedure Note Hm Interface, Radiology Results - 02/07/2020 9:34 AM CDT EXAM: MRI CERVICAL SPINE WO CONTRAST CLINICAL HISTORY: Neck pain chronic no rmal neuro exam neg xray TECHNIQUE: Multiplanar multisequence non contrast enhanced examination was performed of the cervical spine. COMPARISON: CTA neck, 04/03/2017 FINDINGS: It is important to note that imaging is mildly degraded secondary to motion related artifact. Taking this into consideration, a mild a mount of pannus is identified dorsal to the atlantoaxial joint with impression upon the ventral thecal sac at this level. The cervicomedullary junction is otherwise unremarkable in appearance. There is mild straightening of cervical lordotic curvature which is likely partly due to patient positioning. Cervical lordotic alignment, vertebral b jin height, and bone marrow signal are otherwise within normal limits. There is no evidence of acute fracture, suspicious osteolytic lesion, or suspicious osteoblastic lesion. No abnormal cord signal is identified. Evaluation of the disc levels is as foll ows: C1-C2: The atlantoaxial interval is int act. No significant thecal sac or foraminal stenosis. C2-C3: Chronic moderate to advanced left -sided foraminal narrowing secondary to left-sided uncovertebral hypertrophy and facet hypertrophy. Mild thecal sac stenosis (approximately 9 mm midline AP diameter, T2 axial image 10, series 7). Minimal if any right-sided foraminal narrowing. C3-C4: Prominent disc height loss. Promi nent bilateral uncovertebral hypertrophy, and chronic severe bilateral foraminal narrowing. Thecal sac appears to be adequate in size. C4-C5: Moderate disc height loss, left-s ided uncovertebral hypertrophy, and chronic severe left-sided foraminal narrowing. Moderate to advanced right-sided foraminal narrowing is also noted. Mild thecal sac stenosis (approximately 9.0 mm midline AP diameter, T2 axial images 18 and 19, ser ies 7). C5-C6: Moderate disc height loss, promin ent bilateral uncovertebral hypertrophy, and chronic severe bilateral foraminal narrowing, worse on the left. Mild thecal sac stenosis (approximately 9.0 mm midline AP diameter, axial image 23, series 7). C6-C7: Moderate to advanced left and mod erate right-sided foraminal narrowing secondary to bilateral uncovertebral hypertrophy. Thecal sac is adequate in size. C7-T1: Moderate to advanced left-sided f oraminal narrowing secondary to uncovertebral hypertrophy. No significant thecal sac stenosis or right-sided foraminal narrowing. Visualized paraspinal soft tissues are u nremarkable. No incidental thyroid nodules are noted. IMPRESSION: 1.It is important to note that the curre nt imaging is mildly degraded secondary to motion related artifact. Taking this into consideration, there is no MRI evidence for acute vertebral fracture, spondylolisthesis, abnormal marrow signal, or abnormal cord signal. 2.Mild to moderate cervical spondylosis with chronic mild thecal sac stenosis at the C2-C3, C4-C5, and C5-C6 levels as well as multilevel chronic foraminal narrowing, severe at the mid to lower cervical levels as detailed above. No acute thecal sac stenosis or foraminal narrowing. [id number] Performing Organization Address [facility] Phon e Number [address] [address] POC glucose (02/06/2020 4:47 PM CDT)Only the most recent of3 resultswithin the time period is included. Pathologist Sig [facility] POC glucose 167 (H) 65 - 99 mg/dL [facility] Comment: HOSPITAL Custom Ski Maker Name: Cameron Gomez Device ID: [id number] Chartable: [facility] Notified RN Specimen Blood Performing Organization Address [facility] Phon e Number [facility] DEPARTMENT OF PATHOLOGY AND [address] [place] [address] [phone] [address] Lactic acid level, SEPSIS - Now and repeat 2x every 3 hours (02/06/2020 1:09 AM CDT)Only the most recent of2 resultswithin the time period is included. Pathologist Health system Lactic acid 1.0 0.5 - 2.2 mmol/L [facility] AL Specimen Blood Performing Organization Address [facility] Phon e Number [facility] DEPARTMENT OF PATHOLOGY AND [address] [place] [address] [phone] [address] Heparin PF4 antibody (IgG) (02/06/2020 1:09 AM CDT) Pathologist Sig [facility] Heparin PF4 Ab OD 0.396 0.000 - 0.399 [facility] Heparin PF4 Ab, IgG Negative Negative [facility] Specimen Blood Performing Organization Address [facility] Phon e Number [facility] DEPARTMENT OF PATHOLOGY AND [address] [place] [address] [phone] [address] Troponin (02/06/2020 1:09 AM CDT)Only the most recent of2 resultswithin the time period is included. Troponin 0.011 0.000 - 0.040 [facility] Comment: ng/mL HOSPITAL In patients suspected of having a myocardial infarctio n, along with all other appropriate clinical measures and actions includ ing ECG and other diagnostics as appropriate, measure Ultra TnI at 0 hrs and at 3 hrs. Myocardial infarction VERY LIKELY The 0 hr TnI level is > 0.10 ng/mL Myocardial infarction LIKELY The 0 hr TnI level is > 0.04 ng/mL and 3 hr level is i ncreased or decreased by at least 0.020 ng/mL Myocardial infarction VERY UNLIKELY Both the 0 hr and 3 hr TnI levels <= 0.04 ng/mL(within normal limits) OR 0 hr is > 0.04 ng/mL and 3 hr is increased OR decreased by less than 0.020 ng/mL Specimen Plasma Performing Organization Address City/[facility] Code Phon e Number [facility] DEPARTMENT OF PATHOLOGY AND [address] [place] [address] [phone] [address] Uric acid level (02/06/2020 1:09 AM CDT) Pathologist Michael mcintyre Uric acid 3.4 3.4 - 7.0 mg/dL [facility] L Specimen Plasma Performing Organization Address City/[facility] Phon e Number [facility] DEPARTMENT OF PATHOLOGY AND [address] [place] [address] [phone] [place] [address] Thyroid stimulating hormone (02/06/2020 1:09 AM CDT) Pathologist Sig nature TSH 1.38 0.27 - 4.20 uIU/mL [facility] ITAL Specimen Plasma Performing Organization Address City/[facility]/ZIP [facility] Phon e Number [facility] DEPARTMENT OF PATHOLOGY AND [address] [place] [address] [phone] [address] T4, free (02/06/2020 1:09 AM CDT) Pathologist Sig nature T4, free 1.0 0.9 - 1.7 ng/dL [facility] L Specimen Plasma Performing Organization Address [facility] Phon e Number [facility] DEPARTMENT OF PATHOLOGY AND [address] [place] [address] [phone] [address] Hemoglobin A1c (02/06/2020 1:09 AM CDT) Hemoglobin A1C 6.1 (H) 4.0 - 5.6 % [facility] Comment: HOSPITAL HbA1c cutoffs for diagnosing diabetes: 4.0% - 5.6% = normal 5.7% - 6.4% = increased risk for diabetes (prediabetes )9 >=6.5% = diabetes9 Goals for glycemic control (ADA 2016) < 7.0% Target for non adults with diabetes. More or less stringent targets may be appropriate for individual patients. <7.5% Target for Children and adolescents with type 1 diabetes. Specimen Blood Performing Organization Address City/[facility] Phon e Number [facility] DEPARTMENT OF PATHOLOGY AND [address] [place] [address] [phone] [address] Lipid panel (02/06/2020 1:09 AM CDT) Cholesterol 83 <200 mg/dL [facility] Triglycerides 69 <150 mg/dL [facility] HDL cholesterol 34 (L) >40 mg/dL [facility] LDL cholesterol 38Comment: Result <100 mg/dL [facility] obtained by direct RELIGION LDL measurement [facility] Lipid panel [facility] interpretation Comment: RELIGION Total Cholesterol (mg/dL) HOSPIT AL <200 Desirable 200-239 Borderline-high >=240 High Triglycerides (mg/dL) <150 Normal 150-199 Borderline-high 200-499 High >=500 Very high HDL Cholesterol (mg/dL) <40 Low (male) <40 Low (female) LDL Cholesterol (mg/dL) <100 Optimal 100-129 Near or above optimal 130-159 Borderline-high 160-189 High >=190 Very high Risk Catergories that modify LDL goals. Risk Catergories LDL goal (mg/d L) CHD and CHD risk equivalent <100 (10-year risk >20%) Multiple (2+) risk factors <130 (10-year risk =<20%) 0-1 risk factors <160 (<10-year risk) Defining levels of lipids in metabolic syndrome Triglycerides >=150 mg/dL HDL Cholesterol Men <40 mg /dL Women <40 mg/ dL Non-HDL cholesterol is a second target for therapy in persons with high triglycerides (>=200 mg/dL) Specimen Plasma Performing Organization Address City/State/ZIP Code Phon e Number [facility] DEPARTMENT OF PATHOLOGY AND [address] [phone] [facility] MEDICINE [facility] [address] [place] [address] MRI Lumbar Spine Wo Contrast (02/05/2020 9:40 PM CDT) Specimen Narrative Performed At This result has an attachment that is no t available. [facility] EXAM: MRI LUMBAR SPINE WO CONTRAST COMPARISON: None. CLINICAL HISTORY: Back pain > 6wks conservative t x persistent sx TECHNIQUE: Multiplanar multisequence exa mination was performed without contrast. FINDINGS: Sagittal images demonstrate degenerative disc disease throughout lumbar spine with disc space narrowing and spondylotic changes most severe at L4-5. There is no evidence of spondylolisthesis or compression fracture Axial images demonstrate the following: L5-S1: There is diffuse annular bulging and spondylotic changes with bilateral spondylotic right. L4-5: There is diffuse annular bulging a nd spondylotic changes with moderate to severe multifactorial spinal canal stenosis and bilateral lateral recess stenosis. L3-4: There is annular bulging with supe rimposed right foraminal protrusion. There is moderate multifactorial spondylotic spinal canal stenosis and right foraminal stenosis with possible nerve root. L2-3: There is mild annular bulging and spondylotic changes without significant stenosis. L1-2: There is mild annular bulging without significan t stenosis. IMPRESSION: Diffuse lumbar degenerative disc disease with disc spa ce narrowing Annular bulging at L3-4 with superimposed right forami nal foramen. Multifactorial moderately severe spinal canal stenosis at L4-5 and moderate stenosis at C4. Spondylotic changes at L5-S1 with foraminal stenosis No acute compression fracture [id number] Procedure Note Hm Interface, Radiology Results Incoming - 02/05/2020 10:06 PM CDT EXAM: MRI LUMBAR SPINE WO CONTRAST COMPARISON: None. CLINICAL HISTORY: Back pain > 6wks co nservative tx persistent sx TECHNIQUE: Multiplanar multisequence exa mination was performed without contrast. FINDINGS: Sagittal images demonstrate degenerative disc disease throughout lumbar spine with disc space narrowing and spondylotic changes most severe at L4-5. There is no evidence of spondylolisthesis or compression fracture Axial images demonstrate the following: L5-S1: There is diffuse annular bulging and spondylotic changes with bilateral spondylotic right. L4-5: There is diffuse annular bulging a nd spondylotic changes with moderate to severe multifactorial spinal canal stenosis and bilateral lateral recess stenosis. L3-4: There is annular bulging with supe rimposed right foraminal protrusion. There is moderate multifactorial spondylotic spinal canal stenosis and right foraminal stenosis with possible nerve root. L2-3: There is mild annular bulging and spondylotic changes without significant stenosis. L1-2: There is mild annular bulging with out significant stenosis. IMPRESSION: Diffuse lumbar degenerative disc disease with disc space narrowing Annular bulging at L3-4 with superimpose d right foraminal foramen. Multifactorial moderately severe spinal canal stenosis at L4-5 and moderate stenosis at C4. Spondylotic changes at L5-S1 with forami nal stenosis No acute compression fracture [id number] Performing Organization Address City/State/ZIP Code Phon e Number [facility] [address] [place] [address] Blood culture, aerobic & anaerobic (02/05/2020 8:09 PM CDT)Only the most recent of2 resultswithin the time period is included. Blood culture Streptococcus bovis group PHILLIP METHOD IST isolate Aer/Suzette bottles: HOSPITAL Organism failed to thrive for susceptibility testing. (A) Comment: Specimen Information Specimen Source: Blood Specimen Site: Forearm, right Specimen Blood - Forearm, right Performing Organization Address City/State/ZIP Code Phon e Number [facility] DEPARTMENT OF PATHOLOGY AND [address] [place] [phone] [facility] [address] [place] [address] XR Chest 1 Vw Portable (02/05/2020 7:24 PM CDT) Specimen Narrative Performed At EXAMINATION: XR CHEST 1 VW PORTABLE [facility] CLINICAL HISTORY: 84 years Male SOB COMPARISON: 04/26/2017 IMPRESSION: 1.Sternotomy wires are present. The heart size is norm al. The aorta is atherosclerotic. 2.No evidence pulmonary edema. No focal consolidations or effusions. Minimal linear scarring is present in th e lingula. 3.Bony structures are slightly osteopenic. Postoperati ve changes related to open reduction internal fixation of a proximal left humeral fracture are again noted. [id number] Procedure Note Interface, Radiology Results Incoming - 02/05/2020 7:29 PM CDT EXAMINATION: XR CHEST 1 VW PORTABLE CLINICAL HISTORY: 84 years Male SOB COMPARISON: 04/26/2017 IMPRESSION: 1.Sternotomy wires are present. The hear t size is normal. The aorta is atherosclerotic. 2.No evidence pulmonary edema. No focal consolidations or effusions. Minimal linear scarring is present in the lingula. 3.Bony structures are slightly osteopeni c. Postoperative changes related to open reduction internal fixation of a proximal left humeral fracture are again noted. [id number] Performing Organization Address City/State/ZIP Code Phon e Number [facility] [address] [place] [id number] Partial thromboplastin time, activated (02/05/2020 7:09 PM CDT) PTT 38.6 (H) 23.0 - 36.0 [facility] Comment: [facility] PTT therapeutic range for unfractionated heparin is 61.0-112.0 seconds which corresponds to Anti-Xa 0.3-0.7 U/ml. Specimen Blood Performing Organization Address City/State/ZIP Code Phon e Number [facility] DEPARTMENT OF PATHOLOGY AND [address] [place] [address] [phone] [address] Prothrombin time with INR (02/05/2020 7:09 PM CDT) Prothrombin time 15.1 (H) 11.5 - 14.5 [facility] INR 1.2 [facility] Comment: RELIGION The International Normalized Ratio (INR) is a therapeu [facility] HOSPITAL monitoring tool for patients who are stable on oral anticoagulant therapy. An INR of 2.0-3.0 is suggested for deep vein thrombosis/pulmonary embolism. Specimen Blood Performing Organization Address City/[facility] Phon e Number [facility] DEPARTMENT OF PATHOLOGY AND [address] [place], [place] [phone] [address] B natriuretic peptide (02/05/2020 7:09 PM CDT) Pathologist Sig nature BNP 178 (H) 0 - 100 pg/mL [facility] Specimen Blood Performing Organization Address City/[facility] Phon e Number [facility] DEPARTMENT OF PATHOLOGY AND [address] [place] [address] [phone] [address] Comprehensive metabolic panel (02/05/2020 7:09 PM CDT) Sodium 130 (L) 135 - 148 [facility] mEq/L [facility] Potassium 4.3 3.5 - 5.0 [facility] mEqL [facility] Chloride 94 (L) 98 - 112 [facility] mEq/L [facility] CO2 25 24 - 31 mEq/L [facility] Anion gap 11@ANIO 7 - 15 mEq/L [facility] BUN 9 8 - 23 mg/dL [facility] Creatinine 0.82 0.70 - 1.20 [facility] mg/dL [facility] Glucose 162 (H) 65 - 99 mg/dL [facility] Calcium 10.6 (H) 8.8 - 10.2 [facility] mg/dL HOSPITAL Protein 7.3 6.3 - 8.3 [facility] Comment: g/dL [facility] - [place] 4.6-7.0 g/dL 1 week 4.4-7.6 g/dL 7 months-1year 5.1-7.3 g/dL 1-2 years 5.6-7.5 g/dL >3 years 6.0-8.0 g/dL 18-150 6.3-8.3 g/dL Albumin 2.6 (L) 3.5 - 5.0 [facility] g/dL [facility] A/G ratio 0.6 (L) 0.7 - 3.8 [facility] Alkaline phosphatase 63 40 - 129 U/L [facility] AST 19 10 - 50 U/L [facility] ALT 6 5 - 50 U/L [facility] Total bilirubin 0.6 0.0 - 1.2 [facility] mg/dL HOSPITAL Specimen Plasma Performing Organization Address [facility] Phon e Number [facility] DEPARTMENT OF PATHOLOGY AND [address] [id number] [address] [address] ECG ED Preliminary Interpretation - Not an Order (02/05/2020 6:59 PM CDT) Narrative Performed At Shahla Leon MD 0 6:41 PM ECG ED Preliminary Interpretation - Not an Order Performed by: Shahla Leon MD Authorized by: Shahla Leon MD ECG reviewed by ED Physician in the abse nce of a wad compressor operator adjuster: yes Interpretation: Interpretation: abnormal Rate: ECG rate: 100 ECG rate assessment: normal Rhythm: Rhythm: sinus rhythm QRS: QRS axis: Normal QRS intervals: Normal Conduction: Conduction: normal ST segments: ST segments: Normal T waves: T waves: inverted Inverted: I, aVL and V2 COVID-19 qualitative PCR (02/05/2020 6:58 PM CDT) Interpretation Negative results do not prec lude 2019-nCoV infection and should not be used as the sole basis for treatment or other patient management decisions. Negative results must be combined with clinical observations, patient history, and epidemiological [facility] information. [facility] COVID-19 qualitative Not-Detected Not-Detecte [facility] PCR result d [facility] COVID-19 qualitative See link below for [facility] PCR PDF Lab RELIGION ReportComment: Case HOSPITAL Number: [id number] Specimen Nasopharyngeal swab Performing Organization Address City/[facility] Phon e Number [facility] DEPARTMENT OF PATHOLOGY AND [address] [place] [address] ECG 12 lead (02/05/2020 5:37 PM CDT) Ventricular rate 112 [facility] Atrial rate 112 [facility] OH interval 132 [facility] QRSD interval 74 [facility] QT interval 310 [facility] QTC interval 423 [facility] P axis 1 46 [facility] QRS axis 1 -5 [facility] T wave axis 83 [facility] EKG impression Sinus tachycardia-Nonspecifi c T wave abnormality-Abnormal ECG-In automated comparison with ECG of 02-APR-2018 15:46,-premature supraventricular complexes are no longer present-T wave inversion no longer H [facility] MUSE evident in Inferior leads-T wave inversion less evident in Anterolateral charla ds- Specimen Narrative Performed At This result has an attachment that is no t available. Performing Organization Address City/State/ZIP Code Phon e Number [facility] MUSE [address] [facility] [place] [address] after 02/23/2019 Insurance Payer Benefit Plan / Subscriber ID Effective Phone Address T ype Group Dates MEDICARE MEDICARE PART A [id number] 2001-Pre [place], [place] Medicare AND B sent BCBS COMMERCIAL BCBS MEDICARE [id number] 2013-Pre Commercial SUPPLEMENT sent (Home) [place] [address] Advance Directives For more information, please contact: [phone] Type Date Recorded Patient Skoog Operator Explanati on Advance Directives, Living 04/02/2018 12:40 PM Will and Medical Power of Developer Support Engineer Code Status Date Activated Date Inactivated Comments Full Code 04/02/2018 4:13 PM 04/04/2018 11:28 PM Code Status decision reached by: Patient Full Code 04/02/2018 3:58 PM 04/02/2018 4:13 PM Code Status decision reached by: Patient
[2020-02-24] MEDS ORDERED: NA CHLORIDE 0.9% 500 ML ONE (20:16)
[2020-02-24] MEDS ORDERED: MEPERIDINE HCL 25 MG/ML SYR ONE (20:16)
--- NOTE | 2020-02-24 20:30 | ER ---
Nurse's Notes [facility] Name: Stephon Baig Age: 84 yrs Sex: Male : 1935 Arrival Date: 02/24/2020 Time: 15:48 Bed 26 Private MD: Diagnosis: Torticollis;Muscle spasm;Chronic pain, not elsewhere classified Presentation: 02/23 16:25 Chief complaint: Patient states: "I've had neck pain for years but it started hurting aa5 worse about 3 days ago after I started wearing this back brace for arthritis". Pt's daughter states "[employer] gave him hydrocodone but he was hallucinating with that so they changed it to tramadol and that has not helped". Pt denies recent falls, denies recent injury. Coronavirus screen: Client denies travel out of the [place] in the last 14 days. At this time, the client does not indicate any symptoms associated with coronavirus-19. Ebola Screen: Patient negative for fever greater than or equal to 101.5 degrees Fahrenheit, and additional compatible Ebola Virus Disease symptoms. Initial Sepsis Screen: Does the patient meet any 2 criteria? No. Patient's initial sepsis screen is negative. Does the patient have a suspected source of infection? No. Patient's initial sepsis screen is negative. Risk Assessment: Do you want to hurt yourself or someone else? Patient reports no desire to harm self or others. Onset of symptoms was February 2020. 16:25 Acuity: GREGORIO 3 aa5 16:25 Method Of Arrival: Wheelchair aa5 Triage Assessment: 21:00 General: Appears uncomfortable, Behavior is calm, cooperative. rv 21:00 Pain: Complains of pain in neck. Neuro: Level of Consciousness is awake, alert, obeys rv commands, Oriented to person, place, time, situation. Cardiovascular: Patient's skin is warm and dry. Respiratory: Airway is patent Breath sounds are clear bilaterally. 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 - Social history:: Smoking status: Patient denies any tobacco usage or history of. - Family history:: not pertinent. - Hospitalizations: : Patient was recently seen at. Screenin:21 Abuse screen: Denies threats or abuse. Denies injuries from another. Nutritional rv screening: No deficits noted. Tuberculosis screening: No symptoms or risk factors identified. Fall Risk None identified. Assessment: 19:07 Reassessment: Patient is alert, oriented x 3, equal unlabored respirations, skin aa5 warm/dry/pink. Patient states feeling better. Pt states "my daughter gave me a tramadol and it helped me quite a bit", rates pain 8/10 on pain scale. . Vital Signs: 16:26 BP 111 / 49; Pulse 97; Resp 18 S; Temp 98.1(TE); Pulse Ox 100% on R/A; Weight 77.11 kg aa5 (R); Height 5 ft. 9 in. (175.26 cm) (R); Pain 10/10; 19:06 BP 113 / 56; Pulse 97; Resp 16 S; Pulse Ox 99% on R/A; aa5 21:20 Pain 0/10; rv 21:21 BP 121 / 60; Pulse 86; Resp 16; Pulse Ox 98% on R/A; rv 16:26 Body Mass Index 25.10 (77.11 kg, 175.26 cm) aa5 ED Course: 15:48 Patient arrived in ED. ds1 16:25 Arm band placed on. aa5 16:27 Triage completed. aa5 19:40 Naveen Nunez MD is Attending Physician. rn 20:00 Patient has correct armband on for positive identification. rv 20:01 Jan Ambrose RN is Primary Nurse. rv 20:15 Inserted saline lock: 20 gauge in right antecubital area, using aseptic technique. bb 21:22 No provider procedures requiring assistance completed. IV discontinued, intact, rv bleeding controlled, No redness/swelling at site. Pressure dressing applied. Administered Medications: 20:15 Drug: Demerol - Meperidine 12.5 mg {Note: rass 0.} Route: IVP; Site: right forearm; bb 21:20 Follow up: Pain 0/10 Adult; Response: No adverse reaction; Marked relief of symptoms; rv Pain is decreased; RASS: Alert and Calm (0) 20:15 Drug: NS 0.9% 500 ml Route: IV; Rate: bolus; Site: right forearm; bb 21:20 Follow up: IV Status: Completed infusion; IV Intake: 500ml rv Intake: 21:20 IV: 500ml; Total: 500ml. rv Outcome: 20:30 Discharge ordered by . rn 21:22 Discharged to home via wheelchair. rv : Condition: good 21: Discharge instructions given to patient, family, Instructed on discharge instructions, follow up and referral plans. medication usage, Demonstrated understanding of instructions, follow-up care, medications, Prescriptions given X 2. 21:22 Patient left the ED. rv Signatures: Emi Corrales ds1 Chitra Mota RN RN bb Naveen Nunez MD MD rn Calderon, Audri, RN RN aa5 Jan Ambrose RN RN rv
--- NOTE | 2020-02-24 20:31 | EDPHYS ---
Physician Documentation [facility] Name: Stephon Baig Age: 84 yrs Sex: Male : 1935 Arrival Date: 02/24/2020 Time: 15:48 Bed 26 Private MD: ED Physician Naveen Nunez HPI: 02/23 20:13 This 84 yrs old Male presents to ER via Wheelchair with complaints of Neck rn Pain, >24Hrs Old. 20:13 The patient or guardian complains of pain. The symptoms are located on the neck. rn 20:13 Onset: The symptoms/episode began/occurred 3 day(s) ago. Context: The problem was rn sustained at an unknown location. Associated signs and symptoms: Pertinent positives: This patient does not have any pertinent positive signs or symptoms associated with neck pain. Pertinent negatives: chills, fever, headache, bladder incontinence, bowel incontinence, nausea, numbness, tingling, vomiting, weakness. The pain does not radiate. Modifying factors: The symptoms are alleviated by nothing. the symptoms are aggravated by movement, pressure. Severity of symptoms: At their worst the symptoms were moderate, in the emergency department the symptoms are unchanged. The patient has experienced similar episodes in the past. Reports chronic neck pain "for years", recently fitted for back brace, admitted to hospital last week with MRI entire spine, fitted for brace, since wearing brace, increased neck pain, no pain without movement, increased pain with movement and touching area. Feels like aggravated chronic pain and not new problem. No trauma. No new neuro symptoms. . 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 - Social history:: Smoking status: Patient denies any tobacco usage or history of. - Family history:: not pertinent. - Hospitalizations: : Patient was recently seen at. ROS: 20:13 Constitutional: Negative for fever, chills, and weight loss, Eyes: Negative for injury, rn pain, redness, and discharge, Neck: + neck pain Cardiovascular: Negative for chest pain, palpitations, and edema, Respiratory: Negative for shortness of breath, cough, wheezing, and pleuritic chest pain, Abdomen/GI: Negative for abdominal pain, nausea, vomiting, diarrhea, and constipation, Back: Negative for injury MS/Extremity: Negative for injury and deformity, Skin: Negative for injury, rash, and discoloration, Neuro: Negative for headache, weakness, numbness, tingling, and seizure. Exam: 20:13 Constitutional: This is a well developed, well nourished patient who is awake, alert, rn and in no acute distress when laying down, moaning when transferring. Head/Face: Normocephalic, atraumatic. Neck: Trachea midline, no cervical LAD, tenderness when grasping muscles left side of neck. Cardiovascular: Regular rate and rhythm. No pulse deficits. Respiratory: No increased work of breathing, no retractions or nasal flaring. Skin: Warm, dry MS/ Extremity: Pulses equal, no cyanosis. Neuro: Awake and alert, GCS 15 Vital Signs: 16:26 BP 111 / 49; Pulse 97; Resp 18 S; Temp 98.1(TE); Pulse Ox 100% on R/A; Weight 77.11 kg aa5 (R); Height 5 ft. 9 in. (175.26 cm) (R); Pain 10/10; 19:06 BP 113 / 56; Pulse 97; Resp 16 S; Pulse Ox 99% on R/A; aa5 21:20 Pain 0/10; rv 21:21 BP 121 / 60; Pulse 86; Resp 16; Pulse Ox 98% on R/A; rv 16:26 Body Mass Index 25.10 (77.11 kg, 175.26 cm) aa5 MDM: 19:40 Patient medically screened. rn 20:28 Differential diagnosis: arthritis, Cervical Discogenic Pain cervical strain, rn Osteoarthritis Spondylosis torticollis. Data reviewed: vital signs, nurses notes, and as a result, I will discharge patient. Counseling: I had a detailed discussion with the patient and/or guardian regarding: the historical points, exam findings, and any diagnostic results supporting the discharge/admit diagnosis, the need for outpatient follow up, to return to the emergency department if symptoms worsen or persist or if there are any questions or concerns that arise at home. Response to treatment: the patient's symptoms have mildly improved after treatment, and as a result, I will discharge patient. ED course: Reviewed old medical records from recent admission. . 20:41 Medication response: Demerol relieved the patient's pain. The symptoms have resolved. project management intern course: Pt improved, pain resolved, will dc home. . 02/23 19:54 Order name: IV Start; Complete Time: 20:33 rn Administered Medications: 20:15 Drug: Demerol - Meperidine 12.5 mg {Note: rass 0.} Route: IVP; Site: right forearm; bb 21:20 Follow up: Pain 0/10 Adult; Response: No adverse reaction; Marked relief of symptoms; rv Pain is decreased; RASS: Alert and Calm (0) 20:15 Drug: NS 0.9% 500 ml Route: IV; Rate: bolus; Site: right forearm; bb 21:20 Follow up: IV Status: Completed infusion; IV Intake: 500ml rv Disposition: 02/24/20 20:30 Discharged to Home. Impression: Torticollis, Muscle spasm, Chronic pain, not elsewhere classified. - Condition is Stable. - Discharge Instructions: Chronic Pain, Acute Torticollis, Adult, Neck Exercises. - Prescriptions for Medrol (Joaquin) 4 mg Oral Tablets, Dose Pack - take 1 tablet by ORAL route as directed - follow package instructions; 1 packet. Cyclobenzaprine 5 mg Oral Tablet - take 1 tablet by ORAL route 3 times per day As needed; 15 tablet. - Medication Reconciliation Form, Thank You Letter, Antibiotic Education, Prescription Opioid Use form. - Follow up: Private Physician; When: As needed; Reason: Recheck today's complaints, Re-evaluation by your physician. - Problem is an ongoing problem. - Symptoms have improved. Signatures: Chitra Mota RN RN bb Naveen Nunez MD MD rn Calderon, Audri, RN RN aa5 Jan Ambrose RN RN rv Corrections: (The following items were deleted from the chart) 21:22 20:30 02/24/2020 20:30 Discharged to Home. Impression: Torticollis; Muscle spasm; rv Chronic pain, not elsewhere classified. Condition is Stable. Forms are Medication Reconciliation Form, Thank You Letter, Antibiotic Education, Prescription Opioid Use. Follow up: Private Physician; When: As needed; Reason: Recheck today's complaints, Re-evaluation by your physician. Problem is an ongoing problem. Symptoms have improved. rn
[2020-02-24 22:10] VITALS: TEMP 98.1
[2020-02-24 22:15] VITALS: BP 121/60; O2SAT 98
== END 2020-02-24 21:22 | disposition home or self-care (01) ==
LOC: ER 15:45
DX: M43.6 Torticollis (principal); M62.838 Other muscle spasm; G89.29 Other chronic pain; Z95.1 Presence of aortocoronary bypass graft; Z95.4 Presence of other heart-valve replacement
CPT/HCPCS: 96361; 96374; 99283; J2175; J7040